=== PATIENT | female | born 1940 | race Caucasian/White ===

== ENCOUNTER 2017-03-27 11:36 | Day surgery (SDC) | payer OTHER ==
--- NOTE | 2017-03-21 09:28 | MH ---
cc: CHARLES JAIN M.D. DATE OF ADMISSION: 03/27/2017 REASON FOR ADMISSION Permanent pacemaker implantation. HISTORY OF PRESENT ILLNESS The patient is a 76-year-old white female, followed in our office by Dr. Corbin Orosco, with a history of atrial fibrillation, CVA, who is now admitted for pacemaker implantation. The patient on recent Holter monitoring revealed severe bradycardia despite having her calcium channel naomi discontinued recently. She has had pauses as long as 4 seconds in duration. The patient denies chest pain, shortness of breath, dizziness, syncope, pedal edema, paroxysmal nocturnal dyspnea. The patient has noted over the past several weeks increased fatigability, often feeling like sleeping both during morning and afternoon hours. PAST MEDICAL HISTORY 1. Paroxysmal atrial fibrillation. 2. CVA 02/22/2017. 3. Diabetes. 4. Hypertension. 5. Hyperlipidemia. MEDICATIONS Cardiac medications: 1. Atorvastatin 40 mg q.h.s. 2. Clonidine 0.2 mg t.i.d. 3. Eliquis 5 mg b.i.d. 4. Furosemide 20 mg q. daily. 5. Lisinopril 10 mg q. daily. ALLERGIES No known drug allergies. FAMILY HISTORY Noncontributory. SOCIAL HISTORY The patient has never smoked cigarettes. She drinks occasional alcohol. REVIEW OF SYSTEMS As in the history of present illness, otherwise negative or noncontributory. PHYSICAL EXAMINATION VITAL SIGNS: On exam blood pressure 140/70 with a pulse of 80, respirations 15. GENERAL: In general she is a well-developed, well-nourished white female in no acute distress. HEENT/NECK: Jugular venous pressure is normal. Carotid pulses are 2+ bilaterally and without bruits. CHEST: Examination of the chest reveals clear lung stephens. CARDIAC: On cardiac examination she has an irregularly irregular rhythm without S3 or murmur. ABDOMEN: On abdominal examination she has a soft, nontender abdomen. Bowel sounds are present. There is no definite hepatosplenomegaly. EXTREMITIES: Examination of the extremities reveals no clubbing, cyanosis or edema. IMPRESSION Severe bradycardia with recent Holter monitoring revealing multiple pauses as long as 4 seconds in duration in this 76-year-old white female with a history of paroxysmal atrial fibrillation, CVA, diabetes, hypertension, hyperlipidemia. She has been recommended by her primary engineer chief, Dr. Corbin Orosco, permanent pacemaker implantation. The nature of this procedure and the potential risks including but not limited to cardiac perforation, pneumothorax, bleeding, infection, have been outlined to the patient. She agrees to proceed. PLAN Permanent pacemaker implantation on 03/26/2017, holding Eliquis two days in advance of the procedure. MD BRYANT Mina/BT /11:18 AM /9:31 AM DEVON
[~2017-03-27] VITALS: Ht 167.6 cm; Wt 71.5 kg
[2017-03-27] VITALS (10 sets, daily range): BP systolic 151–186; BP diastolic 93–114; PULSE 68–80; RESP 18; TEMP 97.5–98.4; O2SAT 95
[~2017-03-27 11:36] MED LIST: 1-ME1LIQ PO; CHOL1CAP6 OR; CIPR1TAB50 PO; CLON.2 PO; FISH1000 PO; FLAG500T OR; LORT5TAB PO; METO50TA PO; RED600TA OR
[2017-03-27] MEDS ORDERED: CHOL1CAP14 PO (12:15)
[2017-03-27] MEDS ORDERED: CHLORHEXIDINE GLUCONATE 2 % 1 PACK (2 CLOTHS) TOPICAL SCH (12:15)
[2017-03-27] MEDS ORDERED: APIX5TAB PO (12:15)
[2017-03-27] MEDS ORDERED: DILT-4 PO (12:15)
[2017-03-27] MEDS ORDERED: POVIDONE IODINE 5% (ANTISEPSIS KIT) 4 APPLICATIONS EACH NARE SCH (12:15)
[2017-03-27] MEDS ORDERED: METOPROLOL TARTRATE 25 MG TAB PO PRN (12:15)
[2017-03-27] MEDS ORDERED: Hold AM Insulin & AM Hypoglycemic medications in diabetic patients PRN (12:15)
[2017-03-27] MEDS ORDERED: ATOR40TA16 PO (12:15)
[2017-03-27] MEDS ORDERED: TYLE325T PO (12:15)
[2017-03-27] MEDS ORDERED: ceFAZolin 2 GM PREMIX 50 ML IV SCH (12:15)
[2017-03-27] MEDS ORDERED: METF500T PO (12:15)
[2017-03-27] MEDS ORDERED: VANCOMYCIN 1000 MG/NS 250 ML IV SCH ×2 (12:15)
[2017-03-27] MEDS ORDERED: LACTATED RINGER'S 1000 ML IV PRN (12:15)
[2017-03-27] MEDS ORDERED: FISHCAP4 PO (12:15)
[2017-03-27] MEDS ORDERED: SODIUM CHLORID 0.9% 500 ML IV PRN (12:15)
[2017-03-27] MEDS ORDERED: FURO20TA PO (12:15)
[2017-03-27] MEDS ORDERED: POVIDONE IODINE 5% (ANTISEPSIS KIT) 4 APPLICATIONS EACH NARE PRN (12:15)
[2017-03-27] MEDS ORDERED: LISI10TA3 PO (12:15)
[2017-03-27] MEDS ORDERED: CHLORHEXIDINE GLUCONATE 2 % 1 PACK (2 CLOTHS) TOPICAL PRN (12:15)
[2017-03-27] MEDS ORDERED: CLON0.2T PO (12:15)
[2017-03-27] MEDS ORDERED: NO Heparin, Lovenox, Coumadin at least 12 hours prior to procedure. PRN (12:15)
[2017-03-27] MEDS ORDERED: INSULIN HUMAN REGULAR 1,000 UNITS/10 ML VIAL SQ PRN (12:15)
[2017-03-27 12:31] LABS: AUTOMATED NEUTROPHIL # 5.2 TH/MM3 (1.8-7.7); BASOPHIL % 0.5 % (0.0-2.0); EOSINOPHIL # 0.2 TH/MM3 (0-0.4); EOSINOPHIL % 2.1 % (0.0-4.0); HEMATOCRIT 41.6 % (35.0-46.0); HEMO FLAGS DIFF FINAL; LYMPH % 33.1 % (9.0-44.0); LYMPHOCYTE # 2.9 TH/MM3 (1.0-4.8); MEAN CELL VOLUME 88.8 FL (80.0-100.0); MEAN CORPUSCULAR HEMOGLOBIN 29.7 PG (27.0-34.0); MEAN CORPUSCULAR HGB CONC 33.4 % (32.0-36.0); MONO % 5.6 % (0.0-8.0); NEUT % 58.7 % (16.0-70.0); PLATELET COUNT 223 TH/MM3 (150-450); RED BLOOD COUNT 4.69 MIL/MM3 (4.00-5.30); RED CELL DISTRIBUTION WIDTH 15.9 % (11.6-17.2); WHITE BLOOD COUNT 8.8 TH/MM3 (4.0-11.0)
[2017-03-27 12:39] LABS: APTT (PATIENT) 28.6 SEC (24.3-30.1); PROTHROMBIN TIME - PATIENT 11.3 SEC (9.8-11.6)
[2017-03-27] MEDS ORDERED: NS 1000 ML IV SCH (13:00)
[2017-03-27] MEDS ORDERED: MUPIROCIN 2% OINT 1 APPLIC/GM SYR NASAL SCH (13:00)
[2017-03-27 13:04] LABS: BICARBONATE 29.9 MEQ/L (21.0-32.0); POTASSIUM 3.2 MEQ/L (3.5-5.1)
[2017-03-27] MEDS ORDERED: VANCOMYCIN 500 MG VIAL ONE (13:58)
[2017-03-27] MEDS ORDERED: LIDOCAINE HCL 2% 50 ML VIAL ONE (13:58)
[2017-03-27] MEDS ORDERED: MIDAZOLAM HCL 2 MG/2 ML VIAL ONE (13:58)
[2017-03-27] MEDS ORDERED: traMADol HCL 50 MG TAB PO PRN (15:00)
[2017-03-27] MEDS ORDERED: ZOLPIDEM TARTRATE 5 MG TAB PO PRN (15:00)
[2017-03-27] MEDS ORDERED: ACETAMINOPHEN 325 MG TAB PO SCH (15:00)
--- NOTE | 2017-03-27 15:05 | CATHPROC ---
[facility] HIS Report Study Information Study Number Admission Scheduled Start Study Start [id number] Mar 27 2017 11:36AM 03/27/2017 Mar 27 2017 1:37PM [facility] Cardiac Pacer/ICD Admit Source Facility Department Other [facility] - [employer] Operator Physician and Clinical Staff Initial Tao Dahl Buyer Grain Soledad Montero RN Other Anesthesia, SENIOR GENETIC COUNSELOR Recorder Umm Arais BSRJt Scrub Charly Fernandez,RT(R) Procedures Performed Procedure Lead Insertion Equipment Time Couture Dressmaker Description Size Mfg Part Number Used/Scraped 14:31 BIOTRONIK LEAD, SOLIA 60 PRO MRI * [id number] Used 14:37 BIOTRONIK PACEMAKER, ELUNA 8 SR-T * [id number] Used [id number] 13:38 MEDLINE INDUSTRIES SUTURE, STRIP PLUS 1/2" * Used *[id number] 13:38 MEDLINE PACER ADHESIVE, MASTISOL 2/3CC 2/3CC 0523-48 Used 13:38 MEDLINE PACER GRIFFIN, LIMB * 2530 *[id number] Used [id number] 13:38 MEDLINE PACER PACK, PACER CUSTOM * Used *[id number] 13:38 MEDLINE PACER PEN, SKIN DUAL W/ RULER * Used *[id number] 13:42 [facility] Yovia PACER SAFE SHEATH, FR6, 13CM FR 6 [id number] Used 14:20 Needle Sponge Count 2 22 Used 14:42 Needle Sponge Count 2 22 Used 14:53 Needle Sponge Count 2 22 Used 14:19 Needle Sponge Count 20 200 Used 14:20 Needle Sponge Count 25 1 Used 14:42 Needle Sponge Count 25 1 Used 14:53 Needle Sponge Count 25 1 Used 14:52 Needle Sponge Count 3 3 Used 14:42 Needle Sponge Count 3 3 Used 14:19 Needle Sponge Count 3 3 Used [id number] *[id number] SUTURE, 3-0 VICRYL [SH] ([id number]) SUTURE, 3-0 VICRYL [SH] ([id number]) SUTURE, 4-0 MONOCRYL [PS2] (Y496G) [id number] 13:38 [employer],WARM AIR CCL * Used *[id number] [facility] PAD, ELECTROSURGICAL 13:38 * [id number] *[id number] Used SURGICAL GROUNDING ORANGE [id number] 13:38 [employer] WILLIAM. ELECTRODE, PRO-PADZ BIPHASIC * Used *[id number] Equipment Model, Serial, Lot Number and Expiration Data Description Model Number Serial Number Lot Number Expiration Date LEAD, SOLDANIS 60 PRO MRI [id number] 10-30-2018 PACEMAKER, ELUNA 8 SR-T [id number] 06-01-2018 History: Current Medications Medication Dosage/Unit Route Frequency Last Date/Time Taken Statins (any) CLONIDINE ELIQUIS LASIX LISINOPRIL History: Allergies Allergy Reaction NKDA History: Risk Factors Family History of Hypertension Dyslipidemia Previous CA Previous Heart Failure Premature CAD Yes Yes No No Yes Prior Valve Prior PCI Prior CABG Surgery No No No Cerebrovascular Peripheral Artery Chronic Lung On Dialysis Diabetes Diabetes Therapy Disease Disease Disease No Yes No No Yes Oral History: Risk Factors Selection Items Diabetes Hyperlipidemia History: Other Disease Selection Items HTN Stroke Labs Hgb (g/dl) Hct (%) RBC (MIL/MM3) WBC (l/cumm) Platelets (thousands) 11.60-17.00 35.00-51.00 4.00-5.90 4.00-11.00 150.00-450.00 13.9 41.6 4.6 8.8 223 Glucose (mg/dl) BUN (mg/dl) Creatinine (mg/dl) BUN:Creatinine (1:x) 74.00-106.00 7.00-18.00 0.50-1.30 10.00-20.00 100 18 1.3 13.8 Na (meq/l) K (meq/l) Cl (meq/l) CO2 (mmol/L) Ca (mg/dl) 136.00-145.00 3.50-5.10 98.00-107.00 21.00-32.00 8.50-10.10 143 3.2 104 29.9 9.8 INR (PTT:PT) 0.90-1.10 1 Medication Medication Total Dose (Bolus/Oral) Medication Total Dosage/Unit 2% XYLOCAINE 50 mL Medications (Bolus/Oral) Medication Time Given Dosage/Unit Administered By Reason 2% XYLOCAINE 03/27/2017 2:28:00 PM 50 mL Tao Monahan For pain 50 mL 2% XYLOCAINE given in lab by Tao Monahan via Subcutaneous. Ordered by Tao Monahan. Reason: Fo r pain. Medication (Drip) Medication Time Given Dosage/Unit Concentration/Unit Diluent (ml) Solution ANCEF 03/27/2017 1:55:00 PM 2 g 2 g ANCEF given in lab by Anesthesia, SENIOR GENETIC COUNSELOR in Right Antecubital via Peripheral IV. Ordered by Tao Monahan. Reason: As per physicians verbal order. IV Solutions 03/27/2017 2:01:08 PM 0 mL (IV) NaCl .9 IV Solutions given in lab by Anesthesia, SENIOR GENETIC COUNSELOR in Right Antecubital via Peripheral IV. Pump/Drip Flow = 50 ml/hr using NaCl .9. Ordered by Tao Monahan. Reason: As per physicians verbal order. IV Solutions 03/27/2017 2:01:50 PM 0 mL (IV) NaCl .9 IV Solutions given in lab by Anesthesia, SENIOR GENETIC COUNSELOR in Left Antecubital via Peripheral IV. Pump/Drip Flow = 50 ml/hr using NaCl .9. Ordered by Tao Monahan. Reason: As per physicians verbal order. VANCOMYCIN DRIP 03/27/2017 1:55:00 PM 1 g 1 g VANCOMYCIN DRIP given in lab by Anesthesia, SENIOR GENETIC COUNSELOR in Left Antecubital via Peripheral IV. Ordered b Tao Harrell. Reason: As per physicians verbal order. Initial Case Assessment Cardiovascular HR NIBP 67 192/124 Edema Present Skin color Skin None Normal Warm Dry Neurological State Oriented to time-place- Alert Moves all extremities person Respiration - General Respiration Rate SpO2 (%) (B/min) 18 100 Final Case Assessment Cardiovascular HR NIBP 60 140/84 Edema Present Skin color Skin None Normal Warm Dry Neurological State Oriented to time-place- Alert Moves all extremities person Respiration - General Respiration Rate SpO2 (%) (B/min) 18 100 Chronological Log Time Study Chronological Log 13:45:44 Patient arrived via Bed. 13:45:46 Patient Name, D.O.B, / Armband Verified By R.N. 13:45:48 Consent signed by the physician and the patient and verified by the [employer] Operator staff. 13:45:51 Pre-op and post- op instructions given; patient acknowledges understanding of instructions. 13:45:53 Anesthesia at bedside. Assumes care of patient. Maikol SENIOR GENETIC COUNSELOR 2 g ANCEF given in lab by Anesthesia, SENIOR GENETIC COUNSELOR in Right Antecubital via Peripheral IV. Ordered by Tao Rose. Reason: 13:55:00 As per physicians verbal order. 1 g VANCOMYCIN DRIP given in lab by Anesthesia, SENIOR GENETIC COUNSELOR in Left Antecubital via Peripheral IV. Ord ered by Tao Monahan. 13:55:00 Reason: As per physicians verbal order. 13:55:48 Presedation assessment performed by Tire Builder Operator RN. 13:55:57 Patient has been NPO for More than 6Hrs. 13:56:00 Skin Breakdown- none 13:58:38 Patient Warmer Placed on the Table. 14:00:12 Disposable Defibrillator Pads Placed On Patient. 14:00:15 [place]ane Prominences Protected 14:00:20 A # 20 IV was noted in the Antecubital (left). Grade = ~GRADE~ 14:00:37 A # 20 IV was noted in the Antecubital (right). Grade = ~GRADE~ IV Solutions given in lab by Anesthesia, SENIOR GENETIC COUNSELOR in Right Antecubital via Peripheral IV. Pump/Drip Flow = 50 ml/hr using 14:01:08 NaCl .9. Ordered by Tao Monahan. Reason: As per physicians verbal order. IV Solutions given in lab by Anesthesia, SENIOR GENETIC COUNSELOR in Left Antecubital via Peripheral IV. Pump/Drip Flow = 50 ml/hr using 14:01:50 NaCl .9. Ordered by Tao Monahan. Reason: As per physicians verbal order. 14:03:18 History and physical on the chart or being dictated. Assessment: Initial Case, HR=67 BPM, YDCN=189/124 mmhg, Edema=None, Color=Normal, Skin = Warm, Dry 14:03:22 Neurological: State=Alert, Ox3, HERRERA Respiration: Resp=18 B/min, JkO8=313 % 14:04:13 Table restraints applied according to hospital policy 14:04:18 Left Upper Chest Prepped Times Two. 14:04:32 Bovie ground pad applied to: right thigh 14:04:49 2% CHLORHEXIDINE GLUCONATE WASH AND NASAL SWIPE DONE PRIOR TO PROCEDURE. First Sponge And Instrument Count Done by Soledad Montero RN. 14:19:09 Hypo's: 3, Sponges: 25, Bovie/scratch: 2 Sutures: 6, Blades: 2, Instruments: 26, Syveck Patches: 0 14:21:27 Immediate Presedation assesment performed by physician. Time Out. Correct patient, procedure, procedure equipment, site and side verified with physicia n present. Time 14:26:05 concurred by MD, individual staff and SENIOR GENETIC COUNSELOR. Time Out #2 - Consents verified, patient in correct position, all results are labled and displa yed, safety precautions 14:26:11 taken, antibiotics administered. Time out concurred by MD, individual staff and SENIOR GENETIC COUNSELOR in procedu re 14:26:13 Case Start 14:28:00 50 mL 2% XYLOCAINE given in lab by Tao Monahan via Subcutaneous. Ordered by Tao Monahan. Reason: For pain. 14:29:16 Vascular access was obtained in the Subclav. Vein (Lft. 14:29:23 Surgical Incision Made. 14:30:32 A pocket was created at the L Upper Chest. 14:30:50 A SAFE SHEATH, FR6, 13CM FR 6 was advanced into the Subclav. Vein (Lft using the Percutaneo us technique. 14:33:49 A LEAD, SOLIA 60 PRO MRI * was inserted and positioned in the RV. 14:33:57 Lead placement verified under fluoroscopy 14:34:29 The RV lead impedance and threshold being tested. 14:35:20 The RV lead was sutured to the fascia. 14:41:07 A PACEMAKER, ELUNA 8 SR-T * was connected and placed in the pocket. Second Sponge And Instrument Count Done by Tao Monahan. 14:41:13 Hypo's: 3, Sponges: 25, Bovie/scratch: 2 Sutures: ~SUTURE~, Blades: 2, Instruments: ~INSTRU~, Syveck Patches: ~SYVECK PATCH~ 14:42:41 The pocket was closed. 14:42:51 Implant Procedure was performed. 14:43:00 A PPM Implant . (Single) The Final Sponge And Instrument Count Done by Tao Monahan. 14:53:00 Hypo's: 3, Sponges: 25, Bovie/scratch: 2 Sutures: 6, Blades: 2, Instruments: 26, Syveck Patches: 0 Assessment: Final Case, HR=60 BPM, OWEZ=636/84 mmhg, Edema=None, Color=Normal, Skin = Warm, Dry 14:54:15 Neurological: State=Alert, Ox3, HERRERA Respiration: Resp=18 B/min, AwQ3=686 % 14:55:23 Sterile dressing applied to site 14:56:10 A sling was placed on the affected arm. 14:56:15 Defibrillator and ground pads removed. Skin intact. 14:56:22 Case End 14:56:40 No case complications noted. 14:56:43 Cine recording checked. 14:56:49 Holding Area notified of successful intervention. 14:56:52 Bedside Report will be given. 14:56:54 Implantable Device card placed in patient's chart. 14:56:56 Contrast Scanned 14:57:05 Verbal Stimulation=2 Physical Stimulation=2 Airway=2 Respiration=2 TOTAL=10. (0=absent, 1= limited, 2=present) 15:03:44 Patient moved to stretcher and transported to DOCU in stable condition. End Study - Contrast Media Used In Study Contrast Total Opened (mL) Total Used (mL) Total Wasted (mL) Omnipaque 50 10 40 End Study - Maximum Contrast Load Max Contrast Load (mL) 280.8 End Study - Radiation Exposure Fluoro Time (minutes) 2.3 End Study - Patient Disposition Complications Transferred To Interventional Outcome No Telemetry Bed successful
[2017-03-27] MEDS ORDERED: POTASSIUM CHLORIDE 10 MEQ CONTROLLED RELEASE TAB PO ONE (15:15)
[2017-03-27] MEDS ORDERED: PROPOFOL 200 MG/20 ML AMP IV ONE (17:11)
--- NOTE | 2017-03-27 17:17 | RADRPT ---
EXAM DATE/TIME: 03/27/2017 15:29 [facility] COMPARISON: No previous studies available for comparison. INDICATIONS : Post pacemaker placement. MEDICAL HISTORY : None. SURGICAL HISTORY : Pacemaker. ENCOUNTER: Initial ACUITY: 1 day PAIN SCORE: Non-responsive. LOCATION: Bilateral chest FINDINGS: There is a single lead pacemaker with lead projecting over the right ventricle. No significant pneumo thorax. Minimal linear opacities in the left lower lung zone consistent with atelectasis/scarring. Ca rdiac silhouette is borderline enlarged. Bony thorax is intact. CONCLUSION: 1. Single lead pacemaker with lead projecting over the right ventricle. No pneumothorax. Jhonny Coy MD on March 27, 2017 at 17:14 Board Certified Radiologist. This report was verified electronically.
[2017-03-27] MEDS ORDERED: metFORMIN HCL 500 MG TAB PO SCH (18:00)
[2017-03-27] MEDS: FUROSEMIDE 20 MG TAB PO SCH (18:31)
[2017-03-27] MEDS: LISINOPRIL 10 MG TAB PO SCH (18:32)
[2017-03-27] MEDS: cloNIDine HCL 0.2 MG TAB PO SCH (20:02)
[2017-03-27] MEDS ORDERED: ATORVASTATIN 40 MG TAB PO SCH (21:00)
[2017-03-28] VITALS (8 sets, daily range): BP systolic 166–188; BP diastolic 102–105; PULSE 59–77; RESP 18–20; TEMP 98.2–98.7; O2SAT 95–96
[2017-03-28] MEDS ORDERED: VANCOMYCIN INJ 1,000 MG in SODIUM CHLOR 0.9% 250 ML INJ 250 ML IV ONE (03:00)
[2017-03-28 06:32] LABS: POTASSIUM 3.1 MEQ/L (3.5-5.1)
[2017-03-28] MEDS: cloNIDine HCL 0.2 MG TAB PO SCH (08:05)
[2017-03-28] MEDS: FUROSEMIDE 20 MG TAB PO SCH (08:05)
[2017-03-28] MEDS: LISINOPRIL 10 MG TAB PO SCH (08:05)
--- NOTE | 2017-03-28 08:33 | PD.CARD.PN ---
Subjective Subjective Remarks Feels "great". Denies dyspnea, incisional pain, dizziness. Objective Medications Item Value Date Time Atorvastatin 40 mg 03/27/172099 Calcium HS/PO 03/27/172001 (Lipitor) Clonidine 0.2 mg 03/27/172099 (Catapres) BID/PO 03/28/17804 Lisinopril 10 mg 03/27/171822 (Prinivil) DAILY/PO 03/28/17804 Furosemide 20 mg 03/27/171821 (Lasix) DAILY/PO 03/28/17804 Vital Signs / I&O Vital Signs Date Time Temp Pulse Resp B/P Pulse Ox O2 Delivery O2 Flow Rate FiO2 03/28/17 07:48 77 03/28/17 07:48 98.7 77 20 188/105 96 03/28/17 06:00 60 03/28/17 05:00 60 03/28/17 04:00 98.2 64 18 166/102 95 03/28/17 04:00 60 03/28/17 03:00 64 03/28/17 02:00 70 03/28/17 01:00 59 03/28/17 00:00 65 03/27/17 23:24 98.4 70 18 157/93 95 03/27/17 23:00 78 03/27/17 22:00 68 03/27/17 21:00 78 03/27/17 20:00 98.0 72 18 151/107 95 03/27/17 20:00 74 03/27/17 19:00 80 03/27/17 18:40 169/114 03/27/17 18:00 78 03/27/17 17:00 73 03/27/17 12:17 97.5 76 18 186/102 95 I/O 03/27/17 03/27/17 03/27/17 03/28/17 03/28/17 03/28/17 07:00 15:00 23:00 07:00 15:00 23:00 Intake Total 490 ml Output Total 800 ml Balance -310 ml Intake Oral 240 ml IV Total 250 ml Output Urine Total 800 ml Physical Exam Pacer site clean, dry, intact, no hematoma. Laboratory Laboratory Tests Test 03/27/17 03/28/17 12:07 03:52 White Blood Count 8.8 TH/MM3 Red Blood Count 4.69 MIL/MM3 Hemoglobin 13.9 GM/DL Hematocrit 41.6 % Mean Corpuscular Volume 88.8 FL Mean Corpuscular Hemoglobin 29.7 PG Mean Corpuscular Hemoglobin 33.4 % Concent Red Cell Distribution Width 15.9 % Platelet Count 223 TH/MM3 Mean Platelet Volume 8.9 FL Neutrophils (%) (Auto) 58.7 % Lymphocytes (%) (Auto) 33.1 % Monocytes (%) (Auto) 5.6 % Eosinophils (%) (Auto) 2.1 % Basophils (%) (Auto) 0.5 % Neutrophils # (Auto) 5.2 TH/MM3 Lymphocytes # (Auto) 2.9 TH/MM3 Monocytes # (Auto) 0.5 TH/MM3 Eosinophils # (Auto) 0.2 TH/MM3 Basophils # (Auto) 0.0 TH/MM3 CBC Comment DIFF FINAL Differential Comment Prothrombin Time 11.3 SEC Prothromb Time International 1.0 RATIO Ratio Activated Partial 28.6 SEC Thromboplast Time Sodium Level 143 MEQ/L 143 MEQ/L Potassium Level 3.2 MEQ/L 3.1 MEQ/L Chloride Level 104 MEQ/L 106 MEQ/L Carbon Dioxide Level 29.9 MEQ/L 27.0 MEQ/L Anion Gap 9 MEQ/L 10 MEQ/L Blood Urea Nitrogen 18 MG/DL 24 MG/DL Creatinine 1.34 MG/DL 1.34 MG/DL Estimat Glomerular Filtration 38 ML/MIN 38 ML/MIN Rate Random Glucose 100 MG/DL 99 MG/DL Calcium Level 9.8 MG/DL 9.5 MG/DL Imaging Last 48 hours Impressions Chest X-Ray 03/27/17 9018 Signed Impressions: Service Date/Time: Monday, March 27, 2017 15:29 - CONCLUSION: 1. Single lead pacemaker with lead projecting over the right ventricle. No pneumothorax. Jhonny Coy MD Assessment and Plan Problem List: (1) Status post placement of cardiac pacemaker Assessment and Plan: Stable overnight. Pacer site OK. Pacer function OK on re -interrogation. Post op CXR shows no PNTX. To discharge today, same home medications plus Levaquin 250 mg qd for 5 days, one week f/u for incision recheck. (2) Hypertension Assessment and Plan: Suboptimal BP control. Office records indicate patient was taking clonidine TID. Will increase Lisinopril to 40 mg qd. Patient also hypokalemic, taking diuretic. Will add KCl 20 mEq qd. (3) Chronic atrial fibrillation Assessment and Plan: Stable. No HR control issues evident. Resume anticoagulation therapy. Code Status full code Discussed Condition With patient Problem Qualifiers (1) Hypertension: Qualified Code: I10 - Essential hypertension Tao Monahan MD Mar 28, 2017 08:33
[2017-03-28] MEDS ORDERED: LEVA250T14 PO (08:41)
[2017-03-28] MEDS ORDERED: POTA-243 PO (08:41)
[2017-03-28] MEDS ORDERED: LISI40TA PO (08:41)
[2017-03-28] MEDS ORDERED: POTASSIUM CHLORIDE 10 MEQ CONTROLLED RELEASE TAB PO ONE (08:45)
[2017-03-28] MEDS ORDERED: LISINOPRIL 10 MG TAB PO SCH (09:00)
[2017-03-28] MEDS ORDERED: CHOLECALCIFEROL (VIT D3) 5000 UNIT CAP PO SCH (09:00)
[2017-03-28] MEDS ORDERED: NON-FORMULARY DRUG (Fish Oil-Cholecalciferol (Fish Oil + D3) 1 CAP) PO SCH (09:00)
--- NOTE | 2017-03-28 13:02 | EKG ---
Date Performed: 03/27/2017 Time Performed: 12:41:52 PTAGE: 76 years EKG: Atrial fibrillation Right bundle branch block Possible septal infarct - age undetermined Le ft ventricular hypertrophy Inferior/lateral ST-T changes may be due to hypertrophy and/or ischemia Ab normal ECG PREVIOUS TRACING : 12/25/2004 16.48 DOCTOR: Constantin Walker Interpretating Date/Time 03/28/2017 12:56:10
--- NOTE | 2017-03-28 14:13 | MP ---
cc: EVERETT GARRETT MD, GLENN H. M.D. DATE OF SURGERY 03/27/2017 PROCEDURE Single chamber permanent pacemaker implantation via the left subclavian vein. INDICATIONS Severe symptomatic bradycardia. OPERATIVE NOTES The patient was brought to the operating suite in a fasting state after having signed informed consent. The left upper chest was prepped and draped as per policy and anesthetized with 1% lidocaine. After administration of 10 cc of contrast through a left arm peripheral IV, central venous access was obtained via the left subclavian vein using modified Seldinger technique without difficulty. A transverse incision was made inferior to the left clavicle and using blunt dissection a subcutaneous pocket was formed down to the pectoralis fascia. Over the guidewire a 6-Nauruan sheath was placed and through this sheath a ventricular active fixation lead was introduced and its tip positioned in the right ventricular apex where good current of injury, stimulation threshold (0.6 volts) and sensitivity (6.8 mV) were demonstrated. This lead was secured into place using 2-0 silk ties down to the pectoralis fascia. The lead was connected to the pacemaker generator which is a Biotronik Eluna device. The lead and the generator were placed back into the subcutaneous pocket which was closed using 3-0 Vicryl interrupted stitches in two layers to close the subcutaneous tissue and then 4-0 Monocryl running stitch to close the subcuticular tissue. Overlapping Steri-Strips and a dressing were applied. There were no apparent immediate complications. CONCLUSION Successful single chamber permanent pacemaker implantation via the left subclavian vein using a Biotronik Eluna pacemaker generator. Tao Monahan MD [facility] /2:54 PM /2:04 PM [facility]ON
== END 2017-03-28 15:20 | disposition home or self-care (01) ==
LOC: HSDC 11:36 → HDIC 11:37 → HCIN 17:31 → HSDC 03-28 15:20
PROVIDERS: ATTEND Internal Medicine Cardiovascular Disease
DX: I49.5 Sick sinus syndrome (principal); I48.0 Paroxysmal atrial fibrillation; E11.9 Type 2 diabetes mellitus without complications; I10 Essential (primary) hypertension; E78.5 Hyperlipidemia, unspecified; R53.83 Other fatigue; E87.6 Hypokalemia; Z86.73 Personal history of transient ischemic attack (TIA), and cerebral infarction without residual deficits; Z79.01 Long term (current) use of anticoagulants
CPT/HCPCS: 00530; 33207; 71010; 80048; 85025; 85610; 85730; 93005; C1786; C1898; J0690; J2250; J3010; J3370; J7050

== ENCOUNTER 2018-01-22 07:26 | Inpatient (IN) | payer OTHER, MEDICARE ==
[2018-01-22] VITALS (8 sets, daily range): BP systolic 86–117; BP diastolic 51–73; PULSE 60–73; RESP 14–20; TEMP 97.3–98; O2SAT 96–100
[~2018-01-22] VITALS: Ht 167.6 cm; Wt 75.0 kg
[~2018-01-22 07:26] MED LIST changes: -1-ME1LIQ PO; +APIX5TAB PO; +ATOR40TA16 PO; -CHOL1CAP6 OR; -CIPR1TAB50 PO; -CLON.2 PO; +CLON0.2T PO; +D 50CAP2 PO; +DILT-4 PO; -FISH1000 PO; +FISHCAP4 PO; -FLAG500T OR; +FURO20TA PO; +KLOR10TA PO; +LEVA250T14 PO; +LISI40TA PO; -LORT5TAB PO; +METF500T PO; -METO50TA PO; -RED600TA OR; +TYLE325T PO
[2018-01-22] MEDS ORDERED: SODIUM CHLORID 0.9% 500 ML INJ 500 ML IV ONE ×2 (08:15→09:30)
[2018-01-22] MEDS ORDERED: SODIUM CHLORIDE 0.9% FLUSH 10 ML FLUSH IVF PRN (08:15)
--- NOTE | 2018-01-22 08:17 | PD ---
HPI Chief Complaint: General Weakness Time Seen by Provider: 08:13 Travel History International Travel<30 days: No Contact w/Intl Traveler<30days: No Traveled to known affect area: No History of Present Illness HPI 77-year-old female patient with history of previous stroke, pacemaker, presents to the ER today because she states that she got up to go to the bathroom this morning and is fell down the floor, feels very weak. She states that she has been feeling weak for several days. She denies any fevers, nausea, vomiting, chest pains, trouble breathing, abdominal pains, black stools, blood in the stools. She denies any other issues. She states she has not been eating very well recently because she just does not feel like eating. Modifying Factors: None Associated Signs & Symptoms: General weakness Risk Factors: Elderly PFSH Past Medical History Asthma: No Autoimmune Disease: No Blood Disorders: No Anxiety: No Depression: No Heart Rhythm Problems: Yes Cancer: No Cardiovascular Problems: Yes High Cholesterol: Yes Chest Pain: No Congestive Heart Failure: No Cerebrovascular Accident: Yes (CVA 2010) Diabetes: Yes Patient Takes Glucophage: Yes Endocrine: No Glaucoma: No Genitourinary: No Headaches: No Hepatitis: No Hiatal Hernia: No Hypertension: Yes Musculoskeletal: No Neurologic: Yes Psychiatric: No Respiratory: No Myocardial Infarction: No Seizures: No Sickle Cell Disease: No Sleep Apnea: No Thyroid Disease: No : 4 Para: 4 Past Surgical History Abdominal Surgery: No AICD: No Cardiac Surgery: Yes (pacemaker) Ear Surgery: No Endocrine Surgery: No Eye Surgery: Yes (LT CATARACT) Genitourinary Surgery: No Gynecologic Surgery: Yes Oral Surgery: No Pacemaker: Yes Thoracic Surgery: No Social History Alcohol Use: No Tobacco Use: No Substance Use: No Allergies-Medications (Allergen,Severity, Reaction): Coded Allergies: No Known Allergies (Verified Adverse Reaction, Unknown, 01/22/18) Reported Meds & Prescriptions Reported Meds & Active Scripts Active Klor-Con 10 (Potassium Chloride) 10 Meq Tab 10 Meq PO BID 30 Days Reported Tiazac (Diltiazem ER 24 HR) 120 Mg Caper 120 Mg PO DAILY Metformin (Metformin HCl) 500 Mg Tab 500 Mg PO BIDPC With meals Furosemide 20 Mg Tab 20 Mg PO DAILY Fish Oil + D3 (Fish Oil-Cholecalciferol) 1,200-1,000 Mg-Unit Cap 1 Cap PO DAILY Eliquis (Apixaban) 5 Mg Tab 5 Mg PO BID D3 Maximum Strength (Cholecalciferol) 5,000 Unit Cap 5,000 Units PO DAILY Clonidine (Clonidine HCl) 0.2 Mg Tab 0.2 Mg PO BID Atorvastatin (Atorvastatin Calcium) 40 Mg Tab 40 Mg PO HS Review of Systems Except as stated in HPI: all other systems reviewed are Neg Physical Exam Narrative GENERAL: Well-developed elderly white female patient in moderate distress. Appears fatigued. Awake and oriented 3. SKIN: Warm and dry. HEAD: Atraumatic. Normocephalic. EYES: Pupils equal and round. No scleral icterus. No injection or drainage. Pale conjunctiva. ENT: No nasal bleeding or discharge. Mucous membranes pink and moist. NECK: Trachea midline. No JVD. CARDIOVASCULAR: Regular rate and rhythm. RESPIRATORY: No accessory muscle use. Clear to auscultation. Breath sounds equal bilaterally. GASTROINTESTINAL: Abdomen soft, non-tender, nondistended. Hepatic and splenic margins not palpable. MUSCULOSKELETAL: Extremities without clubbing, cyanosis, or edema. No obvious deformities. NEUROLOGICAL: Awake and alert. No obvious cranial nerve deficits. Motor grossly within normal limits. Five out of 5 muscle strength in the arms and legs. Normal speech. PSYCHIATRIC: Appropriate mood and affect; insight and judgment normal. Data Data Last Documented VS Vital Signs Date Time Temp Pulse Resp B/P (MAP) Pulse Ox O2 Delivery O2 Flow Rate FiO2 01/22/18 10:32 88/55 (66) 01/22/18 08:17 16 96 Room Air 01/22/18 07:40 97.5 66 Orders Orders Electrocardiogram (01/22/18 08:13) Complete Blood Count With Diff (01/22/18 08:13) Comprehensive Metabolic Panel (01/22/18 08:13) Magnesium (Mg) (01/22/18 08:13) Ckmb (Isoenzyme) Profile (01/22/18 08:13) Troponin I (01/22/18 08:13) Act Partial Throm Time (Ptt) (01/22/18 08:13) Prothrombin Time / Inr (Pt) (01/22/18 08:13) Urinalysis - C+S If Indicated (01/22/18 08:13) Chest, Single Ap (01/22/18 08:13) Ct Brain W/O Iv Contrast(Rout) (01/22/18 08:13) Ecg Monitoring (01/22/18 08:13) Iv Access Insert/Monitor (01/22/18 08:13) Oximetry (01/22/18 08:13) Sodium Chloride 0.9% Flush (Ns Flush) (01/22/18 08:15) Sodium Chlorid 0.9% 500 Ml Inj (Ns 500 M (01/22/18 08:15) Sodium Chlorid 0.9% 500 Ml Inj (Ns 500 M (01/22/18 09:30) Urine Culture (01/22/18 09:36) Blood Culture (01/22/18 10:29) Piperacil-Tazo 3.375 Gm Premix (Zosyn 3. (01/22/18 10:30) Lactic Acid Sepsis Protocol (01/22/18 10:30) Admit Order (Ed Use Only) (01/22/18 10:39) Labs Laboratory Tests Test 01/22/18 08:15 01/22/18 09:36 White Blood Count 11.4 TH/MM3 Red Blood Count 3.58 MIL/MM3 Hemoglobin 10.7 GM/DL Hematocrit 32.3 % Mean Corpuscular Volume 90.3 FL Mean Corpuscular Hemoglobin 29.8 PG Mean Corpuscular Hemoglobin Concent 33.0 % Red Cell Distribution Width 16.0 % Platelet Count 214 TH/MM3 Mean Platelet Volume 9.2 FL Neutrophils (%) (Auto) 67.3 % Lymphocytes (%) (Auto) 22.2 % Monocytes (%) (Auto) 7.6 % Eosinophils (%) (Auto) 2.2 % Basophils (%) (Auto) 0.7 % Neutrophils # (Auto) 7.6 TH/MM3 Lymphocytes # (Auto) 2.5 TH/MM3 Monocytes # (Auto) 0.9 TH/MM3 Eosinophils # (Auto) 0.3 TH/MM3 Basophils # (Auto) 0.1 TH/MM3 CBC Comment DIFF FINAL Differential Comment Prothrombin Time 12.5 SEC Prothromb Time International Ratio 1.2 RATIO Activated Partial Thromboplast Time 29.9 SEC Blood Urea Nitrogen 36 MG/DL Creatinine 2.66 MG/DL Random Glucose 112 MG/DL Total Protein 6.2 GM/DL Albumin 3.4 GM/DL Calcium Level 10.0 MG/DL Magnesium Level 1.8 MG/DL Alkaline Phosphatase 73 U/L Aspartate Amino Transf (AST/SGOT) 17 U/L Alanine Aminotransferase (ALT/SGPT) 20 U/L Total Bilirubin 0.4 MG/DL Sodium Level 145 MEQ/L Potassium Level 4.3 MEQ/L Chloride Level 107 MEQ/L Carbon Dioxide Level 23.3 MEQ/L Anion Gap 15 MEQ/L Estimat Glomerular Filtration Rate 17 ML/MIN Total Creatine Kinase 62 U/L Troponin I 0.04 NG/ML Urine Color YELLOW Urine Turbidity CLEAR Urine pH 5.0 Urine Specific [place] 1.008 Urine Protein NEG mg/dL Urine Glucose (UA) NEG mg/dL Urine Ketones NEG mg/dL Urine Occult Blood NEG Urine Nitrite NEG Urine Bilirubin NEG Urine Urobilinogen LESS THAN 2.0 MG/DL Urine Leukocyte Esterase LARGE Urine RBC 1 /hpf Urine WBC 15 /hpf Urine Squamous Epithelial Cells <1 /hpf Urine Uric Acid Crystals RARE /hpf Urine Hyaline Casts 9 /lpf Urine Mucus FEW /lpf Microscopic Urinalysis Comment CULTURE INDICATED MDM Medical Decision Making Medical Screen Exam Complete: Yes Emergency Medical Condition: Yes Medical Record Reviewed: Yes Interpretation(s) EKG shows a paced rhythm at a rate of 65 bpm. No signs of acute ST elevations or depressions. Laboratory Tests Test 01/22/18 08:15 01/22/18 09:36 White Blood Count 11.4 TH/MM3 (4.0-11.0) Red Blood Count 3.58 MIL/MM3 (4.00-5.30) Hemoglobin 10.7 GM/DL (11.6-15.3) Hematocrit 32.3 % (35.0-46.0) Prothrombin Time 12.5 SEC (9.8-11.6) Blood Urea Nitrogen 36 MG/DL (7-18) Creatinine 2.66 MG/DL (0.50-1.00) Random Glucose 112 MG/DL (74-106) Total Protein 6.2 GM/DL (6.4-8.2) Estimat Glomerular Filtration Rate 17 ML/MIN (>89) Urine Leukocyte Esterase LARGE (NEG) Urine WBC 15 /hpf (0-5) Urine Uric Acid Crystals RARE /hpf (NONE) Urine Mucus FEW /lpf (OCC) Last [address] 01/22/18812 Signed Impressions: CONCLUSION: Chest X-Ray 01/22/18812 Signed Impressions: CONCLUSION: Differential Diagnosis General weakness: Dehydration versus symptomatic anemia versus electrolyte abnormalities versus sepsis Narrative Course CT the brain did not show any signs of acute intracranial processes. Lab work shows significant elevation of BUN and creatinine concerning for acute kidney injury and possible dehydration. UA shows signs a UTI. Patient was initiated on IV fluids, her blood pressure remained low despite the treatment. At this point, IV antibiotics were initiated after blood cultures were drawn. Plan would be to admit the patient for further treatment. Case is discussed with Dr. Lozada for admission. Diagnosis Primary Impression: Acute renal injury due to hypovolemia Additional Impressions: Sepsis UTI (urinary tract infection) Admitting Information Admitting Physician Requests: Admit Molly Shields MD January 22, 2018 08:17
[2018-01-22 08:40] LABS: AUTOMATED NEUTROPHIL # 7.6 TH/MM3 (1.8-7.7); BASOPHIL # 0.1 TH/MM3 (0-0.2); BASOPHIL % 0.7 % (0.0-2.0); EOSINOPHIL # 0.3 TH/MM3 (0-0.4); EOSINOPHIL % 2.2 % (0.0-4.0); HEMATOCRIT 32.3 % (35.0-46.0); HEMOGLOBIN 10.7 GM/DL (11.6-15.3); LYMPH % 22.2 % (9.0-44.0); LYMPHOCYTE # 2.5 TH/MM3 (1.0-4.8); MEAN CELL VOLUME 90.3 FL (80.0-100.0); MEAN CORPUSCULAR HEMOGLOBIN 29.8 PG (27.0-34.0); MEAN PLATELET VOLUME 9.2 FL (7.0-11.0); MONO % 7.6 % (0.0-8.0); MONOCYTE # 0.9 TH/MM3 (0-0.9); NEUT % 67.3 % (16.0-70.0); PLATELET COUNT 214 TH/MM3 (150-450); RED BLOOD COUNT 3.58 MIL/MM3 (4.00-5.30); WHITE BLOOD COUNT 11.4 TH/MM3 (4.0-11.0)
[2018-01-22 08:50] LABS: INTERNATIONAL NORMALIZED RATIO 1.2 RATIO; PROTHROMBIN TIME - PATIENT 12.5 SEC (9.8-11.6)
[2018-01-22 09:00] LABS: ALBUMIN 3.4 GM/DL (3.4-5.0); AST (GOT) 17 U/L (15-37); BICARBONATE 23.3 MEQ/L (21.0-32.0); BLOOD UREA NITROGEN 36 MG/DL (7-18); CHLORIDE 107 MEQ/L (98-107); CREATININE 2.66 MG/DL (0.50-1.00); GLOMERULAR FILTRATION RATE 17 ML/MIN (>89); GLUCOSE,RANDOM 112 MG/DL (74-106); MAGNESIUM 1.8 MG/DL (1.5-2.5); SODIUM (NA) 145 MEQ/L (136-145)
[2018-01-22 09:01] LABS: ALT (GPT) 20 U/L (10-53)
[2018-01-22 09:05] LABS: ALKALINE PHOSPHATASE 73 U/L (45-117); TOTAL BILIRUBIN ADULT 0.4 MG/DL (0.2-1.0); TOTAL PROTEIN 6.2 GM/DL (6.4-8.2); TROPONIN I 0.04 NG/ML (0.02-0.05)
--- NOTE | 2018-01-22 09:06 | RADRPT ---
EXAM DATE: 01/22/2018 8:54 AM EDT AGE/SEX: 77 years / Female INDICATIONS: Heart Palpitations CLINICAL DATA: This is the patient's initial encounter. Patient reports that signs and symptoms have been present for 1 day and indicates a pain score of 4/10. MEDICAL/SURGICAL HISTORY: Cardiovascular disease. Pacemaker. COMPARISON: [facility] [place]ST SINGLE AP, 03/27/2017. . FINDINGS: A single AP view of the chest demonstrates the lungs to be symmetrically aerated without evidence of mass, infiltrate or effusion. Stable mild cardiomegaly with single lead pacing device. Pulmonary vasc ulature appears normal in caliber. Osseous structures are intact. CONCLUSION: Stable mild cardiomegaly without evidence of congestive heart failure. No evidence of acute abnormali ty. Electronically signed by: Mela Elias MD 01/22/2018 9:05 AM EDT
[2018-01-22 09:54] LABS: BILIRUBIN, URINE NEG (NEG); BLOOD, URINE NEG (NEG); GLUCOSE,URINE NEG (NEG); HYALINE CAST, URINE 9 /lpf (RARE); KETONE, URINE NEG (NEG); MUCUS URINE FEW /lpf (OCC); NITRITE,URINE NEG (NEG); SQUAMOUS EPITHELIAL CELL URINE <1 /hpf (0-5); URIC ACID CRYSTALS, URINE RARE /hpf; URINE COLOR YELLOW (YELLW/STRAW); URINE LEUKOCYTE ESTERASE LARGE (NEG)
--- NOTE | 2018-01-22 10:24 | RADRPT ---
EXAM DATE: 01/22/2018 10:19 AM EDT AGE/SEX: 77 years / Female INDICATIONS: General weakness, dizzy. CLINICAL DATA: This is the patient's initial encounter. Patient reports that signs and symptoms have been present for 1 day and indicates a pain score of 0/10. MEDICAL/SURGICAL HISTORY: Cerebrovascular disease. Cardiovascular disease. Hypertension. diabeti c. None. RADIATION DOSE: 56.35 CTDI (mGy) COMPARISON: No prior [facility] exams available for comparison. TECHNIQUE: CT of the head without contrast. Using automated exposure control and adjustment of the mA and/or kV according to patient size, radiation dose was kept as low as reasonably achievable to ob tain optimal diagnostic quality images. FINDINGS: Chronic appearing ischemic changes are noted. There is periventricular hypodensity characteristic of microvascular ischemic change. Small lacunar infarcts are identified in both basal ganglia. There are no characteristic findings of acute infarct, hemorrhage, mass or edema. Mild generalized enlargement of the CSF spaces is noted. CONCLUSION: 1. Chronic ischemic white matter disease and small old basal ganglionic lacunar infarcts. 2. No evidence of acute infarct, hemorrhage, mass or edema. Electronically signed by: John Guzmán MD 01/22/2018 10:23 AM EDT
[2018-01-22] MEDS ORDERED: PIPERACIL-TAZO 3.375 GM PREMIX 50 ML IV ONE (10:30)
[2018-01-22] MEDS ORDERED: SENNOSIDES 8.6 MG TAB PO PRN (10:45)
[2018-01-22] MEDS ORDERED: MAGNESIUM HYDROXIDE SUSP 30 ML CUP PO PRN (10:45)
[2018-01-22] MEDS ORDERED: BISACODYL 10 MG SUPP RECTAL PRN (10:45)
[2018-01-22] MEDS ORDERED: NALOXONE HCL 0.4 MG/ML AMP IV PUSH PRN (10:45)
[2018-01-22] MEDS ORDERED: SODIUM CHLORIDE 0.9% FLUSH 10 ML FLUSH IV FLUSH PRN (10:45)
[2018-01-22] MEDS ORDERED: LACTULOSE SYRUP 20 GM/30 ML CUP PO PRN (10:45)
[2018-01-22] MEDS: SODIUM CHLOR 0.45% 1000 ML INJ 1,000 ML IV SCH (11:21)
--- NOTE | 2018-01-22 11:23 | HHI.HP ---
[facility] Unknown Admission Diagnosis UTI/acute kidney injury/sepsis/hypotension Diagnoses: Travel History International Travel<30 Days: No Contact w/Intl Traveler <30 Da: No Traveled to Known Affected Are: No History of Present Illness 77-year-old female with a history of hypertension, CHF, atrial fibrillation status post pacemaker, who presents having fallen this morning. She says she woke up, took her blood pressure medications, felt nauseous, vomited nonbloody emesis, then wound up on the floor. She is not sure how she fell, however ended up on the ground with apparently no injuries, was able to call EMS and crawl to unlock the front door. She denies any loss of bowel or bladder function. She denies any lightheadedness. She does say that since her has on October 28 of this year, she has not been eating or drinking very much, and her neighbors tell her she is losing weight; she also reports diarrhea, consisting of 2 loose bowel movements per day since her . She says she is not eating or drinking because she feels depressed. Review of Systems Except as stated in HPI: all other systems reviewed are Neg Past Family Social History Past Medical History Hypertension CHF Atrial fibrillation status post pacemaker Hyperlipidemia Diabetes mellitus History of CVA with chronic left-sided weakness Past Surgical History Pacemaker replacement Reported Medications Reported Meds & Active Scripts Active Klor-Con 10 (Potassium Chloride) 10 Meq Tab 10 Meq PO BID 30 Days Reported Tiazac (Diltiazem ER 24 HR) 120 Mg Caper 120 Mg PO DAILY Metformin (Metformin HCl) 500 Mg Tab 500 Mg PO BIDPC With meals Furosemide 20 Mg Tab 20 Mg PO DAILY Fish Oil + D3 (Fish Oil-Cholecalciferol) 1,200-1,000 Mg-Unit Cap 1 Cap PO DAILY Eliquis (Apixaban) 5 Mg Tab 5 Mg PO BID D3 Maximum Strength (Cholecalciferol) 5,000 Unit Cap 5,000 Units PO DAILY Clonidine (Clonidine HCl) 0.2 Mg Tab 0.2 Mg PO BID Atorvastatin (Atorvastatin Calcium) 40 Mg Tab 40 Mg PO HS Allergies: Coded Allergies: No Known Allergies (Verified Allergy, Unknown, 01/22/18) Family History Mother with cancer. Father secondary to heart disease Social History Non-smoker. Nondrinker. Denies illicit drugs. Physical Exam Vital Signs Vital Signs Date Time Temp Pulse Resp B/P (MAP) Pulse Ox O2 Delivery O2 Flow Rate FiO2 01/22/18 10:32 88/55 (66) 01/22/18 09:27 86/54 (65) 01/22/18 08:17 16 96 Room Air 01/22/18 07:40 97.5 66 14 87/51 (63) 97 Room Air Physical Exam GENERAL: This is a well-nourished, well-developed patient, in no apparent distress. Alert and oriented 3 SKIN: No rashes, ecchymoses or lesions. Cool and dry. HEAD: Atraumatic. Normocephalic. No temporal or scalp tenderness. EYES: Pupils equal round and reactive. Extraocular motions intact. No scleral icterus. No injection or drainage. ENT: Nose without bleeding, purulent drainage or septal hematoma. Throat without erythema, tonsillar hypertrophy or exudate. Uvula midline. Airway patent. NECK: Trachea midline. No JVD or lymphadenopathy. Supple, nontender, no meningeal signs. CARDIOVASCULAR: Regular rate and rhythm without murmurs, gallops, or rubs. RESPIRATORY: Clear to auscultation. Breath sounds equal bilaterally. No wheezes , rales, or rhonchi. GASTROINTESTINAL: Abdomen soft, non-tender, nondistended. No hepato-splenomegaly , or palpable masses. No guarding. MUSCULOSKELETAL: Extremities without clubbing, cyanosis, or edema. No joint tenderness, effusion, or edema noted. No calf tenderness. Negative Homans sign bilaterally. NEUROLOGICAL: Awake and alert. Cranial nerves II through XII intact. Motor and sensory grossly within normal limits. Patient has 4-5 strength on the left, 5 out of 5 on the right. Normal speech. Laboratory Laboratory Tests Test 01/22/18 08:15 01/22/18 09:36 01/22/18 10:35 White Blood Count 11.4 Red Blood Count 3.58 Hemoglobin 10.7 Hematocrit 32.3 Mean Corpuscular Volume 90.3 Mean Corpuscular Hemoglobin 29.8 Mean Corpuscular Hemoglobin Concent 33.0 Red Cell Distribution Width 16.0 Platelet Count 214 Mean Platelet Volume 9.2 Neutrophils (%) (Auto) 67.3 Lymphocytes (%) (Auto) 22.2 Monocytes (%) (Auto) 7.6 Eosinophils (%) (Auto) 2.2 Basophils (%) (Auto) 0.7 Neutrophils # (Auto) 7.6 Lymphocytes # (Auto) 2.5 Monocytes # (Auto) 0.9 Eosinophils # (Auto) 0.3 Basophils # (Auto) 0.1 CBC Comment DIFF FINAL Differential Comment Prothrombin Time 12.5 Prothromb Time International Ratio 1.2 Activated Partial Thromboplast Time 29.9 Blood Urea Nitrogen 36 Creatinine 2.66 Random Glucose 112 Total Protein 6.2 Albumin 3.4 Calcium Level 10.0 Magnesium Level 1.8 Alkaline Phosphatase 73 Aspartate Amino Transf (AST/SGOT) 17 Alanine Aminotransferase (ALT/SGPT) 20 Total Bilirubin 0.4 Sodium Level 145 Potassium Level 4.3 Chloride Level 107 Carbon Dioxide Level 23.3 Anion Gap 15 Estimat Glomerular Filtration Rate 17 Total Creatine Kinase 62 Troponin I 0.04 Urine Color YELLOW Urine Turbidity CLEAR Urine pH 5.0 Urine Specific [place] 1.008 Urine Protein NEG Urine Glucose (UA) NEG Urine Ketones NEG Urine Occult Blood NEG Urine Nitrite NEG Urine Bilirubin NEG Urine Urobilinogen LESS THAN 2.0 Urine Leukocyte Esterase LARGE Urine RBC 1 Urine WBC 15 Urine Squamous Epithelial Cells <1 Urine Uric Acid Crystals RARE Urine Hyaline Casts 9 Urine Mucus FEW Microscopic Urinalysis Comment CULTURE INDICATED Date/Time Source Procedure Growth Status 01/22/18 10:40 Blood Peripheral Aerobic Blood Culture Pending Received 01/22/18 10:40 Blood Peripheral Anaerobic Blood Culture Pending Received 01/22/18 09:36 Urine Clean Catch Urine Culture Pending Received Result Diagram: 01/22/1815 01/22/18814 Imaging Last Impressions Head CT 01/22/18812 Signed Impressions: CONCLUSION: No acute findings. Chest X-Ray 01/22/18812 Signed Impressions: CONCLUSION: No acute findings. Caprini VTE Risk Assessment Caprini VTE Risk Assessment: Mod/High Risk (score >= 2) Caprini Risk Assessment Model Point Value = 1 Point Value = 2 Point Value = 3 Point Value = 5 Age 41-60 Minor surgery BMI > 25 kg/m2 Swollen legs Varicose veins or History of unexplained or recurrent spontaneous Oral contraceptives or hormone replacement Sepsis (< 1 month) Serious lung disease, including pneumonia (< 1 month) Abnormal pulmonary function Acute myocardial infarction Congestive heart failure (< 1 month) History of inflammatory bowel disease Medical patient at bed rest Age 61-74 Arthroscopic surgery Major open surgery (> 45 min) Laparoscopic surgery (> 45 min) Malignancy Confined to bed (> 72 hours) Immobilizing plaster cast Central venous access Age >= 75 History of VTE Family history of VTE Factor V Leiden Prothrombin 14082I Lupus anticoagulant Anticardiolipin antibodies Elevated serum homocysteine Heparin-induced thrombocytopenia Other congenital or acquired thrombophilia Stroke (< 1 month) Elective arthroplasty Hip, pelvis, or leg fracture Acute spinal cord injury (< 1 month) Prophylaxis Regimen Total Risk Factor Score Risk Level Prophylaxis Regimen 0-1 Low Early ambulation 2 Moderate Order ONE of the following: *Sequential Compression Device (SCD) *Heparin 5000 units SQ BID 3-4 Higher Order ONE of the following medications: *Heparin 5000 units SQ TID *Enoxaparin/Lovenox 40 mg SQ daily (WT < 150 kg, CrCl > 30 mL/min) *Enoxaparin/Lovenox 30 mg SQ daily (WT < 150 kg, CrCl > 10-29 mL/min) *Enoxaparin/Lovenox 30 mg SQ BID (WT < 150 kg, CrCl > 30 mL/min) AND/OR *Sequential Compression Device (SCD) 5 or more Highest Order ONE of the following medications: *Heparin 5000 units SQ TID (Preferred with Epidurals) *Enoxaparin/Lovenox 40 mg SQ daily (WT < 150 kg, CrCl > 30 mL/min) *Enoxaparin/Lovenox 30 mg SQ daily (WT < 150 kg, CrCl > 10-29 mL/min) *Enoxaparin/Lovenox 30 mg SQ BID (WT < 150 kg, CrCl > 30 mL/min) AND *Sequential Compression Device (SCD) Assessment and Plan Assessment and Plan //Acute kidney injury on chronic kidney disease stage III -Creatinine 2.6 from baseline 1.3. -Likely secondary to dehydration, decreased p.o. intake secondary to adjustment disorder //Suspected syncope. -Consider further syncopal workup, however this is obviously secondary to hypotension. Pacemaker interrogation pending. //UTI. //Possible severe sepsis on admission = With leukocytosis 11.4, creatinine 2.6, diarrhea, possible gastroenteritis, possible UTI. Would not see tachycardia secondary to rate control. -Urine culture pending. Lactate pending. //Adjustment disorder Following loss of on October 28, 2017. With significant weight loss, decreased appetite. //Chronic diarrhea -since her . This could be irritable bowel syndrome exacerbated by depressive episode. Will check C. difficile to rule out. //History of hypertension //Hypotension on admission //History of CHF. -Likely secondary to dehydration. Hold blood pressure meds for now. Patient has pacer, if heart rate increases, will add metoprolol. //Chronic atrial fibrillation -Status post pacemaker. Plan to transition to metoprolol when heart rate increases. -We will check EKG to monitor any changes from baseline. -Have ordered pacemaker interrogation. = Continue Eliquis. CT with no signs of bleeding. Given past history of stroke , will continue anticoagulation for now. //Hyperlipidemia. Chronic. Check lipid profile. //Diabetes mellitus. Chronic. Check hemoglobin A1c. Insulin sliding scale. Continue diabetic diet Discussed Condition With Patient, nurse, ED physician. Physician Certification 2 Midnight Certification Type: Admission for Inpatient Services Order for Inpatient Services The services are ordered in accordance with Medicare regulations or non- Medicare payer requirements, as applicable. In the case of services not specified as inpatient-only, they are appropriately provided as inpatient services in accordance with the 2-midnight benchmark. Estimated LOS (days): 2 days is the estimated time the patient will need to remain in the hospital, assuming treatment plan goals are met and no additional complications. Post-Hospital Plan: Not yet determined Kranthi Lozada MD January 22, 2018 11:22
[2018-01-22 11:38] LABS: LACTIC ACID SEPSIS PROTOCOL 2.1 mmol/L (0.4-2.0)
[2018-01-22] MEDS: INSULIN ASPART SUPPLEMENTAL SCALE SQ SCH ×3 (12:00→20:41)
[2018-01-22] MEDS ORDERED: THIAMINE HCL 100 MG TAB PO ONE (13:00)
--- NOTE | 2018-01-22 13:35 | MB ---
cc: Tao Monahan MD DATE: 01/22/2018 REASON FOR CONSULTATION: Bradycardia, hypertension. HISTORY OF PRESENT ILLNESS: The patient is a 77-year-old white female, followed in our office by Dr. Corbin Orosco, with history of chronic atrial fibrillation, pacemaker implant, CVA and hyperlipidemia, who presented to the hospital mainly with complaints of generalized weakness and fatigue. Ever since her about a month ago, she has had fair to poor oral intake and overall general weakness. She was found to be hypotensive to a mild degree here in the emergency department. She denies chest pain, shortness of breath, syncope, near syncope, palpitations, paroxysmal nocturnal dyspnea. Occasionally, she experiences minimal ankle edema. Recently she has also noted somewhat loose stools without melena or bright red blood per rectum. She denies fevers or chills. PAST MEDICAL HISTORY: 1. Chronic atrial fibrillation. 2. Cerebrovascular accident approximately 2010. 3. Diabetes. 4. Hyperlipidemia. 5. History of Biotronik pacemaker implant. CARDIAC MEDICATIONS AT HOME: 1. Diltiazem ER 120 mg daily. 2. Furosemide 20 mg daily. 3. Eliquis 5 mg b.i.d. 4. Clonidine 0.2 mg b.i.d. 5. Atorvastatin 40 mg at bedtime. 6. Klor-Con 10 mEq b.i.d. ALLERGIES: NO KNOWN DRUG ALLERGIES. FAMILY HISTORY: Noncontributory. SOCIAL HISTORY: The patient has never smoked cigarettes. She occasionally drinks alcohol. REVIEW OF SYSTEMS: As in the history of present illness, otherwise negative or noncontributory. She also denies headache, unilateral weakness or numbness, melena, dyspepsia. PHYSICAL EXAMINATION: VITAL SIGNS: Her blood pressure 94/55 with a pulse of 60, respirations 15. GENERAL: She is a well-developed, well-nourished white female in no acute distress. NECK: Jugular venous pressure is normal. Carotid pulses are 2+ bilaterally and without bruits. CHEST: Examination of the chest reveals clear lung stephens. CARDIAC: She has q regular rate and rhythm without S3 or murmur. ABDOMEN: She has a soft, nontender abdomen. Bowel sounds are present. There is no definite hepatosplenomegaly. EXTREMITIES: Reveals no clubbing, cyanosis or edema. LABORATORY DATA: Includes WBC 11.4, hemoglobin 10.7, platelets 214. Potassium 4.3, BUN 36, creatinine 2.66. CK 62. Troponin 0.04. EKG shows a ventricular paced rhythm with underlying atrial fibrillation. IMPRESSION: Mild hypotension in this 77-year-old white female with a history of chronic atrial fibrillation, pacemaker implant, diabetes, hyperlipidemia, cerebrovascular accident. At this time, she is normotensive. Overall, I doubt the etiology of her hypotension is cardiac in origin. She has no evidence for pacemaker malfunction. Recent transmission of her pacemaker indicates stable, good pacing parameters. Her hypotension may be due to infection, possibly dehydration. Her oral intake has been fair to poor over the past few weeks since her . There is no definite evidence for congestive heart failure or acute coronary syndrome. RECOMMENDATIONS: 1. Hold her antihypertensive medications until her blood pressures improve. 2. Would consider holding her Eliquis until her renal function improves. If she continues to have persistent renal insufficiency, I would change her anticoagulation therapy to warfarin or reduce dosing of Eliquis. 3. Will followup as needed. Tao Monahan MD GHR/DL , 01:14 PM , 01:33 PM MTDD
--- NOTE | 2018-01-22 14:00 | EKG ---
Date Performed: 01/22/2018 Time Performed: 07:45:00 PTAGE: 77 years EKG: ELECTRONIC VENTRICULAR PACEMAKER ABNORMAL RHYTHM ECG Compared to prior electrocardiogram, V entricular demand pacemaker is present. I cannot compare underlying rhythm. PREVIOUS TRACING : 03/27/2017 12.41 DOCTOR: Soto Echeverria Interpretating Date/Time 01/22/2018 13:58:14
[2018-01-22 17:16] LABS: HEMOGLOBIN A1C 6.4 % (4.3-6.0)
[2018-01-22] MEDS: SODIUM CHLORIDE 0.9% FLUSH 10 ML FLUSH IV FLUSH SCH (20:41)
[2018-01-22] MEDS: PIPERACIL-TAZO 2.25 GM PREMIX 50 ML IV SCH (20:41)
[2018-01-22] MEDS: APIXABAN 2.5 MG TABLET PO SCH (20:41)
[2018-01-22] MEDS ORDERED: APIXABAN 5 MG TABLET PO SCH (21:00)
[2018-01-23] VITALS: BP 112/68; PULSE 60; PULSE 72; RESP 20; TEMP 98.5; O2SAT 96
[2018-01-23 04:00] VITALS: BP 114/63; PULSE 65; RESP 20; TEMP 98.2; O2SAT 96
[2018-01-23] MEDS: PIPERACIL-TAZO 2.25 GM PREMIX 50 ML IV SCH ×2 (04:11→11:29)
[2018-01-23] MEDS: INSULIN ASPART SUPPLEMENTAL SCALE SQ SCH ×4 (07:42→21:00)
[2018-01-23] MEDS: SODIUM CHLORIDE 0.9% FLUSH 10 ML FLUSH IV FLUSH SCH ×2 (07:43→21:00)
[2018-01-23] MEDS: APIXABAN 2.5 MG TABLET PO SCH ×2 (07:44→21:49)
[2018-01-23 08:00] VITALS: BP 125/58; PULSE 61; RESP 18; TEMP 97.6; O2SAT 94
[2018-01-23 08:45] LABS: ALBUMIN 2.8 GM/DL (3.4-5.0); ALT (GPT) 14 U/L (10-53); AST (GOT) 13 U/L (15-37); BICARBONATE 26.5 MEQ/L (21.0-32.0); BLOOD UREA NITROGEN 33 MG/DL (7-18); CALCIUM 9.1 MG/DL (8.5-10.1); CHLORIDE 109 MEQ/L (98-107); CHOLESTEROL 108 MG/DL (120-200); CREATININE 2.56 MG/DL (0.50-1.00); GLOMERULAR FILTRATION RATE 18 ML/MIN (>89); GLUCOSE,RANDOM 100 MG/DL (74-106); SODIUM (NA) 145 MEQ/L (136-145)
[2018-01-23 08:48] LABS: ALKALINE PHOSPHATASE 67 U/L (45-117); HDL CHOLESTEROL 51.4 MG/DL (40.0-60.0); LDL CHOLESTEROL 43 MG/DL (0-99); TOTAL BILIRUBIN ADULT 0.5 MG/DL (0.2-1.0); TOTAL PROTEIN 5.4 GM/DL (6.4-8.2); TRIGLYCERIDES 69 MG/DL (42-150)
--- NOTE | 2018-01-23 10:24 | PD.PSY.CON ---
Provisional Diagnosis Admission Date January 22, 2018 at 10:41 [place] I. Adjustment disorder with depressed mood [place] II. Deferred [place] III. CHF, atrial fibrillation, hypertension History of Present Illness Service Psychiatry Consult Requested By Medical team Reason for Consult Adjustment disorder with depressed mood Primary Care Physician Unknown HPI The patient 77-year-old woman, domiciled in [facility] in [place], , mother of 4 kids, supported by Social Security, without no previous psychiatric history, no previous suicide attempts, no previous psychiatric hospitalizations, with a medical history of hypertension, CHF, atrial fibrillation status post pacemaker, who presents having fallen yesterday morning. She says she woke up, took her blood pressure medications, felt nauseous, vomited nonbloody emesis, then wound up on the floor. She is not sure how she fell, however ended up on the ground with apparently no injuries, was able to call EMS and crawl to unlock the front door. She was admitted due to acute kidney injury on chronic kidney disease stage III. Creatinine 2.6 from baseline 1.3. Likely secondary to dehydration, decreased p.o. intake secondary to adjustment disorder. UTI. Possible severe sepsis on admission. With leukocytosis 11.4, creatinine 2.6, diarrhea, possible gastroenteritis, possible UTI. Would not see tachycardia secondary to rate control. The patient was consulted to psychiatry due to symptoms of depression. EMR was reviewed. Case discussed with nurse in charge. On psychiatric evaluation I find the patient calm, cooperative and pleasant. The patient is smiling and eating her breakfast. She reports that she feels much better today. She was able to tell me that the reason she is in the hospital is because she was falling. She also reports that she has been feeling a little bit down every day, "not depressed, but frequently sat, with no appetite and also difficulty sleeping at night sometimes". She denies hopelessness, helplessness, worthlessness, she denies anhedonia, denies suicidal enemas ideation, she denies visual and auditory hallucinations. Patient denies anxiety at the moment. She is logical, coherent and relevant. Oriented 3, no attention deficit, no fluctuation of consciousness. She denies the use of illegal drugs or alcohol. Review of Systems Constitutional: DENIES: Diaphoretic episodes, Fatigue, Fever, Weight gain, Weight loss, Chills, Dizziness, Change in appetite, Night Sweats Endocrine: DENIES: Abnorml menstrual pattern, Heat/cold intolerance, Polydipsia , Polyuria, Polyphagia Eyes: DENIES: Blurred vision, Diplopia, Eye inflammation, Eye pain, Vision loss , Photosensitivity, Double Vision Ears, nose, mouth, throat: DENIES: Tinnitus, Hearing loss, Vertigo, Nasal discharge, Oral lesions, Throat pain, Hoarseness, Ear Pain, Running Nose, Epistaxis, Sinus Pain, Toothache, Odynophagia Respiratory: DENIES: Apneas, Cough, Snoring, Wheezing, Hemoptysis, Sputum production, Shortness of breath Cardiovascular: DENIES: Chest pain, Palpitations, Syncope, Dyspnea on Exertion , PND, Lower Extremity Edema, Orthopnea, Claudication Gastrointestinal: DENIES: Abdominal pain, Black stools, Bloody stools, Constipation, Diarrhea, Nausea, Vomiting, Difficulty Swallowing, Anorexia Genitourinary: DENIES: Abnormal vaginal bleeding, Dysmenorrhea, Dyspareunia, Sexual dysfunction, Urinary frequency, Urinary incontinence, Urgency, Hematuria , Dysuria, Nocturia, Vaginal discharge Musculoskeletal: DENIES: Joint pain, Muscle aches, Stiffness, Joint Swelling, Back pain, Neck pain Integumentary: DENIES: Abnormal pigmentation, Pruritus, Rash, Nail changes, Breast masses, Breast skin changes, Nipple discharge Hematologic/lymphatic: DENIES: Bruising, Lymphadenopathy Immunologic/allergic: DENIES: Eczema, Urticaria Neurologic: DENIES: Abnormal gait, Headache, Localized weakness, Paresthesias, Seizures, Speech Problems, Tremor, Poor Balance Psychiatric: COMPLAINS OF: Depression, DENIES: Anxiety, Confusion, Mood changes , Hallucinations, Agitation, Suicidal Ideation, Homicidal Ideation, Delusions Past Family Social History Coded Allergies: No Known Allergies (Verified Allergy, Unknown, 01/22/18) Active Scripts Potassium Chloride ER (Klor-Con 10) 10 Meq Tab, 10 MEQ PO BID for Electrolyte Replacement for 30 Days, TAB 11 Refills Prov:Tao Monahan MD 03/28/17 Reported Medications Diltiazem ER 24 HR (Tiazac) 120 Mg Caper, 120 MG PO DAILY, #30 CAP 0 Refills 03/27/17 Metformin (Metformin) 500 Mg Tab, 500 MG PO BIDPC for Blood Sugar Management, # 60 TAB 0 Refills With meals 03/27/17 Furosemide (Furosemide) 20 Mg Tab, 20 MG PO DAILY, #30 TAB 0 Refills 03/27/17 Fish Oil-Cholecalciferol (Fish Oil + D3) 1,200-1,000 Mg-Unit Cap, 1 CAP PO DAILY for Nutritional Supplement, #30 CAP 0 Refills 03/27/17 Apixaban (Eliquis) 5 Mg Tab, 5 MG PO BID for Blood Clot Prevention, #60 TAB 0 Refills 03/27/17 Cholecalciferol (D3 Maximum Strength) 5,000 Unit Cap, 5000 UNITS PO DAILY for Nutritional Supplement, #30 CAP 0 Refills 03/27/17 Clonidine (Clonidine) 0.2 Mg Tab, 0.2 MG PO BID for Blood Pressure Management, # 60 TAB 0 Refills 03/27/17 Atorvastatin (Atorvastatin) 40 Mg Tab, 40 MG PO HS for Cholesterol Management, # 30 TAB 0 Refills 03/27/17 Current Medications Medications (Trade) Dose Ordered Sig/Robyn Route Start Time Stop Time Status Last Admin Sodium Chloride 1,000 ml @ 75 mls/hr [id number] IV 01/22/18 10:40 01/23/18 00:00 (NS Flush) 2 ml UNSCH PRN IV FLUSH 01/22/18 10:45 (NS Flush) 2 ml BID IV FLUSH 01/22/18 21:00 (Narcan Inj) 0.4 mg UNSCH PRN IV PUSH 01/22/18 10:45 (Milk Of Magnesia Liq) 30 ml Q12H PRN PO 01/22/18 10:45 (Senokot) 17.2 mg Q12H PRN PO 01/22/18 10:45 (Dulcolax Supp) 10 mg DAILY PRN RECTAL 01/22/18 10:45 (Lactulose Liq) 30 ml DAILY PRN PO 01/22/18 10:45 Piperacillin Sod/ Tazobactam Sod 50 ml @ 100 mls/hr Q8H IV 01/22/18 20:00 01/23/18 04:11 (NovoLOG SUPPLEMENTAL SCALE) 1 ACHS SLIDING SCALE SQ 01/22/18 12:00 (Eliquis) 2.5 mg BID PO 01/22/18 21:00 01/23/18 07:44 Family Psych History No family psychiatric history Social History The patient was born and raised in [place], she lives at [facility] in [place], she is , mother of 4 kids, supported by Social Security Patient's Strengths (min. 2) Verbal communication, no psychiatric history Physical Exam No tremors, no EPS, no psychomotor retardation or agitation Vital Signs Vital Signs Date Time Temp Pulse Resp B/P (MAP) Pulse Ox O2 Delivery O2 Flow Rate FiO2 01/23/18 08:00 97.6 61 18 125/58 (80) 94 01/22/18 08:17 Room Air I/O 01/23/18 01/23/18 01/23/18 07:59 15:59 23:59 Intake Total 240 ml Balance 240 ml Lab Results Test 01/22/18 10:35 01/22/18 13:51 01/22/18 14:35 01/23/18 07:11 Lactic Acid Level 2.1 mmol/L 2.0 mmol/L Hemoglobin A1c 6.4 % Total Creatine Kinase 68 U/L Blood Urea Nitrogen 33 MG/DL Creatinine 2.56 MG/DL Random Glucose 100 MG/DL Total Protein 5.4 GM/DL Albumin 2.8 GM/DL Calcium Level 9.1 MG/DL Alkaline Phosphatase 67 U/L Aspartate Amino Transf (AST/SGOT) 13 U/L Alanine Aminotransferase (ALT/SGPT) 14 U/L Total Bilirubin 0.5 MG/DL Sodium Level 145 MEQ/L Potassium Level 4.1 MEQ/L Chloride Level 109 MEQ/L Carbon Dioxide Level 26.5 MEQ/L Anion Gap 10 MEQ/L Estimat Glomerular Filtration Rate 18 ML/MIN Triglycerides Level 69 MG/DL Cholesterol Level 108 MG/DL LDL Cholesterol 43 MG/DL HDL Cholesterol 51.4 MG/DL Cholesterol/HDL Ratio 2.10 RATIO Date/Time Source Procedure Growth Status 01/22/18 10:40 Blood Peripheral Aerobic Blood Culture Pending Received 01/22/18 10:40 Blood Peripheral Anaerobic Blood Culture Pending Received 01/22/18 09:36 Urine Clean Catch Urine Culture Pending Received Mental Status Examination Appearance: Appropriate Consciousness: Alert Orientation: x4 Motor Activity: Normal gait Speech: Unremarkable Language: Adequate Fund of Knowledge: Adequate Attention and Concentration: Adequate Memory: Unremarkable Mood: Appropriate Affect: Appropriate Thought Process & Associations: Intact Thought Content: Appropriate Hallucination Type: None Delusion Type: None Suicidal Ideation: No Suicidal Plan: No Suicidal Intention: No Homicidal Ideation: No Homicidal Plan: No Homicidal Intention: No Insight: Adequate Judgment: Adequate Assessment & Plan Problem List: (1) Adjustment disorder with depressed mood ICD Codes: F43.21 - Adjustment disorder with depressed mood Assessment & Plan: On psychiatric evaluation today the patient is calm, cooperative and pleasant. The patient reports that in the last days she has been feeling down, frequently sad, tearful, with difficulty sleeping at night and also poor appetite. Patient reports that these emotions of feeling of depression have been related to his decompensation medical conditions. Patient is afraid to be depressed, but she denies hopelessness, denies helplessness, she denies worthlessness, anhedonia, she denies suicidal and homicidal ideation , she denies visual and auditory hallucinations. Patient is logical, coherent and relevant. Oriented 3, no gross cognitive impairment present. I would recommend to start the patient in Remeron 15 mg at bedtime to help with depression, insomnia, appetite. No admission is required at this moment. Brief supportive psychotherapy provided, psychoeducation provided. Consult appreciated. Assessment & Plan Estimated LOS: Chris Arguello MD January 23, 2018 10:24
[2018-01-23] MEDS: SODIUM CHLOR 0.45% 1000 ML INJ 1,000 ML IV SCH ×2 (11:30)
[2018-01-23 12:00] VITALS: BP 146/84; PULSE 68; RESP 18; TEMP 98.6; O2SAT 97
--- NOTE | 2018-01-23 12:06 | HHI.PR ---
Subjective Remarks Nursing denies any deterioration since last night. Patient herself says she feels better today since admission. Denies any palpitations shortness of breath or further episodes of lightheadedness/syncope. Denies any chest pain. Objective Vital Signs Date Time Temp Pulse Resp B/P (MAP) Pulse Ox O2 Delivery O2 Flow Rate FiO2 01/23/18 08:00 97.6 61 18 125/58 (80) 94 01/23/18 04:00 98.2 65 20 114/63 (80) 96 01/23/18 00:00 98.5 72 20 112/68 (83) 96 01/23/18 00:00 60 01/22/18 20:00 98.0 60 20 117/73 (88) 97 01/22/18 20:00 68 01/22/18 16:00 97.6 64 17 104/61 (75) 97 01/22/18 13:00 97.3 73 18 104/63 (77) 100 01/22/18 12:25 I/O 01/22/18 01/22/18 01/22/18 01/23/18 01/23/18 01/23/18 07:00 15:00 23:00 07:00 15:00 23:00 Intake Total 1050 ml 530 ml 1240 ml Balance 1050 ml 530 ml 1240 ml Intake Oral 480 ml 240 ml IV Total 1050 ml 50 ml 1000 ml # Voids 3 2 # Bowel Movements 0 1 Result Diagram: 01/22/18 0815 01/23/18 0711 Objective Remarks Audible S3 gallop, otherwise no murmurs heard, heart sounds indicate irregular rhythm but a regular rate Lungs are clear bilaterally, no JVD, negative hepatojugular reflex, very mild lower extremity edema bilaterally A/P Assessment and Plan //Acute kidney injury on chronic kidney disease stage III -Continue IV fluids, needs further improvement for discharge -Likely secondary to dehydration, decreased p.o. intake secondary to adjustment disorder //Suspected syncope. -No further recurrence with no further workup needed. Cardiology has signed off. echo results pending //UTI. -Afebrile, will de-escalate from Zosyn down to Rocephin. Follow final urine culture results in a.m. -Follow-up blood cultures obtained since admission //Adjustment disorder Following loss of on October 28, 2017. With significant weight loss, decreased appetite. -Appreciate psychiatry recommendations to start Remeron //Chronic diarrhea -possible irritable bowel syndrome exacerbated by depressive episode. Unlikely C. difficile as the patient's stool is formed now. HTN -May resume home BP meds when BP normalizes/rises. Patient has pacer, if heart rate increases, will add metoprolol. //Chronic atrial fibrillation -Status post pacemaker. = Continue low dose Eliquis per cards. CT with no signs of bleeding. Given past history of stroke, will continue anticoagulation for now. -resume home cardizem for now //Hyperlipidemia. Chronic. //Diabetes mellitus. Chronic. Insulin sliding scale. Continue diabetic diet Emmett Call MD January 23, 2018 12:06
[2018-01-23] MEDS: DILTIAZEM-CD 120 MG CAP ER PO SCH (12:57)
[2018-01-23] MEDS: SODIUM CHLOR 0.9% 1000 ML INJ 1,000 ML IV SCH ×2 (12:58→21:50)
[2018-01-23 16:00] VITALS: BP 153/84; PULSE 93; RESP 18; TEMP 98.1; O2SAT 95
--- NOTE | 2018-01-23 17:11 | ECHRPT ---
Indication: HEART FAILURE CONCLUSIONS The left ventricular systolic function is normal with an estimated ejection fraction in the range of 60-65%. Normal left ventricular size. Wall thickness is normal. No regional wall motion abnormalities are present. mild mitral valve regurgitation. Aortic valve sclerosis is present. [id number] aortic valve regurgitation. There is mild tricuspid valve regurgitation. The estimated pulmonary arterial pressure is 53 mmHg. The pulmonary valve is not well visualized. pacemaker wire in right ventricle BP: 94 / 55 HR: 66 Rhythm: Sinus Technical Quality:Good FINDINGS LEFT VENTRICLE The left ventricular systolic function is normal with an estimated ejection fraction in the range of 60-65%. Normal left ventricular size. Wall thickness is normal. No regional wall motion abnormalities are present. RIGHT VENTRICLE Normal right ventricular size and systolic function. LEFT ATRIUM The left atrial size is normal. RIGHT ATRIUM The right atrial size is normal. ATRIAL SEPTUM Normal atrial septal thickness without atrial level shunting by limited color doppler interrogation. AORTA The aortic root and proximal ascending aorta are normal in size on limited imaging. MITRAL VALVE Structurally normal mitral valve. Trace mitral valve regurgitation. AORTIC VALVE Trileaflet aortic valve. Aortic valve sclerosis is present. [id number] aortic valve regurgitation. TRICUSPID VALVE Structurally normal tricuspid valve. There is mild tricuspid valve regurgitation. The estimated pulmonary arterial pressure is 53 mmHg. PULMONARY VALVE The pulmonary valve is not well visualized. VESSELS The inferior vena cava is normal in size. PERICARDIUM No pericardial effusion. Mark Rizvi MD, FACC, [facility] (Electronically Signed) Final Date:23 Jan 2018 17:09
[2018-01-23] MEDS: cefTRIAXone INJ 1,000 MG in SODIUM CHLORIDE 0.9% INJ 100 ML IV SCH (18:55)
[2018-01-23 20:00] VITALS: BP 168/90; PULSE 78; RESP 16; TEMP 98.5; O2SAT 92
[2018-01-23] MEDS: MIRTAZAPINE 15 MG TAB PO SCH (21:49)
[2018-01-23] MEDS: ATORVASTATIN 40 MG TAB PO SCH (21:49)
[2018-01-24] VITALS (7 sets, daily range): BP systolic 134–193; BP diastolic 69–95; PULSE 67–84; RESP 16–18; TEMP 97.5–100.6; O2SAT 91–93
[2018-01-24 07:59] LABS: BICARBONATE 25.8 MEQ/L (21.0-32.0); CALCIUM 9.4 MG/DL (8.5-10.1); CREATININE 2.25 MG/DL (0.50-1.00)
[2018-01-24] MEDS: INSULIN ASPART SUPPLEMENTAL SCALE SQ SCH ×4 (08:00→20:29)
[2018-01-24] MEDS: SODIUM CHLORIDE 0.9% FLUSH 10 ML FLUSH IV FLUSH SCH ×2 (08:54→20:30)
[2018-01-24] MEDS: DILTIAZEM-CD 120 MG CAP ER PO SCH (08:54)
[2018-01-24] MEDS: CHOLECALCIFEROL (VIT D3) 5000 UNIT CAP PO SCH (08:54)
[2018-01-24] MEDS: APIXABAN 2.5 MG TABLET PO SCH ×2 (08:54→20:26)
--- NOTE | 2018-01-24 13:47 | HHI.PR ---
Subjective Remarks Mrs. Lomeli is a 77-year-old female she is admitted with her Paul tract infection and acute renal injury. Her renal function improved slightly today. This is with IV hydration. Not yet stable for discharge. Objective Vital Signs Date Time Temp Pulse Resp B/P (MAP) Pulse Ox O2 Delivery O2 Flow Rate FiO2 01/24/18 12:00 98.5 82 17 158/93 (114) 92 01/24/18 08:00 98.6 67 17 176/81 (112) 91 01/24/18 04:00 98.8 69 18 134/69 (90) 93 01/24/18 00:48 84 01/24/18 00:00 97.5 78 16 165/95 (118) 92 01/23/18 20:00 98.5 78 16 168/90 (116) 92 01/23/18 16:00 98.1 93 18 153/84 (107) 95 I/O 01/23/18 01/23/18 01/23/18 01/24/18 01/24/18 01/24/18 07:00 15:00 23:00 07:00 15:00 23:00 Intake Total 1240 ml 1050 ml 880 ml 240 ml Output Total 1400 ml Balance 1240 ml 1050 ml 880 ml -1160 ml Intake Oral 240 ml 880 ml 240 ml IV Total 1000 ml 1050 ml Output Urine Total 1400 ml # Voids 2 4 # Bowel Movements 1 5 Result Diagram: 01/22/18 0815 01/24/18 0518 Objective Remarks GENERAL: NAD, A&Ox3 HEAD: Normocephalic. NECK: Supple, trachea midline. No lymphadenopathy. EYES: No scleral icterus. No injection or drainage. CARDIOVASCULAR: Regular rate and rhythm without murmurs, gallops, or rubs. RESPIRATORY: Breath sounds equal bilaterally. No accessory muscle use. GASTROINTESTINAL: Abdomen soft, non-tender, nondistended. MUSCULOSKELETAL: No cyanosis, or edema. SKIN: Warm and dry. NEURO: No focal neurological deficitis. A/P Problem List: (1) Acute renal injury due to hypovolemia ICD Code: N17.9 - Acute kidney failure, unspecified; E86.1 - Hypovolemia Status: Acute (2) UTI (urinary tract infection) ICD Code: N39.0 - Urinary tract infection, site not specified Status: Acute (3) Sepsis ICD Code: A41.9 - Sepsis, unspecified organism Status: Acute Assessment and Plan 77-year-old female admitted secondary to acute renal injury related to urinary tract infection Acute kidney injury Baseline chronic kidney disease stage III Discontinue IV fluids Monitor for continued renal improvement despite IV fluid cessation Continue to monitor renal function Avoid nephrotoxins Urinary tract infection Rocephin Continue to follow cultures Syncope versus presyncope Negative workup Etiology likely related to urinary infection Adjustment disorder Acute grief reaction Following loss of on October 28, 2017. Psychiatry following Continue Remeron Chronic diarrhea Resolved Hypertension Continue baseline treatment Follow blood pressures Adjust treatments as needed Continue metoprolol Hyperlipidemia Continue present treatment Follow as an outpatient Diabetes mellitus type 2 Follow blood sugars Insulin sliding scale Diabetic diet Chronic atrial fibrillation Continue Eliquis Continue Cardizem Follow on telemetry DVT prophylaxis Ran Pro MD January 24, 2018 13:47
[2018-01-24] MEDS ORDERED: WALKER/ADULT/FO1 MIS (14:46)
--- NOTE | 2018-01-24 14:46 | HHI.FF ---
Face to Face Verification Diagnosis: (1) UTI (urinary tract infection) (2) Sepsis (3) Weak Physical Therapy Order: Evaluate and Treat, Improve ambulation, Strength and gait training I have seen patient Janessa Lomeli on 01/24/18. My clinical findings support the need for the requested home health care services because: Ltd mobility - disease progression Deconditioned w/ increased weakness Limited ability to care for self High risk of falls I certify that my clinical findings support that this patient is homebound because: Unsteady gait/balance Unsafe to leave home unassisted Unable to use public transportation Ran Murray MD January 24, 2018 14:46
[2018-01-24] MEDS: cefTRIAXone INJ 1,000 MG in SODIUM CHLORIDE 0.9% INJ 100 ML IV SCH (18:37)
[2018-01-24] MEDS ORDERED: ACETAMINOPHEN 500 MG CPLT PO PRN (20:15)
[2018-01-24] MEDS: ATORVASTATIN 40 MG TAB PO SCH (20:26)
[2018-01-24] MEDS: MIRTAZAPINE 15 MG TAB PO SCH (20:26)
[2018-01-24] MEDS: cloNIDine HCL 0.2 MG TAB PO SCH (20:26)
[2018-01-24] MEDS: POTASSIUM CHLORIDE 10 MEQ CONTROLLED RELEASE TAB PO SCH (20:27)
[2018-01-25] VITALS: BP 141/90; PULSE 79; RESP 18; TEMP 99.4; O2SAT 92
[2018-01-25 04:00] VITALS: BP 182/97; PULSE 87; RESP 18; TEMP 98.8; O2SAT 91
[2018-01-25 07:33] LABS: AUTOMATED NEUTROPHIL # 9.6 TH/MM3 (1.8-7.7); BASOPHIL # 0.1 TH/MM3 (0-0.2); BASOPHIL % 0.6 % (0.0-2.0); EOSINOPHIL # 0.1 TH/MM3 (0-0.4); EOSINOPHIL % 0.9 % (0.0-4.0); HEMOGLOBIN 10.7 GM/DL (11.6-15.3); LYMPH % 14.4 % (9.0-44.0); LYMPHOCYTE # 1.8 TH/MM3 (1.0-4.8); MEAN CELL VOLUME 89.4 FL (80.0-100.0); MEAN CORPUSCULAR HEMOGLOBIN 29.8 PG (27.0-34.0); MEAN CORPUSCULAR HGB CONC 33.3 % (32.0-36.0); MEAN PLATELET VOLUME 9.1 FL (7.0-11.0); MONO % 7.1 % (0.0-8.0); MONOCYTE # 0.9 TH/MM3 (0-0.9); PLATELET COUNT 174 TH/MM3 (150-450); RED BLOOD COUNT 3.59 MIL/MM3 (4.00-5.30); RED CELL DISTRIBUTION WIDTH 15.8 % (11.6-17.2); WHITE BLOOD COUNT 12.4 TH/MM3 (4.0-11.0)
[2018-01-25] MEDS: INSULIN ASPART SUPPLEMENTAL SCALE SQ SCH ×4 (07:35→20:56)
[2018-01-25] MEDS: FUROSEMIDE 20 MG TAB PO SCH (07:42)
[2018-01-25] MEDS: cloNIDine HCL 0.2 MG TAB PO SCH ×2 (07:42→20:38)
[2018-01-25] MEDS: APIXABAN 2.5 MG TABLET PO SCH ×2 (07:42→20:39)
[2018-01-25] MEDS: SODIUM CHLORIDE 0.9% FLUSH 10 ML FLUSH IV FLUSH SCH ×2 (07:42→20:47)
[2018-01-25] MEDS: DILTIAZEM-CD 120 MG CAP ER PO SCH (07:42)
[2018-01-25] MEDS: POTASSIUM CHLORIDE 10 MEQ CONTROLLED RELEASE TAB PO SCH ×2 (07:42→20:39)
[2018-01-25] MEDS: CHOLECALCIFEROL (VIT D3) 5000 UNIT CAP PO SCH (07:42)
[2018-01-25 08:00] VITALS: BP 149/99; PULSE 78; RESP 16; TEMP 98.6; O2SAT 92
[2018-01-25] MEDS ORDERED: cloNIDine HCL 0.1 MG TAB PO PRN (09:00)
[2018-01-25] MEDS ORDERED: BACT800T5 PO (11:59)
[2018-01-25] MEDS ORDERED: LACTTAB8 PO (11:59)
[2018-01-25 12:00] VITALS: BP 152/94; PULSE 79; RESP 18; TEMP 99; O2SAT 94
--- NOTE | 2018-01-25 12:01 | HHI.DS ---
Discharge Summary Admission Date January 22, 2018 at 10:41 Discharge Date: January 25, 2018 Admitting Diagnosis UTI/acute kidney injury/sepsis/hypotension (1) UTI (urinary tract infection) ICD Code: N39.0 - Urinary tract infection, site not specified Diagnosis: Principal Status: Acute (2) Sepsis ICD Code: A41.9 - Sepsis, unspecified organism Diagnosis: Principal Status: Acute (3) Weak ICD Code: R53.1 - Weakness Diagnosis: Principal (4) Adjustment disorder with depressed mood ICD Code: F43.21 - Adjustment disorder with depressed mood Diagnosis: Principal (5) Acute renal injury due to hypovolemia ICD Code: N17.9 - Acute kidney failure, unspecified; E86.1 - Hypovolemia Diagnosis: Principal Status: Acute Procedures None Brief History - From Admission 77-year-old female with a history of hypertension, CHF, atrial fibrillation status post pacemaker, who presents having fallen this morning. She says she woke up, took her blood pressure medications, felt nauseous, vomited nonbloody emesis, then wound up on the floor. She is not sure how she fell, however ended up on the ground with apparently no injuries, was able to call EMS and crawl to unlock the front door. She denies any loss of bowel or bladder function. She denies any lightheadedness. She does say that since her has on October 28 of this year, she has not been eating or drinking very much, and her neighbors tell her she is losing weight; she also reports diarrhea, consisting of 2 loose bowel movements per day since her . She says she is not eating or drinking because she feels depressed. CBC/BMP: 01/25/18 0634 01/24/18 0518 Significant Findings Laboratory Tests Test 01/22/18 13:51 01/22/18 14:35 01/23/18 07:11 01/23/18 16:00 Hemoglobin A1c 6.4 % (4.3-6.0) Blood Urea Nitrogen 33 MG/DL (7-18) Creatinine 2.56 MG/DL (0.50-1.00) Total Protein 5.4 GM/DL (6.4-8.2) Albumin 2.8 GM/DL (3.4-5.0) Aspartate Amino Transf (AST/SGOT) 13 U/L (15-37) Chloride Level 109 MEQ/L (98-107) Estimat Glomerular Filtration Rate 18 ML/MIN (>89) Cholesterol Level 108 MG/DL (120-200) Test 01/24/18 05:18 01/25/18 06:34 Blood Urea Nitrogen 26 MG/DL (7-18) Creatinine 2.25 MG/DL (0.50-1.00) Sodium Level 149 MEQ/L (136-145) Chloride Level 112 MEQ/L (98-107) Estimat Glomerular Filtration Rate 21 ML/MIN (>89) White Blood Count 12.4 TH/MM3 (4.0-11.0) Red Blood Count 3.59 MIL/MM3 (4.00-5.30) Hemoglobin 10.7 GM/DL (11.6-15.3) Hematocrit 32.0 % (35.0-46.0) Neutrophils (%) (Auto) 77.0 % (16.0-70.0) Neutrophils # (Auto) 9.6 TH/MM3 (1.8-7.7) Hospital Course Mrs. Lomeli is a 77-year-old female. She is admitted secondary to urinary tract infection with sepsis. Weakness is also part of her symptoms. With antibiotics she has had improvement in her UTI symptoms and she has no longer septic. She continues to have some weakness. She has been evaluated by physical therapy and they have recommended home with home health PT and walker. She lives alone but her daughter will be here tomorrow morning for discharge is in place for first thing tomorrow morning. She was discharged on her previous home treatments and additionally Bactrim and a probiotic. Medically clear and stable for discharge tomorrow morning. Pt Condition on Discharge: Stable Discharge Disposition: Disch w/ Home Health Serv Discharge Time: <= 30 minutes Discharge Instructions DIET: Follow Instructions for: As Tolerated, No Restrictions Activities you can perform: Regular-No Restrictions Follow up Referrals: PCP Follow-up - 2 Weeks New Medications: Lactobacillus Acidophilus (Lactobacillus Acidophilus) 1 Billion Cell Tab 1 TAB PO TIDAC for Nutritional Supplement, #30 TAB 0 Refills Sulfamethoxazole-Trimethoprim (Bactrim DS) 800-160 Mg Tab 1 TAB PO BID for Infection, #10 TAB 0 Refills Walker/Adult/Folding (Walker/Adult/Folding) 1 Mis Mis EA .XX DIRECTED, #1 0 Refills Continued Medications: Apixaban (Eliquis) 5 Mg Tab 5 MG PO BID for Blood Clot Prevention, #60 TAB 0 Refills Atorvastatin (Atorvastatin) 40 Mg Tab 40 MG PO HS for Cholesterol Management, #30 TAB 0 Refills Cholecalciferol (D3 Maximum Strength) 5,000 Unit Cap 5000 UNITS PO DAILY for Nutritional Supplement, #30 CAP 0 Refills Clonidine (Clonidine) 0.2 Mg Tab 0.2 MG PO BID for Blood Pressure Management, #60 TAB 0 Refills Diltiazem ER 24 HR (Tiazac) 120 Mg Caper 120 MG PO DAILY, #30 CAP 0 Refills Fish Oil-Cholecalciferol (Fish Oil + D3) 1,200-1,000 Mg-Unit Cap 1 CAP PO DAILY for Nutritional Supplement, #30 CAP 0 Refills Furosemide (Furosemide) 20 Mg Tab 20 MG PO DAILY, #30 TAB 0 Refills Metformin (Metformin) 500 Mg Tab 500 MG PO BIDPC for Blood Sugar Management, #60 TAB 0 Refills With meals Potassium Chloride ER (Klor-Con 10) 10 Meq Tab 10 MEQ PO BID for Electrolyte Replacement for 30 Days, TAB 11 Refills Ran Murray MD January 25, 2018 12:01
[2018-01-25 16:00] VITALS: BP 167/85; PULSE 79; RESP 16; TEMP 98; O2SAT 91
[2018-01-25] MEDS ORDERED: SULFAMETHOXAZOLE-TRIMETHOPRIM DS 800-160 MG TAB PO ONE (17:00)
[2018-01-25] MEDS: cefTRIAXone INJ 1,000 MG in SODIUM CHLORIDE 0.9% INJ 100 ML IV SCH (17:19)
[2018-01-25 20:00] VITALS: BP 168/86; PULSE 68; PULSE 89; RESP 17; TEMP 100.7; O2SAT 92
[2018-01-25] MEDS: ATORVASTATIN 40 MG TAB PO SCH (20:39)
[2018-01-25] MEDS: MIRTAZAPINE 15 MG TAB PO SCH (20:39)
[2018-01-26] VITALS: PULSE 72
[2018-01-26 00:07] VITALS: BP 137/85; PULSE 83; RESP 20; TEMP 99.5; O2SAT 92
[2018-01-26 04:00] VITALS: PULSE 81
[2018-01-26 04:32] VITALS: BP 170/89; PULSE 85; RESP 21; TEMP 97.8; O2SAT 92
[2018-01-26 06:31] LABS: BASOPHIL # 0.1 TH/MM3 (0-0.2); BASOPHIL % 0.6 % (0.0-2.0); EOSINOPHIL # 0.2 TH/MM3 (0-0.4); EOSINOPHIL % 1.5 % (0.0-4.0); HEMATOCRIT 28.2 % (35.0-46.0); HEMOGLOBIN 9.6 GM/DL (11.6-15.3); LYMPH % 11.7 % (9.0-44.0); LYMPHOCYTE # 1.2 TH/MM3 (1.0-4.8); MEAN CELL VOLUME 88.2 FL (80.0-100.0); MEAN CORPUSCULAR HEMOGLOBIN 30.1 PG (27.0-34.0); MEAN CORPUSCULAR HGB CONC 34.1 % (32.0-36.0); MEAN PLATELET VOLUME 8.9 FL (7.0-11.0); MONO % 7.8 % (0.0-8.0); MONOCYTE # 0.8 TH/MM3 (0-0.9); NEUT % 78.4 % (16.0-70.0); PLATELET COUNT 158 TH/MM3 (150-450); RED CELL DISTRIBUTION WIDTH 15.8 % (11.6-17.2); WHITE BLOOD COUNT 10.2 TH/MM3 (4.0-11.0)
[2018-01-26 06:50] LABS: ALBUMIN 2.6 GM/DL (3.4-5.0); ALT (GPT) 14 U/L (10-53); AST (GOT) 16 U/L (15-37); BICARBONATE 22.4 MEQ/L (21.0-32.0); BLOOD UREA NITROGEN 24 MG/DL (7-18); CHLORIDE 110 MEQ/L (98-107); CREATININE 1.82 MG/DL (0.50-1.00); GLOMERULAR FILTRATION RATE 27 ML/MIN (>89); GLUCOSE,RANDOM 93 MG/DL (74-106); SODIUM (NA) 143 MEQ/L (136-145)
[2018-01-26 06:53] LABS: ALKALINE PHOSPHATASE 57 U/L (45-117); TOTAL BILIRUBIN ADULT 0.8 MG/DL (0.2-1.0); TOTAL PROTEIN 5.5 GM/DL (6.4-8.2)
[2018-01-26] MEDS: INSULIN ASPART SUPPLEMENTAL SCALE SQ SCH (07:39)
[2018-01-26 08:00] VITALS: BP 143/87; PULSE 77; RESP 16; TEMP 99.6; O2SAT 98
[2018-01-26] MEDS: SODIUM CHLORIDE 0.9% FLUSH 10 ML FLUSH IV FLUSH SCH (09:00)
[2018-01-26] MEDS: cloNIDine HCL 0.2 MG TAB PO SCH (09:12)
[2018-01-26] MEDS: CHOLECALCIFEROL (VIT D3) 5000 UNIT CAP PO SCH (09:12)
[2018-01-26] MEDS: APIXABAN 2.5 MG TABLET PO SCH (09:12)
[2018-01-26] MEDS: FUROSEMIDE 20 MG TAB PO SCH (09:12)
[2018-01-26] MEDS: DILTIAZEM-CD 120 MG CAP ER PO SCH (09:12)
[2018-01-26] MEDS: POTASSIUM CHLORIDE 10 MEQ CONTROLLED RELEASE TAB PO SCH (09:12)
== END 2018-01-26 10:58 | disposition home health service (06) | DRG 872 ==
LOC: NEPE 07:26 → NEDA 10:41 → N07B 12:20
PROVIDERS: ADMIT Hospitalist; ATTEND Hospitalist
DX: A41.9 Sepsis, unspecified organism (principal); N17.9 Acute kidney failure, unspecified; I13.0 Hypertensive heart and chronic kidney disease with heart failure and stage 1 through stage 4 chronic kidney disease, or unspecified chronic kidney disease; E11.22 Type 2 diabetes mellitus with diabetic chronic kidney disease; I95.9 Hypotension, unspecified; I69.354 Hemiplegia and hemiparesis following cerebral infarction affecting left non-dominant side; N39.0 Urinary tract infection, site not specified; E86.0 Dehydration; I48.2 Chronic atrial fibrillation; E78.5 Hyperlipidemia, unspecified; K52.9 Noninfective gastroenteritis and colitis, unspecified; N18.3 Chronic kidney disease, stage 3 (moderate); G47.00 Insomnia, unspecified; R63.4 Abnormal weight loss; R63.0 Anorexia; F43.21 Adjustment disorder with depressed mood; Z68.26 Body mass index [BMI] 26.0-26.9, adult; Z79.01 Long term (current) use of anticoagulants; Z79.84 Long term (current) use of oral hypoglycemic drugs; Z95.0 Presence of cardiac pacemaker
CPT/HCPCS: 70450; 71045; 76937; 80048; 80053; 80061; 81001; 82550; 82948; 83036; 83605; 83735; 83880; 84484; 85025; 85610; 85730; 87040; 87086; 87493; 93005; 93306; 96360; 96361; J0696; J2543; J7030; J7040

== ENCOUNTER 2018-01-26 17:08 | Observation (INO) | payer MEDICARE, OTHER ==
[~2018-01-26 17:08] MED LIST changes: +BACT800T5 PO; +LACTTAB8 PO; -LEVA250T14 PO; -LISI40TA PO; -TYLE325T PO; +WALKER/ADULT/FO1 MIS
[2018-01-26 17:10] VITALS: BP 171/86; PULSE 84; RESP 20; TEMP 97.9; O2SAT 98
--- NOTE | 2018-01-26 17:48 | PD ---
HPI Chief Complaint: General Weakness Time Seen by Provider: 17:25 Travel History International Travel<30 days: No Contact w/Intl Traveler<30days: No Traveled to known affect area: No History of Present Illness HPI This patient was discharged from the hospital this morning. Today she was sitting in her recliner this and could not get up out of the chair. She called 911 and they brought her back here. She was home about 8 hours or so. No specific injury. She is having no pain. No syncope. She admittedly is very depressed because her in October. She thinks that is part of it. She was supposed to get a home health aide and physical therapy but says that is not going to start until Saturday. We discussed longterm placement in the hospital but she initially refused. Now she is reconsidered and thinks that that may be best. Symptom severity is moderate. No alleviating factors. Symptoms exacerbated by her weakness and depression. Duration 1 week PFSH Past Medical History Asthma: No Autoimmune Disease: No Blood Disorders: No Anxiety: No Depression: No Heart Rhythm Problems: Yes Cancer: No Cardiovascular Problems: Yes High Cholesterol: Yes Chest Pain: No Congestive Heart Failure: No Cerebrovascular Accident: Yes (CVA 2010) Diabetes: Yes Patient Takes Glucophage: No Endocrine: No Gastrointestinal Disorders: No Glaucoma: No Genitourinary: No Headaches: No Hepatitis: No Hiatal Hernia: No Hypertension: Yes Medical other: Yes (STROKE 5 YEARS AGO LT SIDED RESOLVED SYMPTOMS) Musculoskeletal: No Neurologic: Yes Psychiatric: No Reproductive: No Respiratory: No Myocardial Infarction: No Seizures: No Sickle Cell Disease: No Sleep Apnea: No Thyroid Disease: No : 4 Para: 4 Past Surgical History Abdominal Surgery: No AICD: No Cardiac Surgery: Yes (pacemaker) Ear Surgery: No Endocrine Surgery: No Eye Surgery: Yes (LT CATARACT) Genitourinary Surgery: No Gynecologic Surgery: Yes Neurologic Surgery: No Oral Surgery: No Pacemaker: Yes Thoracic Surgery: No Other Surgery: Yes Social History Alcohol Use: No Tobacco Use: No Substance Use: No Allergies-Medications (Allergen,Severity, Reaction): Coded Allergies: No Known Allergies (Verified Allergy, Unknown, 01/22/18) Reported Meds & Prescriptions Reported Meds & Active Scripts Active Bactrim DS (Sulfamethoxazole-Trimethoprim) 800-160 Mg Tab 1 Tab PO BID Lactobacillus Acidophilus 1 Billion Cell Tab 1 Tab PO TIDAC Walker/Adult/Folding (Device) 1 Mis Mis Ea .XX DIRECTED Klor-Con 10 (Potassium Chloride) 10 Meq Tab 10 Meq PO BID 30 Days Reported Tiazac (Diltiazem ER 24 HR) 120 Mg Caper 120 Mg PO DAILY Metformin (Metformin HCl) 500 Mg Tab 500 Mg PO BIDPC With meals Furosemide 20 Mg Tab 20 Mg PO DAILY Fish Oil + D3 (Fish Oil-Cholecalciferol) 1,200-1,000 Mg-Unit Cap 1 Cap PO DAILY Eliquis (Apixaban) 5 Mg Tab 5 Mg PO BID D3 Maximum Strength (Cholecalciferol) 5,000 Unit Cap 5,000 Units PO DAILY Clonidine (Clonidine HCl) 0.2 Mg Tab 0.2 Mg PO BID Atorvastatin (Atorvastatin Calcium) 40 Mg Tab 40 Mg PO HS Review of Systems General / Constitutional: No: Fever Eyes: No: Visual changes HENT: No: Headaches Cardiovascular: No: Chest Pain or Discomfort Respiratory: No: Shortness of Breath Gastrointestinal: No: Abdominal Pain Genitourinary: No: Dysuria Musculoskeletal: Positive: Weakness, No: Pain Skin: No Rash Neurologic: Positive: Weakness Psychiatric: Positive: Depression Endocrine: No: Polydipsia Hematologic/Lymphatic: No: Easy Bruising Physical Exam Narrative GENERAL: Well-nourished, well-developed patient in no apparent distress. SKIN: Focused skin assessment reveals no rash and nodules. Skin is Warm and dry. HEAD: Atraumatic. Normocephalic. EYES: Pupils equal and round. No scleral icterus. No injection or drainage. ENT: No nasal bleeding or discharge. Mucous membranes pink and moist. NECK: Trachea midline. No JVD. CARDIOVASCULAR: Regular rate and rhythm. No murmur appreciated. RESPIRATORY: No accessory muscle use. Clear to auscultation. Breath sounds equal bilaterally. GASTROINTESTINAL: Abdomen soft, non-tender, nondistended. Hepatic and splenic margins not palpable. MUSCULOSKELETAL: No obvious deformities. No clubbing. No cyanosis. No edema. NEUROLOGICAL: Awake and alert. No obvious cranial nerve deficits. Motor grossly within normal limits. Normal speech. PSYCHIATRIC: Depressed mood and flat affect; insight and judgment poor . She is not feeling suicidal Data Data Last Documented VS Vital Signs Date Time Temp Pulse Resp B/P (MAP) Pulse Ox O2 Delivery O2 Flow Rate FiO2 01/26/18 17:10 97.9 84 20 171/86 (114) [address] In Observation (01/26/18 ) Vital Signs (Adult) Q4H (01/26/18 18:49) Sodium Chloride 0.9% Flush (Ns Flush) (01/26/18 19:00) Sodium Chloride 0.9% Flush (Ns Flush) (01/26/18 21:00) Scd Bilateral/Knee High RAQUEL.BID (01/26/18 18:49) Naloxone Inj (Narcan Inj) (01/26/18 19:00) Docusate Sodium-Senna (Elicia-Colace) (01/26/18 21:00) Magnesium Hydroxide Liq (Milk Of Magnesi (01/26/18 19:00) Sennosides (Senokot) (01/26/18 19:00) Bisacodyl Supp (Dulcolax Supp) (01/26/18 19:00) Lactulose Liq (Lactulose Liq) (01/26/18 19:00) Case Management Consult (01/26/18 ) Bedside Glucose RAQUEL.CSUGAR (01/26/18 18:55) Blood Glucose Goal (Criteria) (01/26/18 18:55) Hypoglycemia 70 Mg/Dl Or < (01/26/18 18:55) Notify Dr: Other (01/26/18 18:55) Dextrose 50% In [place] (Vial) Inj (D50w (Vi (01/26/18 19:00) Glucagon Inj (Glucagon Inj) (01/26/18 19:00) Insulin Aspart Supplemtl Scale (Novolog (01/26/18 21:00) Vital Signs (Adult) Q4H (01/26/18 18:55) Activity Oob With Assistance (01/26/18 18:55) Intake + Output RAQUEL.QSHIFT (01/26/18 18:55) Diet 1800 Ada Cons Carb (01/26/18 Dinner) Sodium Chloride 0.9% Flush (Ns Flush) (01/26/18 19:00) Sodium Chloride 0.9% Flush (Ns Flush) (01/26/18 21:00) Metoclopramide Inj (Reglan Inj) (01/26/18 19:00) Comprehensive Metabolic Panel (01/27/18 06:00) Complete Blood Count With Diff (01/27/18 06:00) Pt Request For Service (01/26/18 18:55) Pharmacologic Contraindication (01/26/18 18:55) Acetaminophen (Tylenol) (01/26/18 19:00) Acetamin-Hydrocod 325-5 Mg ([place] 5-325 (01/26/18 19:00) Acetamin-Hydrocod 325-10 Mg ([place] 10-32 (01/26/18 19:00) Apixaban (Eliquis) (01/26/18 21:00) Atorvastatin (Lipitor) (01/26/18 21:00) Clonidine (Catapres) (01/26/18 21:00) Diltiazem Cd (Cardizem Cd) (01/27/18 09:00) Furosemide (Lasix) (01/27/18 09:00) Sulfamet-Trimeth Ds 800-160 Mg (Bactrim (01/26/18 21:00) Admit Order (Ed Use Only) (01/26/18 19:40) MDM Medical Decision Making Medical Screen Exam Complete: Yes Emergency Medical Condition: Yes Medical Record Reviewed: Yes Differential Diagnosis Generalized weakness, myalgias, fatigue, depression Narrative Course I have reviewed the patient's electronic medical record. I reviewed her discharge summary. She left the hospital today. I reviewed her labs from this morning. Patient does not require any more medical evaluation. She is only been home a few hours. Patient has generalized weakness and depression and wants to go to a longterm. I have discussed with the bilingual case manager who is going to look into the situation and see if the patient would qualify. I reviewed with the hospitalist. They will do an observation in the hospital and seek placement. channel marketing program manager reports that 2 Different Nursing Homes are looking into this patient but neither will be able to take her tonight. Diagnosis Primary Impression: Generalized weakness Additional Impression: Inability to care for self Admitting Information Admitting Physician Requests: Observation Minor Bonilla MD January 26, 2018 17:48
--- NOTE | 2018-01-26 18:57 | HHI.HP ---
[facility] Gaurav Jeff, DO Admission Diagnosis Diagnoses: (1) Generalized weakness Diagnosis: Principal (2) HTN (hypertension) Diagnosis: Principal (3) UTI (urinary tract infection) Diagnosis: Principal (4) A-fib (5) DM (diabetes mellitus) Diagnosis: Principal Travel History International Travel<30 Days: No Contact w/Intl Traveler <30 Da: No Traveled to Known Affected Are: No History of Present Illness This is a 77-year-old female with a PMH of HTN, CAD, Pacemaker, CVA and DM who was brought to the ER by EMS for weakness. Discharged from the hospital this morning after being admitted on 01/22/18 for UTI, Sepsis and Weakness. S/p eval by PT, initially recommended for SNF however pt declined, ultimately discharged w/ Home PT, however states when she got home she had significant weakness. Pt lives alone. Unable to ambulate on her own without assistance due to weakness. Denies fever, chills, nausea, vomiting or chest pain. On arrival, BP 170/89, HR 85, O2 sat 92% on RA, Afebrile. CBC at baseline. Creatinine 1.82, previously 2.25 on 01/24/2018. Review of Systems Except as stated in HPI: all other systems reviewed are Neg ROS: 14 point review of systems otherwise negative. Past Family Social History Past Medical History PMH: HTN, CAD, Pacemaker, CVA and DM Past Surgical History PAST SURGICAL HISTORY: Cataract Surgery, Pacemaker Allergies: Coded Allergies: No Known Allergies (Verified Allergy, Unknown, 01/22/18) Family History PAST FAMILY HISTORY: Reviewed. No h/o DM or CAD Social History PAST SOCIAL HISTORY: Negative for alcohol, tobacco or drugs. Physical Exam Vital Signs Vital Signs Date Time Temp Pulse Resp B/P (MAP) Pulse Ox O2 Delivery O2 Flow Rate FiO2 01/26/18 17:10 97.9 84 20 171/86 (114) 98 Physical Exam PE: GENERAL: Very pleasant elderly white female in no acute distress. HEENT: PERRLA, EOMI. No scleral icterus or conjunctival pallor. No lid lag or facial droop. CARDIOVASCULAR: Regular rate and rhythm. No obvious murmurs to auscultation. No chest tenderness to palpation. RESPIRATORY: No obvious rhonchi or wheezing. Clear to auscultation. Breath sounds equal bilaterally. GASTROINTESTINAL: Abdomen soft, non-tender, nondistended. BS normal. MUSCULOSKELETAL: Extremities without clubbing, cyanosis, or edema. No obvious deformities. NEUROLOGICAL: Awake, alert and oriented x4. No focal neurologic deficits. Moving both upper and lower extremities spontaneously. Caprini VTE Risk Assessment Caprini VTE Risk Assessment: No/Low Risk (score <= 1) Caprini Risk Assessment Model Point Value = 1 Point Value = 2 Point Value = 3 Point Value = 5 Age 41-60 Minor surgery BMI > 25 kg/m2 Swollen legs Varicose veins or History of unexplained or recurrent spontaneous Oral contraceptives or hormone replacement Sepsis (< 1 month) Serious lung disease, including pneumonia (< 1 month) Abnormal pulmonary function Acute myocardial infarction Congestive heart failure (< 1 month) History of inflammatory bowel disease Medical patient at bed rest Age 61-74 Arthroscopic surgery Major open surgery (> 45 min) Laparoscopic surgery (> 45 min) Malignancy Confined to bed (> 72 hours) Immobilizing plaster cast Central venous access Age >= 75 History of VTE Family history of VTE Factor V Leiden Prothrombin [id number] Lupus anticoagulant Anticardiolipin antibodies Elevated serum homocysteine Heparin-induced thrombocytopenia Other congenital or acquired thrombophilia Stroke (< 1 month) Elective arthroplasty Hip, pelvis, or leg fracture Acute spinal cord injury (< 1 month) Prophylaxis Regimen Total Risk Factor Score Risk Level Prophylaxis Regimen 0-1 Low Early ambulation 2 Moderate Order ONE of the following: *Sequential Compression Device (SCD) *Heparin 5000 units SQ BID 3-4 Higher Order ONE of the following medications: *Heparin 5000 units SQ TID *Enoxaparin/Lovenox 40 mg SQ daily (WT < 150 kg, CrCl > 30 mL/min) *Enoxaparin/Lovenox 30 mg SQ daily (WT < 150 kg, CrCl > 10-29 mL/min) *Enoxaparin/Lovenox 30 mg SQ BID (WT < 150 kg, CrCl > 30 mL/min) AND/OR *Sequential Compression Device (SCD) 5 or more Highest Order ONE of the following medications: *Heparin 5000 units SQ TID (Preferred with Epidurals) *Enoxaparin/Lovenox 40 mg SQ daily (WT < 150 kg, CrCl > 30 mL/min) *Enoxaparin/Lovenox 30 mg SQ daily (WT < 150 kg, CrCl > 10-29 mL/min) *Enoxaparin/Lovenox 30 mg SQ BID (WT < 150 kg, CrCl > 30 mL/min) AND *Sequential Compression Device (SCD) Assessment and Plan Problem List: (1) Generalized weakness ICD Code: R53.1 - Weakness Status: Acute (2) UTI (urinary tract infection) ICD Code: N39.0 - Urinary tract infection, site not specified (3) A-fib ICD Code: I48.91 - Unspecified atrial fibrillation (4) HTN (hypertension) ICD Code: I10 - Essential (primary) hypertension (5) DM (diabetes mellitus) ICD Code: E11.9 - Type 2 diabetes mellitus without complications Assessment and Plan A/P: 1. Generalized Weakness: recent admit 01/22/18 for same, s/p eval by PT w/ recommendation for SNF, however pt initially declined. D/c'd home today w/ Home PT however pt reports ongoing weakness, unable to ambulate without assistance and lives alone. Will admit for Observation and placement. PT for eval/tx. Case Management as needed. 2. HTN: Uncontrolled. BP 170's on arrival, resume home medications, monitor BP, antihypertensives for BP >180 3. UTI: recent UTI/Sepsis on last admit, d/c'd home on Bactrim DS bid, will continue w/ antibiotics. 4. DM: Sliding scale w/ Accu-Cheks, resume home medications. 5. A-fib: Chronic. On Eliquis, resume home medications. 6. DVT Prophylaxis: Eliquis 7. Social work for d/c planning as needed. 8. Case discussed w/ ER physician at length, labs/records/imaging reviewed by Sheila Dean MD January 26, 2018 18:57
[2018-01-26] MEDS ORDERED: METOCLOPRAMIDE HCL 10 MG/2 ML VIAL IV PUSH PRN (19:00)
[2018-01-26] MEDS ORDERED: ACETAMINOPHEN/HYDROcodone 325 MG/10 MG TAB PO PRN (19:00)
[2018-01-26] MEDS ORDERED: NALOXONE HCL 0.4 MG/ML AMP IV PUSH PRN (19:00)
[2018-01-26] MEDS ORDERED: DEXTROSE 50% IN WATER 50 ML VIAL(D50) IV PUSH PRN (19:00)
[2018-01-26] MEDS ORDERED: LACTULOSE SYRUP 20 GM/30 ML CUP PO PRN (19:00)
[2018-01-26] MEDS ORDERED: ACETAMINOPHEN 325 MG TAB PO PRN (19:00)
[2018-01-26] MEDS ORDERED: BISACODYL 10 MG SUPP RECTAL PRN (19:00)
[2018-01-26] MEDS ORDERED: GLUCAGON 1 MG/ML VIAL OTHER PRN (19:00)
[2018-01-26] MEDS ORDERED: MAGNESIUM HYDROXIDE SUSP 30 ML CUP PO PRN (19:00)
[2018-01-26] MEDS ORDERED: ACETAMINOPHEN/HYDROcodone 325 MG/5 MG TAB PO PRN (19:00)
[2018-01-26] MEDS ORDERED: SODIUM CHLORIDE 0.9% FLUSH 10 ML FLUSH IV FLUSH PRN ×2 (19:00)
[2018-01-26] MEDS ORDERED: SENNOSIDES 8.6 MG TAB PO PRN (19:00)
[2018-01-26 21:00] VITALS: BP 140/76; PULSE 79; RESP 21; TEMP 99; O2SAT 93
[2018-01-26] MEDS ORDERED: SULFAMETHOXAZOLE-TRIMETHOPRIM DS 800-160 MG TAB PO SCH (21:00)
[2018-01-26] MEDS: SODIUM CHLORIDE 0.9% FLUSH 10 ML FLUSH IV FLUSH SCH (21:00)
[2018-01-26] MEDS: INSULIN ASPART SUPPLEMENTAL SCALE SQ SCH (21:00)
[2018-01-26] MEDS ORDERED: SODIUM CHLORIDE 0.9% FLUSH 10 ML FLUSH IV FLUSH SCH (21:00)
[2018-01-26] MEDS: ATORVASTATIN 40 MG TAB PO SCH (21:47)
[2018-01-26] MEDS: APIXABAN 5 MG TABLET PO SCH (21:47)
[2018-01-26] MEDS: cloNIDine HCL 0.2 MG TAB PO SCH (21:47)
[2018-01-26] MEDS: DOCUSATE SODIUM 50 MG/SENNA 8.6 MG TAB PO SCH (21:47)
[2018-01-27] VITALS (7 sets, daily range): BP systolic 120–144; BP diastolic 59–82; PULSE 56–78; RESP 17–20; TEMP 97.9–99.2; O2SAT 92–98
[2018-01-27 05:00] LABS: BASOPHIL % 0.6 % (0.0-2.0); EOSINOPHIL # 0.3 TH/MM3 (0-0.4); EOSINOPHIL % 3.7 % (0.0-4.0); HEMATOCRIT 26.7 % (35.0-46.0); HEMOGLOBIN 9.1 GM/DL (11.6-15.3); LYMPH % 17.3 % (9.0-44.0); LYMPHOCYTE # 1.5 TH/MM3 (1.0-4.8); MEAN CORPUSCULAR HGB CONC 34.1 % (32.0-36.0); MEAN PLATELET VOLUME 8.9 FL (7.0-11.0); MONO % 7.7 % (0.0-8.0); MONOCYTE # 0.7 TH/MM3 (0-0.9); NEUT % 70.7 % (16.0-70.0); PLATELET COUNT 154 TH/MM3 (150-450); RED BLOOD COUNT 3.04 MIL/MM3 (4.00-5.30); RED CELL DISTRIBUTION WIDTH 15.5 % (11.6-17.2); WHITE BLOOD COUNT 8.5 TH/MM3 (4.0-11.0)
[2018-01-27 05:22] LABS: ALBUMIN 2.6 GM/DL (3.4-5.0); AST (GOT) 15 U/L (15-37); BICARBONATE 26.1 MEQ/L (21.0-32.0); BLOOD UREA NITROGEN 26 MG/DL (7-18); CALCIUM 9.2 MG/DL (8.5-10.1); CHLORIDE 109 MEQ/L (98-107); CREATININE 1.87 MG/DL (0.50-1.00); GLOMERULAR FILTRATION RATE 26 ML/MIN (>89); GLUCOSE,RANDOM 89 MG/DL (74-106); SODIUM (NA) 144 MEQ/L (136-145)
[2018-01-27 05:23] LABS: ALT (GPT) 14 U/L (10-53)
[2018-01-27 05:25] LABS: ALKALINE PHOSPHATASE 60 U/L (45-117); TOTAL BILIRUBIN ADULT 0.6 MG/DL (0.2-1.0); TOTAL PROTEIN 5.5 GM/DL (6.4-8.2)
[2018-01-27] MEDS: INSULIN ASPART SUPPLEMENTAL SCALE SQ SCH ×4 (08:00→20:27)
--- NOTE | 2018-01-27 08:54 | HHI.PR ---
Subjective Remarks Follow-up weakness. Patient denies syncope, falls, UTI symptoms, nausea and diarrhea. No history of heart failure. She has acute on chronic kidney disease will start IV hydration Objective Vitals Vital Signs Date Time Temp Pulse Resp B/P (MAP) Pulse Ox O2 Delivery O2 Flow Rate FiO2 01/27/18 07:51 98.3 66 20 140/78 (98) 92 01/27/18 04:38 99.2 63 20 144/59 (87) 92 01/27/18 00:10 99.0 72 18 129/63 (85) 93 01/26/18 21:00 99.0 79 21 140/76 (97) 93 01/26/18 17:10 97.9 84 20 171/86 (114) 98 Result Diagram: 01/27/18 0434 01/27/18 0434 Objective Remarks GENERAL: Very pleasant elderly white female in no acute distress. HEENT: PERRLA, EOMI. No scleral icterus or conjunctival pallor. No lid lag or facial droop. CARDIOVASCULAR: Regular rate and rhythm. No obvious murmurs to auscultation. No chest tenderness to palpation. RESPIRATORY: No obvious rhonchi or wheezing. Clear to auscultation. Breath sounds equal bilaterally. GASTROINTESTINAL: Abdomen soft, non-tender, nondistended. BS normal. MUSCULOSKELETAL: Extremities without clubbing, cyanosis, or edema. No obvious deformities. NEUROLOGICAL: Awake, alert and oriented x4. No focal neurologic deficits. Moving both upper and lower extremities spontaneously. Procedures none A/P Problem List: (1) Generalized weakness ICD Code: R53.1 - Weakness Status: Acute (2) UTI (urinary tract infection) ICD Code: N39.0 - Urinary tract infection, site not specified (3) A-fib ICD Code: I48.91 - Unspecified atrial fibrillation (4) HTN (hypertension) ICD Code: I10 - Essential (primary) hypertension (5) DM (diabetes mellitus) ICD Code: E11.9 - Type 2 diabetes mellitus without complications Assessment and Plan 1. Generalized Weakness: recent admit 01/22/18 for same, s/p eval by PT w/ recommendation for SNF, however pt initially declined. D/c'd home w/ Home PT however pt reports ongoing weakness, unable to ambulate without assistance and lives alone. Will admit for Observation and placement. PT for eval/tx. Case Management to assist with rehab placement 2. HTN: Uncontrolled. BP 170's on arrival, resume home medications, monitor BP, antihypertensives for BP >180. Improving 3. UTI: recent UTI/Sepsis on last admit, d/c'd home on Bactrim DS bid. Urine culture with contaminants will discontinue antibiotic patient received Zosyn and Bactrim 4. DM: Sliding scale w/ Accu-Cheks, resume home medications. 5. A-fib: Chronic. On Eliquis, resume home medications. 6. Acute on chronic kidney disease stage III. Nonoliguric. Preserved ejection fraction. IV hydration for 1 day. Repeat BMP in the morning if not discharged today DVT Prophylaxis: Eliquis Discharge Planning Discharge patient to detention facility Condition on discharge: Improved Regular Diet as tolerated Ad Katya activity no driving Rx written: None Follow-up with primary care physician Sal Johnson MD January 27, 2018 08:54
--- NOTE | 2018-01-27 08:58 | HHI.DCPOC ---
Discharge Care Plan Diagnosis: (1) Generalized weakness Your Health Problems Are: Difficulty with ADL Exercise Tolerance Goals to Promote Your Health * To prevent worsening of your condition and complications * To maintain your health at the optimal level Directions to Meet Your Goals Take your medications as prescribed Follow your dietary instruction Follow activity as directed Keep your appointments as scheduled Take your immunizations and boosters as scheduled If your symptoms worsen call your PCP, if no PCP go to Urgent Care Center or Emergency Room Smoking is Dangerous to Your Health. Avoid second hand smoke Call the 24-hour hour crisis hotline for domestic abuse at Sal Johnson MD January 27, 2018 08:58
[2018-01-27] MEDS: DOCUSATE SODIUM 50 MG/SENNA 8.6 MG TAB PO SCH ×2 (09:00→20:27)
[2018-01-27] MEDS ORDERED: SODIUM CHLOR 0.9% 1000 ML INJ 1,000 ML IV SCH (09:00)
[2018-01-27] MEDS: FUROSEMIDE 20 MG TAB PO SCH (09:30)
[2018-01-27] MEDS: cloNIDine HCL 0.2 MG TAB PO SCH ×2 (09:30→20:27)
[2018-01-27] MEDS: APIXABAN 5 MG TABLET PO SCH ×2 (09:30→20:27)
[2018-01-27] MEDS: DILTIAZEM-CD 120 MG CAP ER PO SCH (09:31)
[2018-01-27] MEDS: SODIUM CHLORIDE 0.9% FLUSH 10 ML FLUSH IV FLUSH SCH ×2 (09:31→20:26)
[2018-01-27] MEDS: ATORVASTATIN 40 MG TAB PO SCH (20:27)
[2018-01-28 04:19] VITALS: BP 145/72; PULSE 71; RESP 17; TEMP 98.6; O2SAT 94
[2018-01-28 07:47] VITALS: BP 156/77; PULSE 70; RESP 16; TEMP 97.8; O2SAT 95
[2018-01-28 08:20] LABS: BASOPHIL # 0.1 TH/MM3 (0-0.2); BASOPHIL % 0.7 % (0.0-2.0); EOSINOPHIL # 0.3 TH/MM3 (0-0.4); EOSINOPHIL % 3.9 % (0.0-4.0); HEMATOCRIT 27.8 % (35.0-46.0); HEMOGLOBIN 9.5 GM/DL (11.6-15.3); LYMPH % 17.8 % (9.0-44.0); LYMPHOCYTE # 1.3 TH/MM3 (1.0-4.8); MEAN CELL VOLUME 89.3 FL (80.0-100.0); MEAN CORPUSCULAR HEMOGLOBIN 30.4 PG (27.0-34.0); MEAN PLATELET VOLUME 8.9 FL (7.0-11.0); MONOCYTE # 0.5 TH/MM3 (0-0.9); NEUT % 70.6 % (16.0-70.0); PLATELET COUNT 176 TH/MM3 (150-450); RED BLOOD COUNT 3.12 MIL/MM3 (4.00-5.30); RED CELL DISTRIBUTION WIDTH 15.4 % (11.6-17.2); WHITE BLOOD COUNT 7.1 TH/MM3 (4.0-11.0)
[2018-01-28 08:41] LABS: BICARBONATE 23.6 MEQ/L (21.0-32.0); CREATININE 1.83 MG/DL (0.50-1.00); MAGNESIUM 1.9 MG/DL (1.5-2.5)
[2018-01-28] MEDS: DILTIAZEM-CD 120 MG CAP ER PO SCH (09:00)
[2018-01-28] MEDS: DOCUSATE SODIUM 50 MG/SENNA 8.6 MG TAB PO SCH (09:00)
[2018-01-28] MEDS: SODIUM CHLORIDE 0.9% FLUSH 10 ML FLUSH IV FLUSH SCH (09:00)
[2018-01-28] MEDS: INSULIN ASPART SUPPLEMENTAL SCALE SQ SCH ×3 (09:00→17:40)
[2018-01-28] MEDS: FUROSEMIDE 20 MG TAB PO SCH (09:01)
[2018-01-28] MEDS: cloNIDine HCL 0.2 MG TAB PO SCH (09:01)
[2018-01-28] MEDS: APIXABAN 5 MG TABLET PO SCH (09:01)
--- NOTE | 2018-01-28 09:28 | HHI.PR ---
Subjective Remarks Follow up for generalized weakness, HTN, DM, Afib, CASIMIRO on CKD. The patient reports continued generalized weakness, although slowly improving. She states she has been able to walk 1-2 steps to the bedside commode without assistance. Denies any fever/chills, dysuria, or urinary complaints. She is looking forward to going to rehab. Objective Vitals Vital Signs Date Time Temp Pulse Resp B/P (MAP) Pulse Ox O2 Delivery O2 Flow Rate FiO2 01/28/18 07:47 97.8 70 16 156/77 (103) 95 01/28/18 04:19 98.6 71 17 145/72 (96) 94 01/27/18 23:09 98.2 65 17 137/74 (95) 95 01/27/18 19:54 66 17 130/79 (96) 93 01/27/18 17:09 97.9 78 20 140/82 (101) 96 01/27/18 12:22 98.2 56 20 120/73 (89) 98 I/O 01/27/18 01/27/18 01/27/18 01/28/18 01/28/18 01/28/18 07:00 15:00 23:00 07:00 15:00 23:00 Intake Total 360 ml Balance 360 ml Intake Oral 360 ml # Voids 1 Result Diagram: 01/28/18 0745 01/28/18 0745 Objective Remarks GENERAL: Well-nourished, well-developed pleasant elderly female patient in [facility]. SKIN: Warm and dry. No rash. HEENT: Normocephalic. Atraumatic. Pupils equal and round. Mucous membranes pink and moist. CARDIOVASCULAR: Regular rate and rhythm. 2/6 systolic murmur noted. RESPIRATORY: No accessory muscle use. Clear to auscultation. Breath sounds equal bilaterally. GASTROINTESTINAL: Abdomen soft, non-tender, nondistended. Normoactive bowel sounds x4. MUSCULOSKELETAL: No obvious deformities. Extremities without clubbing, cyanosis , or edema. NEUROLOGICAL: Awake and alert. No obvious cranial nerve deficits. Motor grossly within normal limits. Moving all extremities spontaneously. Normal speech. PSYCHIATRIC: Appropriate mood and affect; insight and judgment normal. Procedures none Medications and IVs Current Medications Medications (Trade) Dose Ordered Sig/Robyn Route Start Time Stop Time Status Last Admin (Narcan Inj) 0.4 mg UNSCH PRN IV PUSH 01/26/18 19:00 (Elicia-Colace) 1 tab BID PO 01/26/18 21:00 01/27/18 20:27 (Senokot) 17.2 mg Q12H PRN PO 01/26/18 19:00 (Dulcolax Supp) 10 mg DAILY PRN RECTAL 01/26/18 19:00 (Lactulose Liq) 30 ml DAILY PRN PO 01/26/18 19:00 (D50w (Vial) Inj) 50 ml UNSCH PRN IV PUSH 01/26/18 19:00 (Glucagon Inj) 1 mg UNSCH PRN OTHER 01/26/18 19:00 (NovoLOG SUPPLEMENTAL SCALE) 1 ACHS SLIDING SCALE SQ 01/26/18 21:00 01/27/18 20:27 (NS Flush) 2 ml UNSCH PRN IV FLUSH 01/26/18 19:00 (NS Flush) 2 ml BID IV FLUSH 01/26/18 21:00 01/28/18 09:00 (Reglan Inj) 5 mg Q6H PRN IV PUSH 01/26/18 19:00 (Tylenol) 650 mg Q6H PRN PO 01/26/18 19:00 ([place] 5-325 Mg) 1 tab Q4H PRN PO 01/26/18 19:00 ([place] 10-325 Mg) 1 tab Q4H PRN PO 01/26/18 19:00 (Eliquis) 5 mg BID PO 01/26/18 21:00 01/28/18 09:01 (Lipitor) 40 mg HS PO 01/26/18 21:00 01/27/18 20:27 (Catapres) 0.2 mg BID PO 01/26/18 21:00 01/28/18 09:01 (Cardizem Cd) 120 mg DAILY PO 01/27/18 09:00 01/28/18 09:00 (Lasix) 20 mg DAILY PO 01/27/18 09:00 01/28/18 09:01 A/P Problem List: (1) Generalized weakness ICD Code: R53.1 - Weakness Status: Acute (2) UTI (urinary tract infection) ICD Code: N39.0 - Urinary tract infection, site not specified (3) A-fib ICD Code: I48.91 - Unspecified atrial fibrillation (4) HTN (hypertension) ICD Code: I10 - Essential (primary) hypertension (5) DM (diabetes mellitus) ICD Code: E11.9 - Type 2 diabetes mellitus without complications Assessment and Plan Generalized Weakness: recent admit 01/22/18 for same, s/p eval by PT w/ recommendation for SNF, however pt initially declined. D/c'd home w/ Home PT however pt reports ongoing weakness, unable to ambulate without assistance and lives alone. Will admit for Observation and placement. PT for eval/tx. Case Management to assist with rehab placement HTN: Uncontrolled. BP 170's on arrival -resumed home medications including clonidine, cardizem, lasix -monitor BP, improved UTI: recent UTI/Sepsis on last admit, d/c'd home on Bactrim DS bid. -Urine culture with contaminants, will discontinue antibiotic, patient received Zosyn and Bactrim -resolved DM: Chronic. BG fairly well controlled -Continue Sliding scale w/ Accu-Cheks -D/c patient's metformin with CKD -Needs outpatient f/up with PCP A-fib: Chronic. Rate controlled. -Continue patient's Cardizem CD 120mg qd, and anticoagulation with Eliquis Acute on chronic kidney disease stage III: Nonoliguric. Preserved ejection fraction. Cr 1.8 upon this admission, previously 2.66 on 01/22/18. -Given IV hydration for 1 day. -Repeat BMP with Cr 1.83, suspect patient's new baseline DVT Prophylaxis: Eliquis Discharge Planning Discharge patient to [facility] facility Condition on discharge: Stable Heart Healthy/Diabetic Diet as tolerated Ad Katya activity, no driving Rx written: Low dose Novolog SSI Follow-up with primary care physician within 2-3 days Luz Sanders PA-C January 28, 2018 9:28 am
[2018-01-28] MEDS ORDERED: NOVOLOGP2 SQ (10:46)
[2018-01-28 11:23] VITALS: BP 143/70; PULSE 60; RESP 16; TEMP 97.6; O2SAT 94
[2018-01-28 15:16] VITALS: BP 133/85; PULSE 75; RESP 16; TEMP 98.1; O2SAT 90
== END 2018-01-28 18:57 ==
LOC: NEPD 17:08 → NEDA 19:49 → NEPFCDU 20:35
PROVIDERS: ADMIT Family Medicine; ATTEND Family Medicine
DX: R53.1 Weakness (principal); N39.0 Urinary tract infection, site not specified; I48.2 Chronic atrial fibrillation; I25.10 Atherosclerotic heart disease of native coronary artery without angina pectoris; E78.00 Pure hypercholesterolemia, unspecified; I12.9 Hypertensive chronic kidney disease with stage 1 through stage 4 chronic kidney disease, or unspecified chronic kidney disease; E11.22 Type 2 diabetes mellitus with diabetic chronic kidney disease; N18.3 Chronic kidney disease, stage 3 (moderate); F32.9 Major depressive disorder, single episode, unspecified; Z86.73 Personal history of transient ischemic attack (TIA), and cerebral infarction without residual deficits; Z95.0 Presence of cardiac pacemaker; Z79.899 Other long term (current) drug therapy; Z79.01 Long term (current) use of anticoagulants; Z79.84 Long term (current) use of oral hypoglycemic drugs
CPT/HCPCS: 80048; 80053; 82948; 83735; 85025; 96360; 97163; 99285; G0378; G8987; G8988; J1815; J7030

== ENCOUNTER 2018-05-27 18:00 | Inpatient (IN) ==
[2018-05-27] MEDS ORDERED: Sod Chloride 0.9% Inj 1,000 ML IV.CONT SCH ×2 (18:45→21:45)
--- NOTE | 2018-05-27 18:49 | ED ---
HPI General Chief complaint: Nausea/Vomiting/Diarrhea Stated complaint: Weakness/N/V Time Seen by Provider: 05/27/18 18:25 Source: patient Mode of arrival: ambulatory Limitations: no limitations History of Present Illness HPI Narrative: 77-year-old female with a history of CVA on blood thinners presents to the emergency department [facility] for evaluation of nausea, vomiting, and diarrhea that started about 3 PM this afternoon. Her facility called to have her transported to the emergency department. She is a rather poor historian and much of the information is obtained from records. Patient denies headache, blurred vision, neck pain, back pain, shortness of breath, chest pain, abdominal pain, leg pain. She denies hematochezia, hemoptysis, hematemesis, anemia. She is unable to tell me which blood thinner she takes. She denies history of trauma or falls. She does not remember her neurologist name. MD Complaint: generalized weakness Related Data Home Medications Medication Instructions Recorded Confirmed apixaban [Eliquis] 5 mg PO BID 05/27/18 05/27/18 atorvastatin 40 mg PO DAILY 05/27/18 05/27/18 cholecalciferol (vitamin D3) 5,000 unit PO DAILY 05/27/18 05/27/18 [Vitamin D3] clonidine HCl 0.2 mg PO BID 05/27/18 05/30/18 diltiazem HCl [DILT-XR] 120 mg PO DAILY 05/27/18 05/27/18 ferrous sulfate 325 mg PO DAILY 05/27/18 05/27/18 furosemide 20 mg PO DAILY 05/27/18 05/27/18 omega 5-ebr-mfn-fish oil [Fish Oil] 1,000 mg PO DAILY 05/27/18 05/27/18 potassium chloride 10 meq PO DAILY 05/27/18 05/27/18 lisinopril 40 mg PO DAILY 05/28/18 05/28/18 metformin 500 mg PO DAILY 05/28/18 05/28/18 Allergies Allergy/AdvReac Type Severity Reaction Status Date / Time No Known Allergies Allergy Unknown none Uncoded 05/27/18 20:59 Review of Systems ROS: all other systems reviewed are negative PMFSH Social History Social History Substance History: No History of Abuse Second Hand Smoke Exposure: No Smoking Status: Never smoker How Often Do You Have a Drink Containing Alcohol: Never Recent Out of Country Travel within the Last 8 Weeks: No Immunization History Tetanus Immunization: Unsure Hx Influenza Vaccine This Season: Unable to Assess Exam Narrative Exam Narrative: GENERAL: WD, WN in NAD, slurred speech SKIN: Warm and dry. HEAD: Atraumatic. Normocephalic. EYES: Pupils equal and round. No scleral icterus. No injection or drainage. ENT: No nasal bleeding or discharge. Mucous membranes pink and moist. NECK: Trachea midline. No JVD. CARDIOVASCULAR: Regular rate and rhythm. RESPIRATORY: No accessory muscle use. Clear to auscultation. Breath sounds equal bilaterally. GASTROINTESTINAL: Abdomen soft, non-tender, nondistended. Hepatic and splenic margins not palpable. MUSCULOSKELETAL: Extremities without clubbing, cyanosis, or edema. No obvious deformities. NEUROLOGICAL: Awake and alert. No obvious cranial nerve deficits. Motor grossly within normal limits. Five out of 5 muscle strength in the arms and legs. Normal speech. No pronator drift. Answers questions appropriately but forgets the year, month, and cannot recall season. Knows self and president. PSYCHIATRIC: Appropriate mood and affect; insight and judgment normal. Course Initial Documented Vital Signs Pulse Rate 70 05/27/18 18:07 Respiratory Rate 12 05/27/18 18:07 Blood Pressure 179/94 H 05/27/18 18:07 Pulse Oximetry 96 05/27/18 18:07 Last Documented Vital Signs Temperature 98.5 F 05/30/18 12:00 Pulse Rate 85 05/30/18 12:00 Respiratory Rate 14 05/30/18 12:00 Blood Pressure 145/86 H 05/30/18 12:00 Pulse Oximetry 97 05/30/18 12:00 Medical Decision Making JOSÉ MIGUEL Attestation JOSÉ MIGUEL supervised visit: Yes Attestation: I, Dr. Atwood, have reviewed the advance practice practitioner's documentation and am in agreement, met with the patient face to face, made the diagnosis, and the medical decision making was done by me. The patient was initially evaluated by Ramona, the JOSÉ MIGUEL. Please see their complete history and physical. *My assessment and Findings: The patient presents with reported history of sudden onset of nausea vomiting sometime between 3 and 5 PM today. The patient according to the record has a prior history of stroke that affected the right side. The patient unfortunately is a poor historian and most of her history is obtained from reviewing the electronic medical record. Ambulance services reported that the patient was having difficulty speaking, difficulty with word finding. It is unclear when this began. The patient had no other focal findings. 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 The patient according to the record is also now on Eliquis for chronic atrial fibrillation. The patient's examination is remarkable for an expressive aphasia. No other focal findings. The patient is not a candidate for TPA due to her prior history of intracranial hemorrhage and anticoagulation on Eliquis. The patient was initially evaluated by Sofie. A call was placed out to the neurologist on-call regarding the patient's symptoms. Dr. Pham, the neurologist, who recommended that the patient undergo CTA of the head and neck. Unfortunately, the patient's GFR was too low to obtain this even after discussion with the radiologist. He instead recommended that the patient undergo MRI of the brain, MRA of the [place], MRA of the neck to further evaluate. The studies were ordered. During the course of the patient's emergency department visit, the patient's history, examination, and differential diagnosis were reviewed with the patient. The patient was placed on a pipe fitter fire sprinkler systems with oximetry and frequent blood pressure monitoring. The patient had IV access obtained and blood work sent for analysis. The patient was initially provided normal saline at 70 mL/h. Head of the bed was placed flat. The patient's laboratory studies were reviewed and remarkable for laboratory studies that were remarkable for an elevated creatinine with a diminished GFR. Radiology studies were reviewed and remarkable for CT scan of the brain without contrast showed no acute abnormality. Unfortunately, it was found that the patient has a pacemaker in place and the certified medical technician assistant reported that further information would have to be obtained about the pacemaker prior to MRI being completed to see if the pacemaker was actually compatible with MRI scanning. The patient was admitted to the hospital in [facility] and sent to a bed under the care of the [facility] hospitalist service. MDM Narrative Medical decision making narrative: 77 y female presents to the ED via EV[facility] for nausea/vomiting that stated about 3p today. She currently is asymptomatic in that regards but EVAC reports slurred speech and aphasia. It is unsure if this is patient's baseline. EKG Paced rhythm rate 62 BPM, regular, each complex associated with pacer spike. Performed NIH stroke score of 3. I spoke with Dr. Pham he recommended CTA of the head and neck. Unfortunately, unable to perform due to eGFR limits. The radiologist recommended MR but patient has pacemaker. Radiology states they will check the compatibility of her PC with the MRI. Because patient states compliance with Eliquis, Dr. Pham recommended adding a baby aspirin. Neuro consult will be placed. She states that patient will have evaluation tomorrow morning. The nurse spoke with the family (daughter) and states patient does have intermittent confusion but usually has clear speech. Will admit to Dr. Lozada. Medical Screen Exam Complete: Yes Emergency Medical Condition: Yes Differential Diagnosis Differential Diagnosis: CVA, AMS, weakness, UTI, dehydration Medical Records Medical records reviewed: Yes I reviewed the patient's medical records. Last admission 01/26/2018 for weakness and depression after a 2-day stay in the hospital for weakness. Patient's vessel slagman Dr. Watson. She has a history of chronic atrial fibrillation status post PM. She has a Biotronik PM. On Eliquis 5mg BID. Echocardiogram 01/23/2018 EF 60-65% Patient was admitted for 2 days and discharged with recommendation of going to an [facility]. Patient refused at that time. At that time she was also reporting multiple episodes of diarrhea daily. Lab Data Result diagrams: 05/27/18 18:30 05/27/18 18:30 Lab Results 05/27/18 05/27/18 05/27/18 Range/Units 18:30 18:30 18:30 WBC 11.0 (4.0-11.0) th/mm3 RBC 4.24 (4.00-5.30) mil/mm3 Hgb 12.6 (11.6-15.3) gm/dL Hct 39.0 (35.0-46.0) % MCV 91.9 (80.0-100.0) fL MCH 29.8 (27.0-34.0) pg MCHC 32.4 (32.0-36.0) % RDW 16.5 (11.6-17.2) % Plt Count 205 (150-450) th/mm3 MPV 9.3 (7.0-11.0) fL Neut % (Auto) 88.5 H (16.0-70.0) % Lymph % (Auto) 8.8 L (9.0-44.0) % Howard % (Auto) 2.1 (0.0-8.0) % Eos % (Auto) 0.1 (0.0-4.0) % Baso % (Auto) 0.5 (0.0-2.0) % Neut # (Auto) 9.7 H (1.8-7.7) th/mm3 Lymph # (Auto) 1.0 (1.0-4.8) th/mm3 Howard # (Auto) 0.2 (0.0-0.9) th/mm3 Eos # (Auto) 0.0 (0.0-0.4) th/mm3 Baso # (Auto) 0.1 (0.0-0.2) th/mm3 WBC Differential . Differential Comment Auto diff final PT 11.5 (9.8-11.6) sec INR 1.1 Ratio Sodium 141 (136-145) meq/L Potassium 4.3 (3.5-5.1) meq/L Chloride 107 (98-107) meq/L Carbon Dioxide 24.1 (21.0-32.0) meq/L Anion Gap 10 (5-15) meq/L BUN 32 H (7-18) mg/dL Creatinine 1.77 H (0.50-1.00) mg/dL Estimated GFR 28 L (>89) mL/min POC Glucose (68-110) mg/dl Random Glucose 142 H (74-106) mg/dL Hemoglobin A1c (4.3-6.0) % Calcium 9.9 (8.5-10.1) mg/dL Total Bilirubin 0.4 (0.2-1.0) mg/dL AST 28 (15-37) U/L ALT 35 (10-53) U/L Alkaline Phosphatase 102 (45-117) U/L Ammonia (11-32) mcmol/L Total Protein 7.4 (6.4-8.2) g/dL Albumin 4.2 (3.4-5.0) g/dL Triglycerides (42-150) mg/dL Cholesterol (120-200) mg/dL LDL Cholesterol, Calc (0-99) mg/dL HDL Cholesterol (40.0-60.0) mg/dL Cholesterol/HDL Ratio Ratio Vitamin B12 (193-986) pg/mL TSH (0.358-3.740) uIU/mL Urine Color (Yellw/Straw) Urine Clarity (Clear) Urine pH (5.0-8.5) Ur Specific [place] (1.002-1.035) Urine Protein (Neg-Trace) mg/dL Urine Glucose (UA) (Negative) mg/dL Urine Ketones (Negative) mg/dL Urine Occult Blood (Negative) Urine Nitrate (Negative) Urine Bilirubin (Negative) Urine Urobilinogen (Less than 2) mg/dL Ur Leukocyte Esterase (Negative) Urine RBC (0-3) /hpf Urine WBC (0-5) /hpf Hyaline Casts (0-3) /lpf Urine Mucus (Occasional) /lpf Micro UA Comment Ur Microscopic Review Urine Culture Comments 05/27/18 05/28/18 05/28/18 Range/Units 18:44 04:59 04:59 WBC (4.0-11.0) th/mm3 RBC (4.00-5.30) mil/mm3 Hgb (11.6-15.3) gm/dL Hct (35.0-46.0) % MCV (80.0-100.0) fL MCH (27.0-34.0) pg MCHC (32.0-36.0) % RDW (11.6-17.2) % Plt Count (150-450) th/mm3 MPV (7.0-11.0) fL Neut % (Auto) (16.0-70.0) % Lymph % (Auto) (9.0-44.0) % Howard % (Auto) (0.0-8.0) % Eos % (Auto) (0.0-4.0) % Baso % (Auto) (0.0-2.0) % Neut # (Auto) (1.8-7.7) th/mm3 Lymph # (Auto) (1.0-4.8) th/mm3 Howard # (Auto) (0.0-0.9) th/mm3 Eos # (Auto) (0.0-0.4) th/mm3 Baso # (Auto) (0.0-0.2) th/mm3 WBC Differential Differential Comment PT (9.8-11.6) sec INR Ratio Sodium (136-145) meq/L Potassium (3.5-5.1) meq/L Chloride (98-107) meq/L Carbon Dioxide (21.0-32.0) meq/L Anion Gap (5-15) meq/L BUN (7-18) mg/dL Creatinine (0.50-1.00) mg/dL Estimated GFR (>89) mL/min POC Glucose (68-110) mg/dl Random Glucose (74-106) mg/dL Hemoglobin A1c 6.4 H (4.3-6.0) % Calcium (8.5-10.1) mg/dL Total Bilirubin (0.2-1.0) mg/dL AST (15-37) U/L ALT (10-53) U/L Alkaline Phosphatase (45-117) U/L Ammonia Less than 10 L (11-32) mcmol/L Total Protein (6.4-8.2) g/dL Albumin (3.4-5.0) g/dL Triglycerides 65 (42-150) mg/dL Cholesterol 127 (120-200) mg/dL LDL Cholesterol, Calc 47 (0-99) mg/dL HDL Cholesterol 67.4 H (40.0-60.0) mg/dL Cholesterol/HDL Ratio 1.88 Ratio Vitamin B12 (193-986) pg/mL TSH (0.358-3.740) uIU/mL Urine Color (Yellw/Straw) Urine Clarity (Clear) Urine pH (5.0-8.5) Ur Specific [place] (1.002-1.035) Urine Protein (Neg-Trace) mg/dL Urine Glucose (UA) (Negative) mg/dL Urine Ketones (Negative) mg/dL Urine Occult Blood (Negative) Urine Nitrate (Negative) Urine Bilirubin (Negative) Urine Urobilinogen (Less than 2) mg/dL Ur Leukocyte Esterase (Negative) Urine RBC (0-3) /hpf Urine WBC (0-5) /hpf Hyaline Casts (0-3) /lpf Urine Mucus (Occasional) /lpf Micro UA Comment Ur Microscopic Review Urine Culture Comments 05/28/18 05/28/18 05/28/18 Range/Units 04:59 07:47 13:06 WBC (4.0-11.0) th/mm3 RBC (4.00-5.30) mil/mm3 Hgb (11.6-15.3) gm/dL Hct (35.0-46.0) % MCV (80.0-100.0) fL MCH (27.0-34.0) pg MCHC (32.0-36.0) % RDW (11.6-17.2) % Plt Count (150-450) th/mm3 MPV (7.0-11.0) fL Neut % (Auto) (16.0-70.0) % Lymph % (Auto) (9.0-44.0) % Howard % (Auto) (0.0-8.0) % Eos % (Auto) (0.0-4.0) % Baso % (Auto) (0.0-2.0) % Neut # (Auto) (1.8-7.7) th/mm3 Lymph # (Auto) (1.0-4.8) th/mm3 Howard # (Auto) (0.0-0.9) th/mm3 Eos # (Auto) (0.0-0.4) th/mm3 Baso # (Auto) (0.0-0.2) th/mm3 WBC Differential Differential Comment PT (9.8-11.6) sec INR Ratio Sodium (136-145) meq/L Potassium (3.5-5.1) meq/L Chloride (98-107) meq/L Carbon Dioxide (21.0-32.0) meq/L Anion Gap (5-15) meq/L BUN (7-18) mg/dL Creatinine (0.50-1.00) mg/dL Estimated GFR (>89) mL/min POC Glucose 114 H 114 H (68-110) mg/dl Random Glucose (74-106) mg/dL Hemoglobin A1c (4.3-6.0) % Calcium (8.5-10.1) mg/dL Total Bilirubin (0.2-1.0) mg/dL AST (15-37) U/L ALT (10-53) U/L Alkaline Phosphatase (45-117) U/L Ammonia (11-32) mcmol/L Total Protein (6.4-8.2) g/dL Albumin (3.4-5.0) g/dL Triglycerides (42-150) mg/dL Cholesterol (120-200) mg/dL LDL Cholesterol, Calc (0-99) mg/dL HDL Cholesterol (40.0-60.0) mg/dL Cholesterol/HDL Ratio Ratio Vitamin B12 445 (193-986) pg/mL TSH 0.943 (0.358-3.740) uIU/mL Urine Color (Yellw/Straw) Urine Clarity (Clear) Urine pH (5.0-8.5) Ur Specific [place] (1.002-1.035) Urine Protein (Neg-Trace) mg/dL Urine Glucose (UA) (Negative) mg/dL Urine Ketones (Negative) mg/dL Urine Occult Blood (Negative) Urine Nitrate (Negative) Urine Bilirubin (Negative) Urine Urobilinogen (Less than 2) mg/dL Ur Leukocyte Esterase (Negative) Urine RBC (0-3) /hpf Urine WBC (0-5) /hpf Hyaline Casts (0-3) /lpf Urine Mucus (Occasional) /lpf Micro UA Comment Ur Microscopic Review Urine Culture Comments 05/28/18 05/28/18 05/29/18 Range/Units 16:39 21:48 02:56 WBC (4.0-11.0) th/mm3 RBC (4.00-5.30) mil/mm3 Hgb (11.6-15.3) gm/dL Hct (35.0-46.0) % MCV (80.0-100.0) fL MCH (27.0-34.0) pg MCHC (32.0-36.0) % RDW (11.6-17.2) % Plt Count (150-450) th/mm3 MPV (7.0-11.0) fL Neut % (Auto) (16.0-70.0) % Lymph % (Auto) (9.0-44.0) % Howard % (Auto) (0.0-8.0) % Eos % (Auto) (0.0-4.0) % Baso % (Auto) (0.0-2.0) % Neut # (Auto) (1.8-7.7) th/mm3 Lymph # (Auto) (1.0-4.8) th/mm3 Howard # (Auto) (0.0-0.9) th/mm3 Eos # (Auto) (0.0-0.4) th/mm3 Baso # (Auto) (0.0-0.2) th/mm3 WBC Differential Differential Comment PT (9.8-11.6) sec INR Ratio Sodium (136-145) meq/L Potassium (3.5-5.1) meq/L Chloride (98-107) meq/L Carbon Dioxide (21.0-32.0) meq/L Anion Gap (5-15) meq/L BUN (7-18) mg/dL Creatinine (0.50-1.00) mg/dL Estimated GFR (>89) mL/min POC Glucose 109 113 H (68-110) mg/dl Random Glucose (74-106) mg/dL Hemoglobin A1c (4.3-6.0) % Calcium (8.5-10.1) mg/dL Total Bilirubin (0.2-1.0) mg/dL AST (15-37) U/L ALT (10-53) U/L Alkaline Phosphatase (45-117) U/L Ammonia (11-32) mcmol/L Total Protein (6.4-8.2) g/dL Albumin (3.4-5.0) g/dL Triglycerides (42-150) mg/dL Cholesterol (120-200) mg/dL LDL Cholesterol, Calc (0-99) mg/dL HDL Cholesterol (40.0-60.0) mg/dL Cholesterol/HDL Ratio Ratio Vitamin B12 (193-986) pg/mL TSH (0.358-3.740) uIU/mL Urine Color Yellow (Yellw/Straw) Urine Clarity Clear (Clear) Urine pH 6.0 (5.0-8.5) Ur Specific [place] 1.015 (1.002-1.035) Urine Protein 100 H (Neg-Trace) mg/dL Urine Glucose (UA) Negative (Negative) mg/dL Urine Ketones Negative (Negative) mg/dL Urine Occult Blood Small H (Negative) Urine Nitrate Negative (Negative) Urine Bilirubin Negative (Negative) Urine Urobilinogen Less than 2 (Less than 2) mg/dL Ur Leukocyte Esterase Negative (Negative) Urine RBC 3 (0-3) /hpf Urine WBC 1 (0-5) /hpf Hyaline Casts 12 (0-3) /lpf Urine Mucus Few H (Occasional) /lpf Micro UA Comment Culture not ind Ur Microscopic Review Not Reportable Urine Culture Comments Culture not ind 05/29/18 05/29/18 05/29/18 Range/Units 07:27 11:40 16:13 WBC (4.0-11.0) th/mm3 RBC (4.00-5.30) mil/mm3 Hgb (11.6-15.3) gm/dL Hct (35.0-46.0) % MCV (80.0-100.0) fL MCH (27.0-34.0) pg MCHC (32.0-36.0) % RDW (11.6-17.2) % Plt Count (150-450) th/mm3 MPV (7.0-11.0) fL Neut % (Auto) (16.0-70.0) % Lymph % (Auto) (9.0-44.0) % Howard % (Auto) (0.0-8.0) % Eos % (Auto) (0.0-4.0) % Baso % (Auto) (0.0-2.0) % Neut # (Auto) (1.8-7.7) th/mm3 Lymph # (Auto) (1.0-4.8) th/mm3 Howard # (Auto) (0.0-0.9) th/mm3 Eos # (Auto) (0.0-0.4) th/mm3 Baso # (Auto) (0.0-0.2) th/mm3 WBC Differential Differential Comment PT (9.8-11.6) sec INR Ratio Sodium (136-145) meq/L Potassium (3.5-5.1) meq/L Chloride (98-107) meq/L Carbon Dioxide (21.0-32.0) meq/L Anion Gap (5-15) meq/L BUN (7-18) mg/dL Creatinine (0.50-1.00) mg/dL Estimated GFR (>89) mL/min POC Glucose 95 133 H 116 H (68-110) mg/dl Random Glucose (74-106) mg/dL Hemoglobin A1c (4.3-6.0) % Calcium (8.5-10.1) mg/dL Total Bilirubin (0.2-1.0) mg/dL AST (15-37) U/L ALT (10-53) U/L Alkaline Phosphatase (45-117) U/L Ammonia (11-32) mcmol/L Total Protein (6.4-8.2) g/dL Albumin (3.4-5.0) g/dL Triglycerides (42-150) mg/dL Cholesterol (120-200) mg/dL LDL Cholesterol, Calc (0-99) mg/dL HDL Cholesterol (40.0-60.0) mg/dL Cholesterol/HDL Ratio Ratio Vitamin B12 (193-986) pg/mL TSH (0.358-3.740) uIU/mL Urine Color (Yellw/Straw) Urine Clarity (Clear) Urine pH (5.0-8.5) Ur Specific [place] (1.002-1.035) Urine Protein (Neg-Trace) mg/dL Urine Glucose (UA) (Negative) mg/dL Urine Ketones (Negative) mg/dL Urine Occult Blood (Negative) Urine Nitrate (Negative) Urine Bilirubin (Negative) Urine Urobilinogen (Less than 2) mg/dL Ur Leukocyte Esterase (Negative) Urine RBC (0-3) /hpf Urine WBC (0-5) /hpf Hyaline Casts (0-3) /lpf Urine Mucus (Occasional) /lpf Micro UA Comment Ur Microscopic Review Urine Culture Comments 05/29/18 05/30/18 05/30/18 Range/Units 20:20 08:00 11:34 WBC (4.0-11.0) th/mm3 RBC (4.00-5.30) mil/mm3 Hgb (11.6-15.3) gm/dL Hct (35.0-46.0) % MCV (80.0-100.0) fL MCH (27.0-34.0) pg MCHC (32.0-36.0) % RDW (11.6-17.2) % Plt Count (150-450) th/mm3 MPV (7.0-11.0) fL Neut % (Auto) (16.0-70.0) % Lymph % (Auto) (9.0-44.0) % Howard % (Auto) (0.0-8.0) % Eos % (Auto) (0.0-4.0) % Baso % (Auto) (0.0-2.0) % Neut # (Auto) (1.8-7.7) th/mm3 Lymph # (Auto) (1.0-4.8) th/mm3 Howard # (Auto) (0.0-0.9) th/mm3 Eos # (Auto) (0.0-0.4) th/mm3 Baso # (Auto) (0.0-0.2) th/mm3 WBC Differential Differential Comment PT (9.8-11.6) sec INR Ratio Sodium (136-145) meq/L Potassium (3.5-5.1) meq/L Chloride (98-107) meq/L Carbon Dioxide (21.0-32.0) meq/L Anion Gap (5-15) meq/L BUN (7-18) mg/dL Creatinine (0.50-1.00) mg/dL Estimated GFR (>89) mL/min POC Glucose 144 H 115 H 156 H (68-110) mg/dl Random Glucose (74-106) mg/dL Hemoglobin A1c (4.3-6.0) % Calcium (8.5-10.1) mg/dL Total Bilirubin (0.2-1.0) mg/dL AST (15-37) U/L ALT (10-53) U/L Alkaline Phosphatase (45-117) U/L Ammonia (11-32) mcmol/L Total Protein (6.4-8.2) g/dL Albumin (3.4-5.0) g/dL Triglycerides (42-150) mg/dL Cholesterol (120-200) mg/dL LDL Cholesterol, Calc (0-99) mg/dL HDL Cholesterol (40.0-60.0) mg/dL Cholesterol/HDL Ratio Ratio Vitamin B12 (193-986) pg/mL TSH (0.358-3.740) uIU/mL Urine Color (Yellw/Straw) Urine Clarity (Clear) Urine pH (5.0-8.5) Ur Specific [place] (1.002-1.035) Urine Protein (Neg-Trace) mg/dL Urine Glucose (UA) (Negative) mg/dL Urine Ketones (Negative) mg/dL Urine Occult Blood (Negative) Urine Nitrate (Negative) Urine Bilirubin (Negative) Urine Urobilinogen (Less than 2) mg/dL Ur Leukocyte Esterase (Negative) Urine RBC (0-3) /hpf Urine WBC (0-5) /hpf Hyaline Casts (0-3) /lpf Urine Mucus (Occasional) /lpf Micro UA Comment Ur Microscopic Review Urine Culture Comments Imaging Data Radiologist's impression: Head CT 05/27/18 18:21 CONCLUSION: 1. No acute findings in the brain. 2. Chronic ischemic changes stable from prior. . Chest X-Ray 05/27/18 18:40 CONCLUSION: Stable cardiomegaly without radiographic evidence of infiltrate or congestive heart failure. Head MRA 05/28/18 06:57 CONCLUSION: 1. Negative MRA [place] ([place]) non contrast. Specifically, no evidence for large vessel occlusion. Neck MRA 05/28/18 06:57 CONCLUSION: No significant abnormality in the neck arterial vasculature. _ Percent stenosis is calculated using the diameter of the stenotic region over the diameter of the normal distal internal carotid artery _ Head MRI 05/28/18 06:58 CONCLUSION: 1. No acute intracranial abnormality is identified. There are no findings to indicate recent ischemia. 2. Chronic findings include generalized atrophy and moderate severity chronic white matter changes. Discharge Plan Discharge Disposition Patient Disposition: 30 Still Patient Discharge Condition Condition: Stable Discharge Order Discharge Orders: Discharge Order (Routine); Ordered 05/30/18 Ordered By: Oli Madrid Discharge Details Diagnosis: Dysphasia, Nausea & vomiting Physicians Team ED Provider: Cele Atwood ED Midlevel Provider: Sofie Farias Primary Care Provider: Gaurav Jeff Attending Provider: Oli Madrid Other Providers: Thomas Harris ; Anna Fish ; [employer] ; [facility],Agency Status ED Status: Left Department Discharge Information Discharge Date/Time: 05/27/18 22:48
[2018-05-27 19:02] LABS: Baso # (Auto) 0.1 th/mm3 (0.0-0.2); Baso % (Auto) 0.5 % (0.0-2.0); Eos % (Auto) 0.1 % (0.0-4.0); Hemoglobin 12.6 gm/dL (11.6-15.3); Lymph % (Auto) 8.8 % (9.0-44.0); Mean Corpuscular HGB Conc 32.4 % (32.0-36.0); Mean Corpuscular Hemoglobin 29.8 pg (27.0-34.0); Mean Corpuscular Volume 91.9 fL (80.0-100.0); Mean Platelet Volume 9.3 fL (7.0-11.0); Mono # (Auto) 0.2 th/mm3 (0.0-0.9); Mono % (Auto) 2.1 % (0.0-8.0); Neut # (Auto) 9.7 th/mm3 (1.8-7.7); Neut % (Auto) 88.5 % (16.0-70.0); Platelet Count 205 th/mm3 (150-450); Red Blood Count 4.24 mil/mm3 (4.00-5.30); Red Cell Distribution Width 16.5 % (11.6-17.2)
--- NOTE | 2018-05-27 19:04 | CT ---
EXAM DATE: 05/27/2018 6:28 PM EDT AGE/SEX: 77 years / Female INDICATIONS: Altered mental status. CLINICAL DATA: This is the patient's initial encounter. Patient reports that signs and symptoms have been present for 1 day and indicates a pain score of 0/10. MEDICAL/SURGICAL HISTORY: Cardiovascular disease. Cerebrovascular disease. Pacemaker. RADIATION DOSE: 56.35 CTDI (mGy) COMPARISON: [facility] [place], CT BRAIN W/O CONTRAST, 01/22/2018. . TECHNIQUE: CT of the head without contrast. Using automated exposure control and adjustment of the mA and/or kV according to patient size, radiation dose was kept as low as reasonably achievable to ob tain optimal diagnostic quality images. DICOM format image data is available electronically for revi ew and comparison. FINDINGS: Cerebrum: Chronic findings with moderate dilation of the ventricles and sulci, hypoattenuation of th e supratentorial white matter, lacunar infarcts in the both striatum and left centrum semiovale; the appearance is unchanged from prior CT December 2017. No evidence of acute blood products, mass effect, or extra-axial fluid. Posterior Fossa: The cerebellum and brainstem are intact. The 4th ventricle is midline. The cerebe llopontine angle is unremarkable. Extracranial: The visualized portion of the orbits is intact. Skull: The calvaria is intact. No evidence of skull fracture. CONCLUSION: 1. No acute findings in the brain. 2. Chronic ischemic changes stable from prior. . Electronically signed by: Ignacio Wiseman MD 05/27/2018 7:03 PM EDT
[2018-05-27 19:12] LABS: INR 1.1 Ratio; Prothrombin Time 11.5 sec (9.8-11.6)
[2018-05-27 19:19] LABS: Albumin 4.2 g/dL (3.4-5.0); Anion Gap 10 meq/L (5-15); Aspartate Aminotransferase 28 U/L (15-37); Blood Urea Nitrogen 32 mg/dL (7-18); Calcium 9.9 mg/dL (8.5-10.1); Carbon Dioxide 24.1 meq/L (21.0-32.0); Chloride 107 meq/L (98-107); Glomerular Filtration Rate 28 mL/min (>89); Glucose,Random 142 mg/dL (74-106); Potassium 4.3 meq/L (3.5-5.1); Sodium 141 meq/L (136-145)
[2018-05-27 19:20] LABS: Alanine Aminotransferase 35 U/L (10-53)
[2018-05-27 19:23] LABS: Alkaline Phosphatase 102 U/L (45-117); Total Protein 7.4 g/dL (6.4-8.2)
[2018-05-27] MEDS ORDERED: Dextrose 50% in Water 50 ML Vial IV.PUSH PRN (21:21)
[2018-05-27] MEDS: Sod Chloride 0.9% Inj 1,000 ML IV.CONT SCH (21:54)
--- NOTE | 2018-05-27 22:27 | ECG ---
Date Performed: 05/27/2018 Time Performed: 18:42:06 PTAGE: 77 years EKG: ELECTRONIC VENTRICULAR PACEMAKER ABNORMAL RHYTHM ECG PREVIOUS TRACING : 01/22/2018 07.45 Since the previous tracing, no significant change noted DOCTOR: Prosper Mills Interpretating Date/Time 05/27/2018 22:25:43
--- NOTE | 2018-05-27 23:39 | P.HPIM ---
History of Present Illness Primary Care Physician: Gaurav Jeff History of Present Illness: 77-year-old female with a history of hypertension, CHF, atrial fibrillation status post pacemaker, CVA who presents from SNF secondary to nausea, vomiting, diarrhea started around 3 PM, however is also found to be aphasic. Patient herself is a poor historian. History is obtained from chart review and discussion with the ER physician. ER physician reports family saying this is new. Patient tells me she is at [facility], however cannot tell me the date or the year, kept saying [facility]. Inpatient Certification: I certify that the inpatient services were ordered in accordance with Medicare regulations governing the order. This includes certification that hospital inpatient services are reasonable and necessary and in the case of services not specified as inpatient-only under 42 CFR 419.22(n), that they are appropriately provided as inpatient services in accordance to with the 2-midnight benchmark under 43 CFR 412.3(e) Estimated Total Length of Stay (Days): 2 Plans for Post Hospital Care: SNF Review of Systems All other systems reviewed negative except as stated in HPI PMFSH - History History Provided By: Patient - Medical History Medical History: Medical History (Last Updated 05/27/18 @ 18:18 by Estelita Coombs RN) Afib Pacemaker Stroke - Family History Family History: Family History (Last Updated 05/27/18 @ 23:30 by Kranthi Lozada MD) Mother Hypertension Colon cancer - Tobacco History Second Hand Smoke Exposure: No Smoking Status: Never smoker - Alcohol History How Often Do You Have a Drink Containing Alcohol: Never - Substance Use History Substance History: No History of Abuse - Travel History Recent Travel Out of the Country Within the Last 8 Weeks: No - Immunization History Tetanus Immunization: Unsure Hx Influenza Vaccine This Season: Unable to Assess Medications and Allergies Active Medications: Active Medications Aspirin (Aspirin Chew) 81 mg PO DAILY [facility] Atorvastatin Calcium (Lipitor) 40 mg PO DAILY [facility] Dextrose (D50w Vial) 50 ml IV.PUSH UNSCH PRN PRN Reason: PER HYPOGLYCEMIA PROTOCOL Diltiazem HCl (Cardizem Cd 24hr) 120 mg PO DAILY [facility] Glucagon (Glucagon Inj) 1 mg OTHER UNSCH PRN PRN Reason: for Hypoglycemia Protocol Sodium Chloride (Ns Inj) 1,000 mls @ 70 mls/hr IV.CONT .[id number] [facility] Last Admin: 05/27/18 21:54 Dose: 70 mls/hr Sodium Chloride (Ns Flush) 2 ml IV.FLUSH BID [facility] Sodium Chloride (Ns Flush) 2 ml IV.FLUSH PRN PRN PRN Reason: FLUSH AFTER USING IV ACCESS Vitamin D (Vitamin D3) 5,000 unit PO DAILY [facility] Allergies Allergy/AdvReac Type Severity Reaction Status Date / Time No Known Allergies Allergy Unknown none Uncoded 05/27/18 20:59 Home Medications Medication Instructions Recorded Confirmed Type apixaban [Eliquis] 5 mg PO BID 05/27/18 05/27/18 History atorvastatin 40 mg PO DAILY 05/27/18 05/27/18 History cholecalciferol (vitamin D3) 5,000 unit PO DAILY 05/27/18 05/27/18 History [Vitamin D3] clonidine HCl 2 mg PO BID 05/27/18 05/27/18 History diltiazem HCl [DILT-XR] 120 mg PO DAILY 05/27/18 05/27/18 History ferrous sulfate 325 mg PO DAILY 05/27/18 05/27/18 History furosemide 20 mg PO DAILY 05/27/18 05/27/18 History omega 5-yyz-flt-fish oil [Fish Oil] 1,000 mg PO DAILY 05/27/18 05/27/18 History potassium chloride 10 meq PO DAILY 05/27/18 05/27/18 History Exam Vital signs: Vital Signs 05/27/18 18:07 05/27/18 18:19 05/27/18 19:12 Temperature Pulse Rate 70 70 60 Respiratory Rate 12 16 Blood Pressure 179/94 H 160/88 H 133/72 Pulse Oximetry 96 98 97 05/27/18 21:30 05/27/18 21:35 05/27/18 22:00 Temperature Pulse Rate 62 64 62 Respiratory Rate 16 16 16 Blood Pressure 127/72 127/72 123/61 Pulse Oximetry 96 98 05/27/18 22:32 Temperature 97.9 F Pulse Rate 65 Respiratory Rate 16 Blood Pressure 183/88 H Pulse Oximetry 98 Intake & Output 05/27/18 05/27/18 05/28/18 06:59 18:59 06:59 Intake Total 250 / 250 Balance 250 / 250 Weight 65.771 kg Intake: IV 250 / 250 NS Inj 1,000 ML @ 125 mls/hr IV 250 / 250 .CONT .Q8H [facility] Rx#:[id number] Narrative: GENERAL: Patient lying flat in bed. Appears comfortable. Oriented to place, not to year or date. Aphasic with significant word finding difficulty. SKIN: Warm and dry. HEAD: Atraumatic. Normocephalic. EYES: Pupils equal and round. No scleral icterus. No injection or drainage. ENT: No nasal bleeding or discharge. Mucous membranes pink and moist. NECK: Trachea midline. No JVD. CARDIOVASCULAR: Regular rate and rhythm. RESPIRATORY: No accessory muscle use. Clear to auscultation. Breath sounds equal bilaterally. GASTROINTESTINAL: Abdomen soft, non-tender, nondistended. Hepatic and splenic margins not palpable. MUSCULOSKELETAL: Extremities without clubbing, cyanosis, or edema. No obvious deformities. NEUROLOGICAL: Awake and alert. Patient does appear to have 4-5 strength on the left upper extremity, 5 out of 5 strength bilateral lower extremities. Obeys commands. PSYCHIATRIC: Appropriate mood and affect Results - Labs CBC & Chem 7: 05/27/18 18:30 05/27/18 18:30 Labs: Short CBC 05/27/18 Range/Units 18:30 WBC 11.0 (4.0-11.0) th/mm3 Hgb 12.6 (11.6-15.3) gm/dL Hct 39.0 (35.0-46.0) % Plt Count 205 (150-450) th/mm3 BMP 05/27/18 18:30 Sodium 141 Potassium 4.3 Chloride 107 Carbon Dioxide 24.1 BUN 32 H Creatinine 1.77 H Calcium 9.9 Liver Function 05/27/18 Range/Units 18:30 Total Bilirubin 0.4 (0.2-1.0) mg/dL AST 28 (15-37) U/L ALT 35 (10-53) U/L Alkaline Phosphatase 102 (45-117) U/L Albumin 4.2 (3.4-5.0) g/dL - Imaging Impressions Head CT 05/27/18 18:21 CONCLUSION: 1. No acute findings in the brain. 2. Chronic ischemic changes stable from prior. . Caprini VTE Risk Assessment Caprini VTE Risk Assessment: Moderate/High Risk (score >= 2) Caprini Risk Assessment Model: Point Value = 1 Point Value = 2 Point Value = 3 Point Value = 5 Age 41-60 Minor surgery BMI > 25 kg/m2 Swollen legs Varicose veins or History of unexplained or recurrent spontaneous Oral contraceptives or hormone replacement Sepsis (< 1 month) Serious lung disease, including pneumonia (< 1 month) Abnormal pulmonary function Acute myocardial infarction Congestive heart failure (< 1 month) History of inflammatory bowel disease Medical patient at bed rest Age 61-74 Arthroscopic surgery Major open surgery (> 45 min) Laparoscopic surgery (> 45 min) Malignancy Confined to bed (> 72 hours) Immobilizing plaster cast Central venous access Age >= 75 History of VTE Family history of VTE Factor V Leiden Prothrombin [id number] Lupus anticoagulant Anticardiolipin antibodies Elevated serum homocysteine Heparin-induced thrombocytopenia Other congenital or acquired thrombophilia Stroke (< 1 month) Elective arthroplasty Hip, pelvis, or leg fracture Acute spinal cord injury (< 1 month) Prophylaxis Regimen: Total Risk Factor Score Risk Level Prophylaxis Regimen 0-1 Low Early ambulation 2 Moderate Order ONE of the following: *Sequential Compression Device (SCD) *Heparin 5000 units SQ BID 3-4 Higher Order ONE of the following medications: *Heparin 5000 units SQ TID *Enoxaparin/Lovenox 40 mg SQ daily (WT < 150 kg, CrCl > 30 mL/min) *Enoxaparin/Lovenox 30 mg SQ daily (WT < 150 kg, CrCl > 10-29 mL/min) *Enoxaparin/Lovenox 30 mg SQ BID (WT < 150 kg, CrCl > 30 mL/min) AND/OR *Sequential Compression Device (SCD) 5 or more Highest Order ONE of the following medications: *Heparin 5000 units SQ TID (Preferred with Epidurals) *Enoxaparin/Lovenox 40 mg SQ daily (WT < 150 kg, CrCl > 30 mL/min) *Enoxaparin/Lovenox 30 mg SQ daily (WT < 150 kg, CrCl > 10-29 mL/min) *Enoxaparin/Lovenox 30 mg SQ BID (WT < 150 kg, CrCl > 30 mL/min) AND *Sequential Compression Device (SCD) Assessment and Plan - Plan //Suspected acute ischemic stroke = Head of bed flat. Permissive hypertension. Neuro checks. = Gram ordered and pending. = We will hold off on apixaban for now, expect to restart when approved by neurology. = Speech therapy evaluation. = Imaging ordered by neurology. Appreciate assistance. Follow-up neurology recommendations. //Nausea vomiting and diarrhea. = No abdominal tenderness on exam. = C. difficile ordered and pending. //History of atrial fibrillation with pacer placement We will continue diltiazem. //Hypertension. Permissive hypertension. We will hold off on clonidine Discussed Condition With: Patient, nurse, ED physician.
--- NOTE | 2018-05-27 23:57 | XR ---
EXAM DATE: 05/27/2018 6:40 PM EDT AGE/SEX: 77 years / Female INDICATIONS: Short of breath. CLINICAL DATA: This is the patient's initial encounter. Patient reports that signs and symptoms have been present for 1 day and indicates a pain score of 0/10. MEDICAL/SURGICAL HISTORY: Cardiovascular disease. Pacemaker. COMPARISON: [facility] – [place], 01/22/2018. . FINDINGS: Cardiomegaly stable from prior. The lungs are symmetrically aerated and clear. Both hemidiaphragms we ll delineated. Cardiac pacer with one lead, stable. CONCLUSION: Stable cardiomegaly without radiographic evidence of infiltrate or congestive heart failure. Electronically signed by: Ignacio Wiseman MD 05/27/2018 11:56 PM EDT
[2018-05-28 05:45] LABS: Chol/HDL Ratio 1.88 Ratio; HDL Cholesterol 67.4 mg/dL (40.0-60.0)
[2018-05-28] MEDS: dilTIAZem CD 120 MG Capsule PO SCH (08:05)
--- NOTE | 2018-05-28 08:45 | P.CONNEU ---
History of Present Illness Service: Neurology Primary Care Provider: Gaurav Jeff Chief Complaint: Possible stroke History of Present Illness: 77-year-old female admitted for possible slurred speech and abdominal complaints. Abdominal complaints of resolved. Limited endorsement of any slurred speech symptoms. Patient is overall a poor historian. She is limited history of any weakness or headache. States that a previous stroke but no residuals. States she lives alone has a couple daughters 11 state couple of other children live in [place]. She takes Eliquis twice a day and has been compliant with the medication. MRI brain scan negative for any acute stroke. Vessel imaging negative as well. Review of Systems All other systems reviewed negative except as stated in HPI PMFSH - History History Provided By: Patient - Medical History Medical History: Medical History (Last Reviewed 05/28/18 @ 13:18 by Oly Wynn) Afib Pacemaker Stroke - Family History Family History: Family History (Last Reviewed 05/28/18 @ 13:18 by Oly Wynn) Mother Hypertension Colon cancer - Tobacco History Second Hand Smoke Exposure: No Tobacco Use In Past 30 Days: No Smoking Status: Never smoker - Alcohol History How Often Do You Have a Drink Containing Alcohol: Never - Substance Use History Substance History: No History of Abuse - Travel History Recent Travel Out of the Country Within the Last 8 Weeks: No - Immunization History Tetanus Immunization: Unsure Hx Influenza Vaccine This Season: Unable to Assess Medications and Allergies Active Medications: Active Medications Aspirin (Aspirin Chew) 81 mg PO DAILY [facility] Last Admin: 05/28/18 08:04 Dose: 81 mg Atorvastatin Calcium (Lipitor) 40 mg PO DAILY [facility] Last Admin: 05/28/18 08:04 Dose: 40 mg Dextrose (D50w Vial) 50 ml IV.PUSH UNSCH PRN PRN Reason: PER HYPOGLYCEMIA PROTOCOL Diltiazem HCl (Cardizem Cd 24hr) 120 mg PO DAILY [facility] Last Admin: 05/28/18 08:05 Dose: 120 mg Glucagon (Glucagon Inj) 1 mg OTHER UNSCH PRN PRN Reason: for Hypoglycemia Protocol Sodium Chloride (Ns Inj) 1,000 mls @ 70 mls/hr IV.CONT .[id number] [facility] Last Infusion: 05/28/18 07:55 Dose: 0 mls/hr Sodium Chloride (Ns Flush) 2 ml IV.FLUSH BID [facility] Last Admin: 05/28/18 08:05 Dose: 2 ml Sodium Chloride (Ns Flush) 2 ml IV.FLUSH PRN PRN PRN Reason: FLUSH AFTER USING IV ACCESS Vitamin D (Vitamin D3) 5,000 unit PO DAILY [facility] Last Admin: 05/28/18 08:05 Dose: 5,000 unit Allergies Allergy/AdvReac Type Severity Reaction Status Date / Time No Known Allergies Allergy Unknown none Uncoded 05/27/18 20:59 Home Medications Medication Instructions Recorded Confirmed Type apixaban [Eliquis] 5 mg PO BID 05/27/18 05/27/18 History atorvastatin 40 mg PO DAILY 05/27/18 05/27/18 History cholecalciferol (vitamin D3) 5,000 unit PO DAILY 05/27/18 05/27/18 History [Vitamin D3] clonidine HCl 2 mg PO BID 05/27/18 05/27/18 History diltiazem HCl [DILT-XR] 120 mg PO DAILY 05/27/18 05/27/18 History ferrous sulfate 325 mg PO DAILY 05/27/18 05/27/18 History furosemide 20 mg PO DAILY 05/27/18 05/27/18 History omega 8-gnv-wgs-fish oil [Fish Oil] 1,000 mg PO DAILY 05/27/18 05/27/18 History potassium chloride 10 meq PO DAILY 05/27/18 05/27/18 History lisinopril 40 mg PO DAILY 05/28/18 05/28/18 History metformin 500 mg PO DAILY 05/28/18 05/28/18 History Exam Vital signs: Vital Signs 05/27/18 18:07 05/27/18 18:19 05/27/18 19:12 Temperature Pulse Rate 70 70 60 Respiratory Rate 12 16 Blood Pressure 179/94 H 160/88 H 133/72 Pulse Oximetry 96 98 97 05/27/18 21:30 05/27/18 21:35 05/27/18 22:00 Temperature Pulse Rate 62 64 62 Respiratory Rate 16 16 16 Blood Pressure 127/72 127/72 123/61 Pulse Oximetry 96 98 05/27/18 22:32 05/28/18 00:00 05/28/18 04:00 Temperature 97.9 F 97.6 F Pulse Rate 65 79 73 Respiratory Rate 16 16 18 Blood Pressure 183/88 H 157/91 H 179/91 H Pulse Oximetry 98 95 96 05/28/18 04:30 Temperature 98.9 F Pulse Rate 82 Respiratory Rate 18 Blood Pressure 156/76 H Pulse Oximetry 98 Intake & Output 05/27/18 05/28/18 05/28/18 18:59 06:59 18:59 Intake Total 250 / 250 Balance 250 / 250 Weight 65.771 kg 70.2 kg Intake: IV 250 / 250 NS Inj 1,000 ML @ 125 mls/hr IV 250 / 250 .CONT .Q8H [facility] Rx#:[id number] Other: # Voids 1 Narrative: GENERAL: in NAD, SKIN: Warm and dry. HEAD: Atraumatic. Normocephalic. EYES: Pupils equal and round. No scleral icterus. ENT: No nasal bleeding or discharge. Mucous membranes pink and moist. NECK: Trachea midline. No JVD. CARDIOVASCULAR: Regular rate and paced rhythm. RESPIRATORY: No accessory muscle use. GASTROINTESTINAL: Abdomen soft, non-tender, nondistended. MUSCULOSKELETAL: Extremities without clubbing, cyanosis, or edema. No obvious deformities. NEUROLOGICAL: Awake and alert. No aphasia, oriented x 1-2, impaired short-term memory very mild dyskinetic movements at times fluent articulate, No facial asymmetry, OU 3-2mm, eomi, VFF, No drift, Motor grossly within normal limits. Five out of 5 muscle strength in the arms and legs. Tone normal in all 4 limbs, Sensory normal in all 4 extremities to pin, msr 1-2+ sym, no clonus, planterflexor, PSYCHIATRIC: Appropriate mood and affect; - Constitutional no acute distress - Routine HEENT Exam Head: Present: normocephalic Results - Labs CBC & Chem 7: 05/27/18 18:30 05/27/18 18:30 Labs: Laboratory Results - last 24 hr 05/27/18 05/27/18 05/27/18 18:30 18:30 18:30 WBC 11.0 RBC 4.24 Hgb 12.6 Hct 39.0 MCV 91.9 MCH 29.8 MCHC 32.4 RDW 16.5 Plt Count 205 MPV 9.3 Neut % (Auto) 88.5 H Lymph % (Auto) 8.8 L [place] % (Auto) 2.1 Eos % (Auto) 0.1 Baso % (Auto) 0.5 Neut # (Auto) 9.7 H Lymph # (Auto) 1.0 [place] # (Auto) 0.2 Eos # (Auto) 0.0 Baso # (Auto) 0.1 WBC Differential . Differential Comment Auto diff final PT 11.5 INR 1.1 Sodium 141 Potassium 4.3 Chloride 107 Carbon Dioxide 24.1 Anion Gap 10 BUN 32 H Creatinine 1.77 H Estimated GFR 28 L POC Glucose Random Glucose 142 H Calcium 9.9 Total Bilirubin 0.4 AST 28 ALT 35 Alkaline Phosphatase 102 Ammonia Total Protein 7.4 Albumin 4.2 Triglycerides Cholesterol LDL Cholesterol, Calc HDL Cholesterol Cholesterol/HDL Ratio 05/27/18 05/28/18 05/28/18 18:44 04:59 07:47 WBC RBC Hgb Hct MCV MCH MCHC RDW Plt Count MPV Neut % (Auto) Lymph % (Auto) [place] % (Auto) Eos % (Auto) Baso % (Auto) Neut # (Auto) Lymph # (Auto) [place] # (Auto) Eos # (Auto) Baso # (Auto) WBC Differential Differential Comment PT INR Sodium Potassium Chloride Carbon Dioxide Anion Gap BUN Creatinine Estimated GFR POC Glucose 114 H Random Glucose Calcium Total Bilirubin AST ALT Alkaline Phosphatase Ammonia Less than 10 L Total Protein Albumin Triglycerides 65 Cholesterol 127 LDL Cholesterol, Calc 47 HDL Cholesterol 67.4 H Cholesterol/HDL Ratio 1.88 - Imaging Impressions Head CT 05/27/18 18:21 CONCLUSION: 1. No acute findings in the brain. 2. Chronic ischemic changes stable from prior. . Chest X-Ray 05/27/18 18:40 CONCLUSION: Stable cardiomegaly without radiographic evidence of infiltrate or congestive heart failure. Review/Management - Diagnosis (1) Chronic arterial ischemic stroke Code(s): I69.30 - Unspecified sequelae of cerebral infarction Status: Acute Current Visit: Yes (2) Dysphasia Code(s): R47.02 - Dysphasia Status: Acute Current Visit: Yes (3) Nausea & vomiting Code(s): R11.2 - Nausea with vomiting, unspecified Status: Acute Current Visit: Yes (4) Hypertension Code(s): I10 - Essential (primary) hypertension Status: Acute Current Visit : Yes (5) Cognitive impairment Code(s): R41.89 - Other symptoms and signs involving cognitive functions and awareness Status: Acute Current Visit: Yes - Review/Management Plan: Questionable TIA May be developing cognitive impairment Recommendations continue Eliquis EEG Blood pressure control Therapy eval Follow exam Behavioral modification and risk factor reduction. Weight loss, blood pressure control, blood sugar control, lipid control. Exercise (3) Nausea & vomiting Qualifiers: Vomiting type: unspecified Vomiting Intractability: non-intractable Qualified Code(s): R11.2 - Nausea with vomiting, unspecified
--- NOTE | 2018-05-28 09:46 | ECHRPT ---
Indication: CVA/TIA CONCLUSIONS Normal left ventricular size. Wall thickness is normal. The left ventricular systolic function is normal with an estimated ejection fraction in the range of 55-60%. No regional wall motion abnormalities are present. The left atrial size is mildly dilated. Slight aortic valve sclerosis is present. Trace aortic valve regurgitation. Mild mitral annular calcification is present. Mild mitral valve regurgitation. There is mild tricuspid valve regurgitation. The estimated systolic pulmonary pressure is 50 mm Hg. BP: / HR: Rhythm: Technical Quality: FINDINGS LEFT VENTRICLE Normal left ventricular size. Wall thickness is normal. The left ventricular systolic function is normal with an estimated ejection fraction in the range of 55-60%. No regional wall motion abnormalities are present. RIGHT VENTRICLE Normal right ventricular size and systolic function. LEFT ATRIUM The left atrial size is mildly dilated. RIGHT ATRIUM The right atrial size is normal. 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 AORTA The aortic root and proximal ascending aorta are normal in size on limited imaging. MITRAL VALVE Mild mitral annular calcification is present. Mild mitral valve regurgitation. AORTIC VALVE Slight aortic valve sclerosis is present. Trace aortic valve regurgitation. TRICUSPID VALVE There is mild tricuspid valve regurgitation. The estimated systolic pulmonary pressure is 50 mm Hg. PULMONARY VALVE The pulmonary valve is not well visualized. VESSELS The inferior vena cava is normal in size. PERICARDIUM No pericardial effusion. Tao Monahan MD (Electronically Signed) Final Date:28 May 2018 09:44
--- NOTE | 2018-05-28 12:42 | P.PN ---
Subjective Interval history: Follow-up for likely stroke. Patient is currently doing well. She denies any chest pain, shortness of breath, fever or chills. However she has persistent expressive dysphasia. Physical Exam Vital signs: Vital Signs 05/27/18 18:07 05/27/18 18:19 05/27/18 19:12 Temperature Pulse Rate 70 70 60 Respiratory Rate 12 16 Blood Pressure 179/94 H 160/88 H 133/72 Pulse Oximetry 96 98 97 05/27/18 21:30 05/27/18 21:35 05/27/18 22:00 Temperature Pulse Rate 62 64 62 Respiratory Rate 16 16 16 Blood Pressure 127/72 127/72 123/61 Pulse Oximetry 96 98 05/27/18 22:32 05/28/18 00:00 05/28/18 04:00 Temperature 97.9 F 97.6 F Pulse Rate 65 79 73 Respiratory Rate 16 16 18 Blood Pressure 183/88 H 157/91 H 179/91 H Pulse Oximetry 98 95 96 05/28/18 04:30 05/28/18 08:00 Temperature 98.9 F 98.1 F Pulse Rate 82 82 Respiratory Rate 18 20 Blood Pressure 156/76 H 181/87 H Pulse Oximetry 98 96 Intake & Output 05/27/18 05/28/18 05/28/18 18:59 06:59 18:59 Intake Total 250 / 250 Balance 250 / 250 Weight 65.771 kg 70.2 kg Intake: IV 250 / 250 NS Inj 1,000 ML @ 125 mls/hr IV 250 / 250 .CONT .Q8H [facility] Rx#:[id number] Other: # Voids 1 Narrative: GENERAL: Alert, NAD. Expressive dysphasia present. SKIN: Warm and dry. HEAD: Normocephalic. EYES: No scleral icterus. No injection or drainage. NECK: Supple, trachea midline. No JVD or lymphadenopathy. CARDIOVASCULAR: Regular rate and rhythm without murmurs, gallops, or rubs. RESPIRATORY: Breath sounds equal bilaterally. No accessory muscle use. GASTROINTESTINAL: Abdomen soft, non-tender, nondistended. MUSCULOSKELETAL: No cyanosis, or edema. BACK: Nontender without obvious deformity. No CVA tenderness. Results - Labs CBC & Chem 7: 05/27/18 18:30 05/27/18 18:30 Laboratory Results - last 24 hr 05/27/18 05/27/18 05/27/18 18:30 18:30 18:30 WBC 11.0 RBC 4.24 Hgb 12.6 Hct 39.0 MCV 91.9 MCH 29.8 MCHC 32.4 RDW 16.5 Plt Count 205 MPV 9.3 Neut % (Auto) 88.5 H Lymph % (Auto) 8.8 L [place] % (Auto) 2.1 Eos % (Auto) 0.1 Baso % (Auto) 0.5 Neut # (Auto) 9.7 H Lymph # (Auto) 1.0 [place] # (Auto) 0.2 Eos # (Auto) 0.0 Baso # (Auto) 0.1 WBC Differential . Differential Comment Auto diff final PT 11.5 INR 1.1 Sodium 141 Potassium 4.3 Chloride 107 Carbon Dioxide 24.1 Anion Gap 10 BUN 32 H Creatinine 1.77 H Estimated GFR 28 L POC Glucose Random Glucose 142 H Calcium 9.9 Total Bilirubin 0.4 AST 28 ALT 35 Alkaline Phosphatase 102 Ammonia Total Protein 7.4 Albumin 4.2 Triglycerides Cholesterol LDL Cholesterol, Calc HDL Cholesterol Cholesterol/HDL Ratio 05/27/18 05/28/18 05/28/18 18:44 04:59 07:47 WBC RBC Hgb Hct MCV MCH MCHC RDW Plt Count MPV Neut % (Auto) Lymph % (Auto) [place] % (Auto) Eos % (Auto) Baso % (Auto) Neut # (Auto) Lymph # (Auto) [place] # (Auto) Eos # (Auto) Baso # (Auto) WBC Differential Differential Comment PT INR Sodium Potassium Chloride Carbon Dioxide Anion Gap BUN Creatinine Estimated GFR POC Glucose 114 H Random Glucose Calcium Total Bilirubin AST ALT Alkaline Phosphatase Ammonia Less than 10 L Total Protein Albumin Triglycerides 65 Cholesterol 127 LDL Cholesterol, Calc 47 HDL Cholesterol 67.4 H Cholesterol/HDL Ratio 1.88 - Imaging Impressions Head CT 05/27/18 18:21 CONCLUSION: 1. No acute findings in the brain. 2. Chronic ischemic changes stable from prior. . Chest X-Ray 05/27/18 18:40 CONCLUSION: Stable cardiomegaly without radiographic evidence of infiltrate or congestive heart failure. Assessment and Plan - Plan 77-year-old female with a history of hypertension, CHF, atrial fibrillation status post pacemaker, CVA who presents from SNF secondary to nausea, vomiting, diarrhea started around 3 PM, however is also found to be aphasic. Probable acute stroke or TIA -Patient is currently on aspirin 81 mg daily daily, atorvastatin 40 mg daily. -Neurology is on board. Patient is a scheduled to undergo MRI studies. -Patient passed bedside swallow eval. Will start her on mechanical soft diet. Atrial fibrillation -Patient was on apixaban 5 mg p.o. twice daily. Currently not resumed. -Continue rate control medication diltiazem CD 120 mg daily. Continue telemetry. Hypertension -Currently will allow permissive hypertension. -We will start amlodipine 5 mg daily tonight or tomorrow morning. Full code. SCDs.
[2018-05-28] MEDS: Sod Chloride 0.9% Inj 1,000 ML IV.CONT SCH (12:44)
[2018-05-28 15:41] LABS: Hemoglobin A1c 6.4 % (4.3-6.0)
--- NOTE | 2018-05-28 15:56 | MR ---
EXAM DATE: 05/28/2018 6:57 AM EDT AGE/SEX: 77 years / Female INDICATIONS: Slurred speech. CLINICAL DATA: This is the patient's subsequent encounter. Patient reports that signs and symptoms h ave been present for 2 days and indicates a pain score of 0/10. MEDICAL/SURGICAL HISTORY: Hypertension. . Biotronic pacemaker, skin cancer removed [place] [facility] [place]. . TECHNIQUE: 3D fhgs-pp-hfebor MRA was performed. Source images, multiplanar STS MIP, and 3D volum e MIP reconstructions were reviewed. FINDINGS: Anterior Circulation: Intracranial Carotid Arteries: Patent. GONZALO: There is no evidence for aneurysm, vessel truncation or stenosis, and no evidence for vascular m alformation. MCA: There is no evidence for aneurysm, vessel truncation or stenosis, and no evidence for vascular m alformation. Posterior Circulation: Distal Vertebral Arteries: Distal Vertebral arteries are symetrical and patent. Basilar Artery: There is no evidence for aneurysm, vessel truncation or stenosis, and no evidence for vascular malformation. VISUAL C DEVELOPER and Cerebellar Branches: There is no evidence for aneurysm, vessel truncation or stenosis, and no evidence for vascular malformation. CONCLUSION: 1. Negative MRA Cow ([place]) non contrast. Specifically, no evidence for large vessel occl usion. Electronically signed by: Jhonny Coy MD 05/28/2018 3:54 PM EDT
--- NOTE | 2018-05-28 16:02 | MR ---
EXAM DATE: 05/28/2018 6:58 AM EDT AGE/SEX: 77 years / Female INDICATIONS: Slurred speech. CLINICAL DATA: This is the patient's subsequent encounter. Patient reports that signs and symptoms h ave been present for 2 days and indicates a pain score of 0/10. MEDICAL/SURGICAL HISTORY: Hypertension. . Biotronic pacemaker, skin cancer removed COMPARISON: [facility] [place], 05/27/2018. [facility] [place] BRAIN [place]/O CONTRAST, 01/22/2018. . TECHNIQUE: Multiplanar, multisequence examination of the brain was performed without contrast. FINDINGS: Cerebrum: There is mild generalized atrophy with ventricular size within normal limits given the degr ee of atrophy. No midline shift, mass lesion, hemorrhage or acute infarction. No extraaxial fluid c ollections are seen. The pituitary gland and suprasellar cistern are normal in configuration. White Matter: There is moderate periventricular and subcortical white matter signal change bilateral ly. Posterior Fossa: The cerebellum and brainstem demonstrate no acute abnormality. There is susceptibili ty artifact in the region of the midbrain bilaterally. The 4th ventricle is midline. The cerebellopo ntine angle is within normal limits. The cerebellar tonsils are normal in position. Diffusion Imaging: No areas of restricted diffusion are seen. Extracranial: There are mucous retention cysts within the maxillary antra bilaterally. CONCLUSION: 1. No acute intracranial abnormality is identified. There are no findings to indicate recent ischemi a. 2. Chronic findings include generalized atrophy and moderate severity chronic white matter changes. Electronically signed by: Suman Grey MD 05/28/2018 4:01 PM EDT
--- NOTE | 2018-05-28 16:17 | MR ---
EXAM DATE: 05/28/2018 6:57 AM EDT AGE/SEX: 77 years / Female INDICATIONS: . Slurred speech. CLINICAL DATA: This is the patient's subsequent encounter. Patient reports that signs and symptoms h ave been present for 2 days and indicates a pain score of 0/10. MEDICAL/SURGICAL HISTORY: Hypertension. . Biotronic pacemaker, skin cancer removed [place] [facility] [place]. . TECHNIQUE: 3D time-of- flight MRA of the extracranial circulation was performed using a neuroCurbed.comcul ar coil. Post processing was performed including rotating sub-volume maximum intensity projections o f each carotid artery, rotating full-volume maximum intensity projections of both carotid arteries, s agittal and coronal sliding thin-slab reformations of each carotid artery, and left oblique sliding t hin-slab reformation through the aortic arch to include the origin of the arch branch vessels. FINDINGS: Examination was performed as a noncontrast study. Therefore, image quality is less optimal than the contrast-enhanced carotid artery evaluation. Aortic Arch : There is a three-vessel origin of the great vessels from the aorta. No evidence of o stial narrowing. Right Carotid : Right common carotid artery demonstrates no significant narrowing and no dissection. Carotid bulb demonstrates no significant atherosclerotic plaque. Internal iliac artery also demonstr ates no significant stenosis. Left Carotid : Common carotid artery demonstrates no significant abnormality. Carotid bulb and inter nal carotid artery demonstrate no significant luminal narrowing. Vertebrals : Vertebral arteries are codominant. The proximal and distal aspects of the left vertebra l artery are not well visualized, likely related to technique given the appearance. CONCLUSION: No significant abnormality in the neck arterial vasculature. Percent stenosis is calculated using the diameter of the stenotic region over the diameter of the nor mal distal internal carotid artery Electronically signed by: Suman Grey MD 05/28/2018 4:15 PM EDT
[2018-05-28 21:17] LABS: Thyroid Stimulating Hormone 0.943 uIU/mL (0.358-3.740)
[2018-05-29 03:16] LABS: Bilirubin,Urine Negative (Negative); Clarity,Urine Clear (Clear); Color,Urine Yellow (Yellw/Straw); Glucose,Urine (UA) Negative (Negative); Hyaline Casts,Urine 12 /lpf (0-3); Leukocyte Esterase,Urine Negative (Negative); Mucus,Urine Few /lpf (Occasional); Nitrite,Urine Negative (Negative); Specific Gravity,Urine 1.015 (1.002-1.035)
[2018-05-29] MEDS: Sod Chloride 0.9% Inj 1,000 ML IV.CONT SCH ×2 (04:30→15:52)
[2018-05-29] MEDS: dilTIAZem CD 120 MG Capsule PO SCH (08:42)
[2018-05-29] MEDS ORDERED: amLODIPine 5 MG Tablet PO SCH (09:00)
--- NOTE | 2018-05-29 09:29 | P.PNNEU ---
Subjective Subjective Comments: No cp, no dyspnea, no arredondo, no focal weakness, no vision loss Daughter at bedside discussed with her Active Medications: Active Medications Amlodipine Besylate (Norvasc) 5 mg PO DAILY [facility] Last Admin: 05/29/18 08:42 Dose: 5 mg Atorvastatin Calcium (Lipitor) 40 mg PO DAILY [facility] Last Admin: 05/29/18 08:42 Dose: 40 mg Dextrose (D50w Vial) 50 ml IV.PUSH UNSCH PRN PRN Reason: PER HYPOGLYCEMIA PROTOCOL Diltiazem HCl (Cardizem Cd 24hr) 120 mg PO DAILY [facility] Last Admin: 05/29/18 08:42 Dose: 120 mg Glucagon (Glucagon Inj) 1 mg OTHER UNSCH PRN PRN Reason: for Hypoglycemia Protocol Sodium Chloride (Ns Inj) 1,000 mls @ 70 mls/hr IV.CONT .[id number] [facility] Last Admin: 05/29/18 04:30 Dose: 70 mls/hr Sodium Chloride (Ns Flush) 2 ml IV.FLUSH BID [facility] Last Admin: 05/29/18 08:42 Dose: 2 ml Sodium Chloride (Ns Flush) 2 ml IV.FLUSH PRN PRN PRN Reason: FLUSH AFTER USING IV ACCESS Vitamin D (Vitamin D3) 5,000 unit PO DAILY [facility] Last Admin: 05/29/18 08:42 Dose: 5,000 unit Allergies/Adverse Reactions: Allergies Allergy/AdvReac Type Severity Reaction Status Date / Time No Known Allergies Allergy Unknown none Uncoded 05/27/18 20:59 Review of Systems All other systems reviewed negative except as stated in HPI Physical Exam Vital signs: Vital Signs 05/28/18 12:00 05/28/18 16:00 05/28/18 20:00 Temperature 98.5 F 98.7 F 98.8 F Pulse Rate 73 77 82 Respiratory Rate 20 18 17 Blood Pressure 190/93 H 181/84 H 187/88 H Pulse Oximetry 96 99 98 05/29/18 00:00 05/29/18 04:00 Temperature 98.6 F 97.9 F Pulse Rate 76 88 Respiratory Rate 17 16 Blood Pressure 151/82 H 171/91 H Pulse Oximetry 96 97 Intake & Output 05/28/18 05/29/18 05/29/18 18:59 06:59 18:59 Intake Total 1240 / 1240 1900 / 1900 Balance 1240 / 1240 1900 / 1900 Weight 70.3 kg Intake: IV 1000 / 1000 1750 / 1750 NS Inj 1,000 ML @ 70 mls/hr IV. 1000 / 1000 1000 / 1000 CONT .[id number] [facility] Rx#:[id number] Oral 240 / 240 150 / 150 Other: # Voids 4 1 Date of Last Bowel Movement 05/27/18 # Bowel Movements 0 Narrative: GENERAL: in NAD, SKIN: Warm and dry. HEAD: Atraumatic. Normocephalic. EYES: Pupils equal and round. No scleral icterus. ENT: No nasal bleeding or discharge. Mucous membranes pink and moist. NECK: Trachea midline. No JVD. CARDIOVASCULAR: Regular rate and paced rhythm. RESPIRATORY: No accessory muscle use. GASTROINTESTINAL: Abdomen soft, non-tender, nondistended. MUSCULOSKELETAL: Extremities without clubbing, cyanosis, or edema. No obvious deformities. NEUROLOGICAL: Awake and alert. No aphasia, oriented x 2-3, no involuntary movements fluent articulate, No facial asymmetry, OU 3-2mm, eomi, VFF, No drift , Motor grossly within normal limits. Five out of 5 muscle strength in the arms and legs. Tone normal in all 4 limbs, gait not assessed secondary fall risk PSYCHIATRIC: Appropriate mood and affect; - Constitutional no acute distress - Routine HEENT Exam Head: Present: normocephalic Objective Laboratory Results - last 24 hr 05/28/18 05/28/18 05/28/18 04:59 04:59 13:06 POC Glucose 114 H Hemoglobin A1c 6.4 H Vitamin B12 445 TSH 0.943 Urine Color Urine Clarity Urine pH Ur Specific [place] Urine Protein Urine Glucose (UA) Urine Ketones Urine Occult Blood Urine Nitrate Urine Bilirubin Urine Urobilinogen Ur Leukocyte Esterase Urine RBC Urine WBC Hyaline Casts Urine Mucus Micro UA Comment Ur Microscopic Review Urine Culture Comments 05/28/18 05/28/18 05/29/18 16:39 21:48 02:56 POC Glucose 109 113 H Hemoglobin A1c Vitamin B12 TSH Urine Color Yellow Urine Clarity Clear Urine pH 6.0 Ur Specific [place] 1.015 Urine Protein 100 H Urine Glucose (UA) Negative Urine Ketones Negative Urine Occult Blood Small H Urine Nitrate Negative Urine Bilirubin Negative Urine Urobilinogen Less than 2 Ur Leukocyte Esterase Negative Urine RBC 3 Urine WBC 1 Hyaline Casts 12 Urine Mucus Few H Micro UA Comment Culture not ind Ur Microscopic Review Not Reportable Urine Culture Comments Culture not ind 05/29/18 07:27 POC Glucose 95 Hemoglobin A1c Vitamin B12 TSH Urine Color Urine Clarity Urine pH Ur Specific [place] Urine Protein Urine Glucose (UA) Urine Ketones Urine Occult Blood Urine Nitrate Urine Bilirubin Urine Urobilinogen Ur Leukocyte Esterase Urine RBC Urine WBC Hyaline Casts Urine Mucus Micro UA Comment Ur Microscopic Review Urine Culture Comments Review/Management - Diagnosis (1) Chronic arterial ischemic stroke Code(s): I69.30 - Unspecified sequelae of cerebral infarction Status: Acute Current Visit: Yes (2) Dysphasia Code(s): R47.02 - Dysphasia Status: Acute Current Visit: Yes (3) Nausea & vomiting Code(s): R11.2 - Nausea with vomiting, unspecified Status: Acute Current Visit: Yes (4) Hypertension Code(s): I10 - Essential (primary) hypertension Status: Acute Current Visit : Yes (5) Cognitive impairment Code(s): R41.89 - Other symptoms and signs involving cognitive functions and awareness Status: Acute Current Visit: Yes - Review/Management Plan: Questionable TIA May be developing cognitive impairment Recommendations continue Eliquis EEG; pending Blood pressure control Therapy eval Follow exam Behavioral modification and risk factor reduction. Weight loss, blood pressure control, blood sugar control, lipid control. Exercise Discharge planning after EEG no driving Discussed with patient and daughter (3) Nausea & vomiting Qualifiers: Vomiting type: unspecified Vomiting Intractability: non-intractable Qualified Code(s): R11.2 - Nausea with vomiting, unspecified
--- NOTE | 2018-05-29 15:35 | P.PN ---
Subjective Interval history: Follow-up TIA May 29, 2018-patient seen and examined alert and oriented x3, no acute event overnight. EEG report pending. Daughter by the bedside. Physical Exam Vital signs: Vital Signs 05/28/18 16:00 05/28/18 20:00 05/29/18 00:00 Temperature 98.7 F 98.8 F 98.6 F Pulse Rate 77 82 76 Respiratory Rate 18 17 17 Blood Pressure 181/84 H 187/88 H 151/82 H Pulse Oximetry 99 98 96 05/29/18 04:00 05/29/18 08:00 05/29/18 12:00 Temperature 97.9 F 98.2 F 98.4 F Pulse Rate 88 80 80 Respiratory Rate 16 16 14 Blood Pressure 171/91 H 168/98 H 118/78 Pulse Oximetry 97 94 L 97 Intake & Output 05/28/18 05/29/18 05/29/18 18:59 06:59 18:59 Intake Total 1240 / 1240 1900 / 1900 Balance 1240 / 1240 1900 / 1900 Weight 70.3 kg Intake: IV 1000 / 1000 1750 / 1750 NS Inj 1,000 ML @ 70 mls/hr IV. 1000 / 1000 1000 / 1000 CONT .[id number] [facility] Rx#:[id number] Oral 240 / 240 150 / 150 Other: # Voids 4 1 Date of Last Bowel Movement 05/27/18 # Bowel Movements 0 Narrative: GENERAL: NAD SKIN: Warm and dry. HEAD: Normocephalic. EYES: No scleral icterus. No injection or drainage. NECK: Supple, trachea midline. No JVD or lymphadenopathy. CARDIOVASCULAR: Regular rate and rhythm without murmurs, gallops, or rubs. RESPIRATORY: Breath sounds equal bilaterally. No accessory muscle use. GASTROINTESTINAL: Abdomen soft, non-tender, nondistended. MUSCULOSKELETAL: No cyanosis, or edema. BACK: Nontender without obvious deformity. No CVA tenderness. Results - Labs CBC & Chem 7: 05/27/18 18:30 05/27/18 18:30 Laboratory Results - last 24 hr 05/28/18 05/28/18 05/28/18 04:59 04:59 16:39 POC Glucose 109 Hemoglobin A1c 6.4 H Vitamin B12 445 TSH 0.943 Urine Color Urine Clarity Urine pH Ur Specific [place] Urine Protein Urine Glucose (UA) Urine Ketones Urine Occult Blood Urine Nitrate Urine Bilirubin Urine Urobilinogen Ur Leukocyte Esterase Urine RBC Urine WBC Hyaline Casts Urine Mucus Micro UA Comment Ur Microscopic Review Urine Culture Comments 05/28/18 05/29/18 05/29/18 21:48 02:56 07:27 POC Glucose 113 H 95 Hemoglobin A1c Vitamin B12 TSH Urine Color Yellow Urine Clarity Clear Urine pH 6.0 Ur Specific [place] 1.015 Urine Protein 100 H Urine Glucose (UA) Negative Urine Ketones Negative Urine Occult Blood Small H Urine Nitrate Negative Urine Bilirubin Negative Urine Urobilinogen Less than 2 Ur Leukocyte Esterase Negative Urine RBC 3 Urine WBC 1 Hyaline Casts 12 Urine Mucus Few H Micro UA Comment Culture not ind Ur Microscopic Review Not Reportable Urine Culture Comments Culture not ind 05/29/18 11:40 POC Glucose 133 H Hemoglobin A1c Vitamin B12 TSH Urine Color Urine Clarity Urine pH Ur Specific [place] Urine Protein Urine Glucose (UA) Urine Ketones Urine Occult Blood Urine Nitrate Urine Bilirubin Urine Urobilinogen Ur Leukocyte Esterase Urine RBC Urine WBC Hyaline Casts Urine Mucus Micro UA Comment Ur Microscopic Review Urine Culture Comments - Imaging Impressions Head MRA 05/28/18 06:57 CONCLUSION: 1. Negative MRA [place] ([place]) non contrast. Specifically, no evidence for large vessel occlusion. Neck MRA 05/28/18 06:57 CONCLUSION: No significant abnormality in the neck arterial vasculature. _ Percent stenosis is calculated using the diameter of the stenotic region over the diameter of the normal distal internal carotid artery _ Head MRI 05/28/18 06:58 CONCLUSION: 1. No acute intracranial abnormality is identified. There are no findings to indicate recent ischemia. 2. Chronic findings include generalized atrophy and moderate severity chronic white matter changes. Assessment and Plan - Plan 77-year-old female with Probable acute stroke or TIA -Patient is currently on aspirin 81 mg daily daily, atorvastatin 40 mg daily. -Neurology is on board. Brain MRI/MRA negative -EEG report pending -PT to treat and eval Atrial fibrillation -Resume apixaban 5 mg p.o. twice daily. -Continue rate control medication diltiazem CD 120 mg daily. Hypertension -Discontinue amlodipine 5 mg daily, resume outpatient medications Diabetes type 2 Hold oral metformin Start low insulin sliding scale Full code. SCDs.
[2018-05-29] MEDS ORDERED: Dextrose 50% in Water 50 ML Vial IV.PUSH PRN (15:36)
[2018-05-29] MEDS: Insulin NovoLOG Aspart Correctional Sugar Inj SQ SCH ×2 (16:22→21:30)
[2018-05-30] MEDS: Insulin NovoLOG Aspart Correctional Sugar Inj SQ SCH ×2 (08:21→13:00)
--- NOTE | 2018-05-30 08:40 | P.PNNEU ---
Subjective Subjective Comments: No cp, no dyspnea, no arredondo, no focal weakness, no vision loss Active Medications: Active Medications Apixaban (Eliquis) 5 mg PO BID [facility] Last Admin: 05/29/18 21:28 Dose: 5 mg Atorvastatin Calcium (Lipitor) 40 mg PO DAILY [facility] Last Admin: 05/29/18 08:42 Dose: 40 mg Dextrose (D50w Vial) 50 ml IV.PUSH UNSCH PRN PRN Reason: PER HYPOGLYCEMIA PROTOCOL Diltiazem HCl (Cardizem Cd 24hr) 120 mg PO DAILY [facility] Last Admin: 05/29/18 08:42 Dose: 120 mg Ferrous Sulfate (Ferosul) 325 mg PO DAILY [facility] Furosemide (Lasix) 20 mg PO DAILY [facility] Glucagon (Glucagon Inj) 1 mg OTHER PRN PRN PRN Reason: for Hypoglycemia Protocol Sodium Chloride (Ns Inj) 1,000 mls @ 70 mls/hr IV.CONT .[id number] [facility] Last Infusion: 05/29/18 18:58 Dose: 0 mls/hr Insulin Aspart (Novolog Insulin Correctional Sugar Inj) 0 unit SQ ACHS [facility]; Protocol Last Admin: 05/30/18 08:21 Dose: Not Given Lisinopril (Prinivil) 40 mg PO DAILY [facility] Sodium Chloride (Ns Flush) 2 ml IV.FLUSH BID [facility] Last Admin: 05/29/18 21:29 Dose: 2 ml Sodium Chloride (Ns Flush) 2 ml IV.FLUSH PRN PRN PRN Reason: FLUSH AFTER USING IV ACCESS Last Admin: 05/29/18 21:29 Dose: 2 ml Vitamin D (Vitamin D3) 5,000 unit PO DAILY [facility] Last Admin: 05/29/18 08:42 Dose: 5,000 unit Allergies/Adverse Reactions: Allergies Allergy/AdvReac Type Severity Reaction Status Date / Time No Known Allergies Allergy Unknown none Uncoded 05/27/18 20:59 Physical Exam Vital signs: Vital Signs 05/29/18 12:00 05/29/18 16:00 05/29/18 20:00 Temperature 98.4 F 98.3 F 99.5 F Pulse Rate 80 87 85 Respiratory Rate 14 18 16 Blood Pressure 118/78 158/80 H 160/88 H Pulse Oximetry 97 98 95 05/30/18 00:00 05/30/18 00:30 05/30/18 04:00 Temperature 98.7 F 98.5 F Pulse Rate 78 78 Respiratory Rate 14 16 Blood Pressure 168/95 H 158/68 H 166/89 H Pulse Oximetry 94 L 95 Intake & Output 05/29/18 05/30/18 05/30/18 18:59 06:59 18:59 Weight 70.3 kg Other: # Voids 2 1 Date of Last Bowel Movement 05/28/18 05/28/18 Narrative: GENERAL: in NAD, SKIN: Warm and dry. HEAD: Atraumatic. Normocephalic. EYES: Pupils equal and round. No scleral icterus. ENT: No nasal bleeding or discharge. Mucous membranes pink and moist. NECK: Trachea midline. No JVD. CARDIOVASCULAR: Regular rate and paced rhythm. RESPIRATORY: No accessory muscle use. GASTROINTESTINAL: Abdomen soft, non-tender, nondistended. MUSCULOSKELETAL: Extremities without clubbing, cyanosis, or edema. No obvious deformities. NEUROLOGICAL: Awake and alert. No aphasia, oriented x 2-3, no involuntary movements fluent articulate, No facial asymmetry, OU 3-2mm, eomi, VFF, No drift , Motor grossly within normal limits. Five out of 5 muscle strength in the arms and legs. Tone normal in all 4 limbs, gait not assessed secondary fall risk PSYCHIATRIC: Appropriate mood and affect; . - Constitutional no acute distress - Routine HEENT Exam Head: Present: normocephalic Objective Laboratory Results - last 24 hr 05/29/18 05/29/18 05/29/18 11:40 16:13 20:20 POC Glucose 133 H 116 H 144 H 05/30/18 08:00 POC Glucose 115 H Review/Management - Diagnosis (1) Chronic arterial ischemic stroke Code(s): I69.30 - Unspecified sequelae of cerebral infarction Status: Acute Current Visit: Yes (2) Dysphasia Code(s): R47.02 - Dysphasia Status: Acute Current Visit: Yes (3) Nausea & vomiting Code(s): R11.2 - Nausea with vomiting, unspecified Status: Acute Current Visit: Yes (4) Hypertension Code(s): I10 - Essential (primary) hypertension Status: Acute Current Visit : Yes (5) Cognitive impairment Code(s): R41.89 - Other symptoms and signs involving cognitive functions and awareness Status: Acute Current Visit: Yes - Review/Management Plan: Questionable TIA May be developing cognitive impairment Recommendations continue Eliquis EEG; pending Blood pressure control Therapy eval Follow exam Behavioral modification and risk factor reduction. Weight loss, blood pressure control, blood sugar control, lipid control. Exercise Discharge planning after EEG no driving Discharge from neurology standpoint (3) Nausea & vomiting Qualifiers: Vomiting type: unspecified Vomiting Intractability: non-intractable Qualified Code(s): R11.2 - Nausea with vomiting, unspecified
[2018-05-30] MEDS ORDERED: Lisinopril 20 MG Tablet PO SCH (09:00)
[2018-05-30] MEDS ORDERED: Ferrous Sulfate 325 MG Tablet PO SCH (09:00)
[2018-05-30] MEDS ORDERED: Furosemide 20 MG Tablet PO SCH (09:00)
[2018-05-30] MEDS: dilTIAZem CD 120 MG Capsule PO SCH (09:29)
[2018-05-30] MEDS: Sod Chloride 0.9% Inj 1,000 ML IV.CONT SCH (09:29)
--- NOTE | 2018-05-30 09:55 | P.PN ---
Subjective Interval history: Follow-up TIA May 29, 2018-patient seen and examined alert and oriented x3, no acute event overnight. EEG report pending. Daughter by the bedside. May 30, 2018-patient seen and examined, states she did have a good night sleep however denies any chest pain or shortness of breath. EEG report pending Physical Exam Vital signs: Vital Signs 05/29/18 12:00 05/29/18 16:00 05/29/18 20:00 Temperature 98.4 F 98.3 F 99.5 F Pulse Rate 80 87 85 Respiratory Rate 14 18 16 Blood Pressure 118/78 158/80 H 160/88 H Pulse Oximetry 97 98 95 05/30/18 00:00 05/30/18 00:30 05/30/18 04:00 Temperature 98.7 F 98.5 F Pulse Rate 78 78 Respiratory Rate 14 16 Blood Pressure 168/95 H 158/68 H 166/89 H Pulse Oximetry 94 L 95 Intake & Output 05/29/18 05/30/18 05/30/18 18:59 06:59 18:59 Weight 70.3 kg Other: # Voids 2 1 Date of Last Bowel Movement 05/28/18 05/28/18 Narrative: GENERAL: NAD, SKIN: Warm and dry. HEAD: Atraumatic. Normocephalic. EYES: Pupils equal and round. No scleral icterus. ENT: No nasal bleeding or discharge. Mucous membranes pink and moist. NECK: Trachea midline. No JVD. CARDIOVASCULAR: Regular rate and paced rhythm. RESPIRATORY: No accessory muscle use. GASTROINTESTINAL: Abdomen soft, non-tender, nondistended. MUSCULOSKELETAL: Extremities without clubbing, cyanosis, or edema. No obvious deformities. NEUROLOGICAL: Awake and alert. No aphasia, oriented x 2-3, no involuntary movements fluent articulate, No facial asymmetry, OU 3-2mm, eomi, VFF, No drift , Motor grossly within normal limits. Five out of 5 muscle strength in the arms and legs. Tone normal in all 4 limbs, gait not assessed secondary fall risk . Results - Labs CBC & Chem 7: 05/27/18 18:30 05/27/18 18:30 Laboratory Results - last 24 hr 05/29/18 05/29/18 05/29/18 11:40 16:13 20:20 POC Glucose 133 H 116 H 144 H 05/30/18 08:00 POC Glucose 115 H Assessment and Plan - Plan 77-year-old female with Probable acute stroke or TIA -Patient is currently on aspirin 81 mg daily daily, atorvastatin 40 mg daily. -Neurology is on board. Brain MRI/MRA negative -EEG report pending -PT to treat and eval Atrial fibrillation -Continue apixaban 5 mg p.o. twice daily. -Continue rate control medication diltiazem CD 120 mg daily. Hypertension -s/p amlodipine 5 mg daily, continue outpatient medications Diabetes type 2 Hold oral metformin Continue low insulin sliding scale Full code. SCDs.
[2018-05-30 10:25] VITALS: RESP 14; O2SAT 97
--- NOTE | 2018-05-30 10:47 | MG ---
cc: Balbir Jones MD EEG NUMBER: [id number] INDICATIONS: Hyperventilation not performed. Generalized atrophy. Atrial fibrillation. Stroke. MEDICATIONS: Lipitor. INTERPRETATION: A 9 Hz 60 microvolt posterior and diffuse rhythm is seen. No focal abnormalities are noted. No seizure activity is seen. Hyperventilation is not performed. Photic stimulation is performed without significant posterior driving. IMPRESSION: Normal awake electroencephalogram. No evidence for a focal or diffuse abnormality. Balbir Jones MD DJM/rs , 10:37 AM , 10:41 AM
--- NOTE | 2018-05-30 14:36 | P.DS ---
Date of admission: 05/27/18 21:21 Primary care physician: Gaurav Jeff Brief History from admission: 77-year-old female with a history of hypertension, CHF, atrial fibrillation status post pacemaker, CVA who presents from SNF secondary to nausea, vomiting, diarrhea started around 3 PM, however is also found to be aphasic. Patient herself is a poor historian. History is obtained from chart review and discussion with the ER physician. ER physician reports family saying this is new. Patient tells me she is at [facility], however cannot tell me the date or the year, kept saying [facility]. DS: Summary Hospital Course: While in hospital, patient was treated for: Probable acute stroke or TIA -Patient was treated with aspirin 81 mg daily daily, atorvastatin 40 mg daily. -Neurology is on board. Brain MRI/MRA negative -EEG negative -PT to treat and eval Atrial fibrillation -Treated with apixaban 5 mg p.o. twice daily. -Rate control on diltiazem CD 120 mg daily. Hypertension -s/p amlodipine 5 mg daily, continue outpatient medications Diabetes type 2 Resume oral metformin on discharge Continue low insulin sliding scale Full code. SCDs. - Time Spent with Patient Total time spent providing and/or coordinating discharge services: Greater than 30 minutes - Quality: VTE Deep Vein Thrombosis/Pulmonary Embolism Present on Admission: No Exam Vital signs: Vital Signs 05/29/18 16:00 05/29/18 20:00 05/30/18 00:00 Temperature 98.3 F 99.5 F 98.7 F Pulse Rate 87 85 78 Respiratory Rate 18 16 14 Blood Pressure 158/80 H 160/88 H 168/95 H Pulse Oximetry 98 95 94 L 05/30/18 00:30 05/30/18 04:00 05/30/18 08:00 Temperature 98.5 F 98.2 F Pulse Rate 78 75 Respiratory Rate 16 14 Blood Pressure 158/68 H 166/89 H 193/102 H Pulse Oximetry 95 97 Intake & Output 05/29/18 05/30/18 05/30/18 18:59 06:59 18:59 Weight 70.3 kg Other: # Voids 2 1 Date of Last Bowel Movement 05/28/18 05/28/18 05/28/18 Results Procedures completed during hospitalization: None Labs on day of discharge: Labs from last 24 hours 05/30/18 05/30/18 05/29/18 11:34 08:00 20:20 POC Glucose 156 H 115 H 144 H 05/29/18 16:13 POC Glucose 116 H - Impressions ITS Impressions Head CT 05/27/18 18:21 CONCLUSION: 1. No acute findings in the brain. 2. Chronic ischemic changes stable from prior. . Chest X-Ray 05/27/18 18:40 CONCLUSION: Stable cardiomegaly without radiographic evidence of infiltrate or congestive heart failure. Head MRA 05/28/18 06:57 CONCLUSION: 1. Negative MRA [place] ([place]) non contrast. Specifically, no evidence for large vessel occlusion. Neck MRA 05/28/18 06:57 CONCLUSION: No significant abnormality in the neck arterial vasculature. _ Percent stenosis is calculated using the diameter of the stenotic region over the diameter of the normal distal internal carotid artery _ Head MRI 05/28/18 06:58 CONCLUSION: 1. No acute intracranial abnormality is identified. There are no findings to indicate recent ischemia. 2. Chronic findings include generalized atrophy and moderate severity chronic white matter changes. Discharge Plan - Discharge Disposition Patient Disposition: 03 Discharge to SNF - Discharge Condition Condition: Stable - Discharge Order Discharge Orders: Discharge Order (Routine); Ordered 05/30/18 Ordered By: Oli Madrid - Physicians Team Primary Care Provider: Gaurav Jeff Attending Provider: Oli Madrid Other Providers: Thomas Harris MD ; Anna Fish MD ; [employer] ; [facility],[place]
[2018-05-30 15:25] VITALS: BP 145/86; PULSE 85; TEMP 98.5
--- NOTE | 2018-05-30 16:38 | HM ---
Date Performed: 05/28/2018 Time Performed: 18:59:00 HOOKUP DATE: 05/28/18 06:59:00 PM Wed ANALYSIS START TIME: 05/28/2018 7:04:00 PM ANALYSIS END TIME: 05/29/2018 4:38:00 PM PATIENT AGE: 77 PATIENT HEIGHT PATIENT WEIGHT DRUG LIST PATIENT DIAGNOSIS TEST NARRATIVE: The patient's average heart rate was 80 BPM. Heart rates greater than 120 B PM were noted 2% of the time. No episodes of bradycardia were noted. No pauses exceeding 2.0 sec onds were noted. 1699 ventricular ectopics, which represented 2% of the total beat count, were no juan. The highest ventricular ectopic frequency occurred from 03:00 PM to 04:00 PM [place]. During this time 119 VE(s) occurred. Ventricular ectopics were observed as 1659 isolated beat(s) and as 20 coupl et(s). No runs were noted. Some of the ventricular beats occurred in bigeminal cycles. 1229 sup raventricular ectopics, which represented 1% of the total beat count, were noted. The highest suprav entricular ectopic frequency occurred from 12:00 PM to 01:00 PM [place]. During this time 130 SVE(s) occ urred. In channel 1, a single episode of ST depression (defined as -1.0 mm or more) occurred at 0 1:11:26 PM [place] with a maximum depression of -1.6 mm. Multiple episodes of ST depression (defined as -1.0 mm or more) were noted in channel 2. The maximum depression of -2.5 mm occurred at 10:31:20 AM [place]. Multiple episodes of ST depression (defined as -1.0 mm or more) were noted in channel 3. The maximum depression of -2.2 mm occurred at 01:11:59 PM [place]. PATIENT DIARY WAS NOT RETURNED WITH WENDY R MONITOR. TEST INTERPRETATION: No diary was returned. No significant pauses are present. There is baseline artifact present. As best I can tell, the underlying rhythm is occasionally Sinus rhythm but appears to have atrial fibrillation or flutter with rapid response along with what may be a vent ricular paced rhythm. Occasional PVCs and couplets are probably present. Signed by : Soto Echeverria
== END 2018-05-30 18:00 ==
LOC: NEPE 18:00 → NEDA 18:00 → N05 22:14
PROVIDERS: ADMIT Hospitalist; ATTEND Hospitalist

== ENCOUNTER 2018-07-02 18:29 | Inpatient (IN) ==
--- NOTE | 2018-07-02 19:39 | ED ---
HPI General Chief Complaint: Altered Mental Status Stated Complaint: R side weakness Time Seen by Provider: 07/02/18 19:21 Source: patient Mode of arrival: EMS Limitations: no limitations History of Present Illness HPI Narrative: 77-year-old female presents to the emergency apartment from home by EMS transport after neighbor who was with her at the time noticed her to have altered speech confusion possible expressive aphasia and right-sided weakness. Patient reports about 3:30 PM this afternoon while playing cards she started noticing that her right hand was shaking while she was "holding 3 [place]". Patient states she had no change in her mentation had no headache had no visual disturbance had no double vision loss of vision or blurred vision had no difficulty with speaking had no difficulty swallowing no one mentioned a facial droop she did not notice any weakness affecting her left upper extremity or left lower extremity had no weakness affecting her right lower extremity and denied having any chest pain palpitations shortness of breath sweats nausea vomiting abdominal pain back pain mid scapular pain upper or lower extremity pain or numbness and no sensation of feeling faint or having fainted. There is no report of syncope or seizure activity per EMS. Reportedly upon EMS arrival patient NIH score was 0. Patient reports she was just here 3 weeks ago for a TIA and she thinks she had a TIA today. Patient states she has been here approximately 2 hours and in that timeframe all of her symptoms have resolved she is not certain as to the duration of the symptoms. Patient is currently prescribed Eliquis since her last hospitalization 3 weeks ago. Family member at bedside reports that she was not present but the neighbor reported altered mentation change in her speech and eye droop but she does not know which side but does report patient is back to her baseline. Granddaughter also reports that the patient shared with her that she did not awaken until 2 PM this afternoon because she has been tired since last evening. Family member also reports that patient did not take any of her medications for today because she was tired. Family member also reports that patient had episodes of dizziness on Saturday. Patient has history of hypertension, CHF, atrial fibrillation, pacemaker, CVA and recurrent TIAs. No tobacco use and no alcohol use. No recent fall or injury. Onset (ago): hour(s) Time: 03:45 Timing confirmed by: other (patient) Location: Reports speech (per ems report, per family member report--per neighbor ) and right arm ("shaking hand") History of same: Yes (3 weeks ago, negative acute abnormality by CT brain w/o ( chronic changes), MRI Brain, mra brain and neck) Severity: moderate Quality: Reports weak Relieving factors: time Exacerbating factors: none Context: Reports sudden onset On Anticoagulants: Yes (Eliquis) Associated symptoms: Denies confusion, chest pain, cough, diaphoresis, fever/ chills, headaches, loss of appetite, malaise, nausea/vomiting, vertigo, seizures , shortness of breath, syncope and weakness Treatments Prior to Arrival: Reports none Related Data Home Medications Medication Instructions Recorded Confirmed apixaban [Eliquis] 5 mg PO BID 05/27/18 07/02/18 atorvastatin 40 mg PO DAILY 05/27/18 07/02/18 cholecalciferol (vitamin D3) 5,000 unit PO DAILY 05/27/18 07/02/18 [Vitamin D3] clonidine HCl 0.2 mg PO BID 05/27/18 07/02/18 diltiazem HCl [DILT-XR] 120 mg PO DAILY 05/27/18 07/02/18 ferrous sulfate 325 mg PO DAILY 05/27/18 07/02/18 furosemide 20 mg PO DAILY 05/27/18 07/02/18 omega 1-tno-awl-fish oil [Fish Oil] 1,000 mg PO DAILY 05/27/18 07/02/18 potassium chloride 10 meq PO DAILY 05/27/18 07/02/18 lisinopril 40 mg PO DAILY 05/28/18 07/02/18 metformin 500 mg PO DAILY 05/28/18 07/02/18 Allergies Allergy/AdvReac Type Severity Reaction Status Date / Time No Known Allergies Allergy Verified 07/02/18 18:40 Review of Systems ROS: all other systems reviewed are negative [facility] Medical History Medical History Afib (Acute) Pacemaker (Acute) Stroke (Acute) TIA (transient ischemic attack) (Acute) Family History Family History Mother Hypertension Colon cancer Social History Social History Substance History: No History of Abuse Second Hand Smoke Exposure: No Smoking Status: Never smoker How Often Do You Have a Drink Containing Alcohol: Never Recent Travel in [facility] within the Last 8 Weeks: No Recent Out of Country Travel within the Last 8 Weeks: No Immunization History Tetanus Immunization: <5 Years Exam Narrative Exam Narrative: GENERAL: Well-developed well-nourished elderly female in no acute distress no respiratory distress conversant able to relay her own medical history GCS 15 SKIN: Focused skin assessment warm/dry. HEAD: Atraumatic. Normocephalic. EYES: Pupils equal and round. No scleral icterus. No injection or drainage. ENT: No nasal bleeding or discharge. Mucous membranes pink and moist. NECK: Trachea midline. No JVD. CARDIOVASCULAR: Regular rate and rhythm. No murmur appreciated. RESPIRATORY: No accessory muscle use. Clear to auscultation. Breath sounds equal bilaterally. GASTROINTESTINAL: Abdomen soft, non-tender, nondistended. Hepatic and splenic margins not palpable. MUSCULOSKELETAL: No obvious deformities. No clubbing. No cyanosis. No edema. NEUROLOGICAL: Awake and alert. No obvious cranial nerve deficits. Motor grossly within normal limits. No limb ataxia. No pronator drift. Normal speech. PSYCHIATRIC: Appropriate mood and affect; insight and judgment normal. Course Consultations Consultation #1: discussed with neurology solution design engineer Dr Watson Initial Documented Vital Signs Temperature 99.1 F 07/02/18 18:36 Pulse Rate 80 07/02/18 18:36 Respiratory Rate 20 07/02/18 18:36 Blood Pressure 196/77 H 07/02/18 18:36 Pulse Oximetry 99 07/02/18 18:36 Last Documented Vital Signs Temperature 99.1 F 07/02/18 18:36 Pulse Rate 70 07/02/18 23:02 Respiratory Rate 18 07/02/18 23:02 Blood Pressure 135/75 07/02/18 23:02 Pulse Oximetry 98 07/02/18 23:02 NIH Stroke Scale NIH Stroke Scale Level of Consciousness: 0-Alert Orientation Questions: 0-Answers both correct Responds to Commands: 0-Both tasks correct Gaze Eye Movement: 0-Horizontal movement WNL Visual Baum: 0-No visual field defect Facial Movement: 0-Normal Motor Functions Arm LEFT: 0-No drift Motor Functions Arm RIGHT: 0-No drift Motor Functions Leg LEFT: 0-No drift Motor Functions Leg RIGHT: 0-No drift Limb Ataxia: 0-No ataxia Sensory Loss: 0-No sensory loss Best Language: 0-Normal Articulation: 0-Normal Extinction or Inattention Sensory: 0-Absent Total: 0 Medical Decision Making MDM Narrative Medical decision making narrative: 77-year-old female with history of hypertension atrial fibrillation CVA recurrent TIAs presents to the emergency department after presumptively a TIA occurring just prior to arrival to the emergency department that has now resolved. Patient is currently on Eliquis 5 mg twice daily has taken no Eliquis today. Patient has taken none of her medications today. Patient placed on surveillance monitor no findings for atrial fibrillation. EKG ordered along with imaging and basic labs CT brain noncontrast reveals no acute process specifically no bleed Lab values resulted serum sodium mildly elevated 146. Creatinine chronically elevated as patient is chronic renal insufficiency BUN of 39 creatinine 1.82 this is mildly increased from comparison BUN and creatinine with last visit at time of discharge Patient remains asymptomatic is aware of imaging results and denies any complaints at this time Troponin I is found to be mildly elevated at 0.07 EKG is paced rhythm with intermittent intrinsic rhythm ischemic changes ST segment depression noted inferiorly as well as abnormal T T waves anterior laterally for ischemia patient again asked if any preceding or recent chest pain pressure or discomfort referred neck jaw back shoulder arm pain shortness of breath nausea vomiting and patient denies any discomfort at this time. Patient is aware that she will be admitted for evaluation of recurrent TIA symptoms on Eliquis as well as for serial cardiac enzymes. Patient's case discussed with Dr. Lozada for observation admission is aware patient's case has been discussed with on-call neurology Dr. Watson who request patient to be continued on Eliquis Medical Screen Exam Complete: Yes Emergency Medical Condition: Yes Differential Diagnosis Differential Diagnosis: TIA, CVA, UTI, electrolyte disturbance, arrhythmia, acs , medication noncompliance Medical Records Medical records reviewed: Yes I reviewed the patient's medical records. Lab Data Lab results reviewed: Yes I reviewed the patient's lab results. Result diagrams: 07/02/18 19:52 07/02/18 19:52 Lab Results 07/02/18 07/02/18 07/02/18 Range/Units 19:52 19:52 19:52 WBC 8.9 (4.0-11.0) th/mm3 RBC 4.09 (4.00-5.30) mil/mm3 Hgb 12.1 (11.6-15.3) gm/dL Hct 37.5 (35.0-46.0) % MCV 91.6 (80.0-100.0) fL MCH 29.6 (27.0-34.0) pg MCHC 32.3 (32.0-36.0) % RDW 16.7 (11.6-17.2) % Plt Count 299 (150-450) th/mm3 MPV 8.9 (7.0-11.0) fL Neut % (Auto) 77.6 H (16.0-70.0) % Lymph % (Auto) 15.9 (9.0-44.0) % [place] % (Auto) 5.1 (0.0-8.0) % Eos % (Auto) 0.8 (0.0-4.0) % Baso % (Auto) 0.6 (0.0-2.0) % Neut # (Auto) 6.9 (1.8-7.7) th/mm3 Lymph # (Auto) 1.4 (1.0-4.8) th/mm3 [place] # (Auto) 0.4 (0.0-0.9) th/mm3 Eos # (Auto) 0.1 (0.0-0.4) th/mm3 Baso # (Auto) 0.1 (0.0-0.2) th/mm3 WBC Differential . Differential Comment Auto diff final PT 11.4 (9.8-11.6) sec INR 1.1 Ratio APTT 26.0 (24.3-30.1) sec Sodium 146 H (136-145) meq/L Potassium 4.4 (3.5-5.1) meq/L Chloride 110 H (98-107) meq/L Carbon Dioxide 27.6 (21.0-32.0) meq/L Anion Gap 8 (5-15) meq/L BUN 39 H (7-18) mg/dL Creatinine 1.82 H (0.50-1.00) mg/dL Estimated GFR 27 L (>89) mL/min Random Glucose 103 (74-106) mg/dL Calcium 9.7 (8.5-10.1) mg/dL Total Creatine Kinase 35 (26-192) U/L Troponin I 0.07 H (0.02-0.05) ng/mL 07/02/18 Range/Units 22:45 WBC (4.0-11.0) th/mm3 RBC (4.00-5.30) mil/mm3 Hgb (11.6-15.3) gm/dL Hct (35.0-46.0) % MCV (80.0-100.0) fL MCH (27.0-34.0) pg MCHC (32.0-36.0) % RDW (11.6-17.2) % Plt Count (150-450) th/mm3 MPV (7.0-11.0) fL Neut % (Auto) (16.0-70.0) % Lymph % (Auto) (9.0-44.0) % [place] % (Auto) (0.0-8.0) % Eos % (Auto) (0.0-4.0) % Baso % (Auto) (0.0-2.0) % Neut # (Auto) (1.8-7.7) th/mm3 Lymph # (Auto) (1.0-4.8) th/mm3 [place] # (Auto) (0.0-0.9) th/mm3 Eos # (Auto) (0.0-0.4) th/mm3 Baso # (Auto) (0.0-0.2) th/mm3 WBC Differential Differential Comment PT (9.8-11.6) sec INR Ratio APTT (24.3-30.1) sec Sodium (136-145) meq/L Potassium (3.5-5.1) meq/L Chloride (98-107) meq/L Carbon Dioxide (21.0-32.0) meq/L Anion Gap (5-15) meq/L BUN (7-18) mg/dL Creatinine (0.50-1.00) mg/dL Estimated GFR (>89) mL/min Random Glucose (74-106) mg/dL Calcium (8.5-10.1) mg/dL Total Creatine Kinase (26-192) U/L Troponin I 0.12 H (0.02-0.05) ng/mL Imaging Data Radiologist's impression: Head CT 07/02/18 19:21 CONCLUSION: 1. No acute hemorrhage, mass or evidence of acute infarction. 2. Stable small lacunar infarcts and chronic small vessel ischemic change. . ECG Data EKG Prior to Arrival: No Interpretation: EKG: Electronically paced rhythm with intermittent intrinsic rhythm with ST depression inferiorly and T wave changes anterolaterally for ischemia;no acute ST elevation; comparison EKG paced o/w not available for review. Discharge Plan Discharge Disposition Patient Disposition: 30 Still Patient Discharge Condition Condition: Stable Discharge Details Diagnosis: TIA (transient ischemic attack), Elevated troponin Physicians Team ED Provider: Vonnie Chakraborty Primary Care Provider: Gaurav Jeff Attending Provider: Kranthi Lozada Other Providers: Elmer Payne Status ED Status: Admitted Observation Patient
--- NOTE | 2018-07-02 20:05 | CT ---
EXAM DATE: 07/02/2018 8:00 PM EDT AGE/SEX: 77 years / Female INDICATIONS: Right sided weakness. Dizziness. Old lacunar infarcts. CLINICAL DATA: This is the patient's initial encounter. Patient reports that signs and symptoms have been present for 1 day and indicates a pain score of 0/10. MEDICAL/SURGICAL HISTORY: Stroke. Transient ischemic attack. Pacemaker. RADIATION DOSE: 37.88 CTDI (mGy) [place] [facility] [place]. . TECHNIQUE: CT of the head without contrast. Using automated exposure control and adjustment of the mA and/or kV according to patient size, radiation dose was kept as low as reasonably achievable to ob tain optimal diagnostic quality images. DICOM format image data is available electronically for revi ew and comparison. FINDINGS: Cerebrum: The ventricles are normal for age with moderate atrophic change. No evidence of midline sh ift, mass lesion, hemorrhage or acute infarction. Old lacunar infarcts are again noted in the basal g anglia. Chronic small vessel ischemic changes are present. No extraaxial fluid collections are seen. Posterior Fossa: The cerebellum and brainstem are intact. The 4th ventricle is midline. The cerebe llopontine angle is unremarkable. Extracranial: The visualized portion of the orbits is intact. There is a retention cyst in the left maxillary sinus. Skull: The calvaria is intact. No evidence of skull fracture. CONCLUSION: 1. No acute hemorrhage, mass or evidence of acute infarction. 2. Stable small lacunar infarcts and chronic small vessel ischemic change. . Electronically signed by: Erwin Kline MD 07/02/2018 8:04 PM EDT
[2018-07-02 20:07] LABS: Baso # (Auto) 0.1 th/mm3 (0.0-0.2); Baso % (Auto) 0.6 % (0.0-2.0); Eos # (Auto) 0.1 th/mm3 (0.0-0.4); Eos % (Auto) 0.8 % (0.0-4.0); Hematocrit 37.5 % (35.0-46.0); Hemoglobin 12.1 gm/dL (11.6-15.3); Lymph # (Auto) 1.4 th/mm3 (1.0-4.8); Lymph % (Auto) 15.9 % (9.0-44.0); Mean Corpuscular HGB Conc 32.3 % (32.0-36.0); Mean Corpuscular Hemoglobin 29.6 pg (27.0-34.0); Mean Corpuscular Volume 91.6 fL (80.0-100.0); Mean Platelet Volume 8.9 fL (7.0-11.0); Mono # (Auto) 0.4 th/mm3 (0.0-0.9); Mono % (Auto) 5.1 % (0.0-8.0); Neut # (Auto) 6.9 th/mm3 (1.8-7.7); Neut % (Auto) 77.6 % (16.0-70.0); Platelet Count 299 th/mm3 (150-450); Red Blood Count 4.09 mil/mm3 (4.00-5.30); Red Cell Distribution Width 16.7 % (11.6-17.2); White Blood Count 8.9 th/mm3 (4.0-11.0)
[2018-07-02 20:17] LABS: INR 1.1 Ratio; Prothrombin Time 11.4 sec (9.8-11.6)
[2018-07-02 20:24] LABS: Calcium 9.7 mg/dL (8.5-10.1); Carbon Dioxide 27.6 meq/L (21.0-32.0); Potassium 4.4 meq/L (3.5-5.1)
[2018-07-02 20:29] LABS: Troponin I 0.07 ng/mL (0.02-0.05)
[2018-07-02] MEDS ORDERED: Bisacodyl 10 MG Supp RECTAL PRN (21:43)
[2018-07-02] MEDS ORDERED: Sodium Chlor 0.9% Inj 250 ML IV.SIG SCH (22:00)
[2018-07-02] MEDS ORDERED: Sodium Chloride 0.9% 2 ML Flush PRN IV.FLUSH (22:00)
[2018-07-02] MEDS: Sod Chloride 0.9% Inj 1,000 ML IV.CONT SCH (22:03)
[2018-07-02 23:25] LABS: Bilirubin,Urine Negative (Negative); Clarity,Urine Clear (Clear); Color,Urine Yellow (Yellw/Straw); Glucose,Urine (UA) Negative (Negative); Leukocyte Esterase,Urine Negative (Negative); Nitrite,Urine Negative (Negative); Urobilinogen,Urine 0.2 mg/dL (Less than 2)
[2018-07-02 23:49] LABS: Specific Gravity,Urine 1.011 (1.002-1.035)
[2018-07-02 23:50] LABS: WBC,Urine 0-5 /hpf (0-5)
--- NOTE | 2018-07-03 02:47 | P.HPIM ---
History of Present Illness Service: [facility] Hospitalists . Primary Care Physician: Gaurav Jeff Chief Complaint: confusion, speech problems, right sided weakenss and right arm tremors History of Present Illness: Ms. Lomeli is a 77 y/o female with a history of a CVA 12 years ago, TIA 3 weeks ago, atrial fibrillation, sick sinus syndrome status post pacemaker placement , and chronic kidney disease who presented to the emergency room on 07/02 after a neighbor called EMS because the patient seemed to be having some confusion, possible expressive aphasia, right-sided weakness, and right hand tremor. Head CT showed no acute hemorrhage, mass, or acute infarction; stable small lacunar infarcts and chronic small vessel ischemic changes. The patient was admitted to the hospitalist team for further evaluation. The patient is seen in the CDU. She is alert and oriented and able to recall her medical history and treating physicians. She has a very slight hesitation in her speech but it is very minimal and she has no focal deficits noted on neurological examination. The patient states she was playing cards at the clubhouse of her apartment when her friends noticed her right hand tremoring and called EMS. She reports that she does not have a great deal of memory regarding the event and denies having any unilateral weakness or speech problems and these were reported in the emergency room physician's documentation. She states she has been feeling very tired recently and slept for quite a bit of the day on Saturday. Reportedly, she did not take some of her medications on 07/01/2018 due to sleepiness. Inpatient Certification: I certify that the inpatient services were ordered in accordance with Medicare regulations governing the order. This includes certification that hospital inpatient services are reasonable and necessary and in the case of services not specified as inpatient-only under 42 CFR 419.22(n), that they are appropriately provided as inpatient services in accordance to with the 2-midnight benchmark under 43 CFR 412.3(e) Estimated Total Length of Stay (Days): 3 Plans for Post Hospital Care: Not yet determined Review of Systems All other systems reviewed negative except as stated in [facility]PI [facility] - History History Provided By: Patient - Medical History Medical History: Medical History (Last Updated 07/03/18 @ 02:20 by PRESTON Echavarria) Chronic kidney disease TIA (transient ischemic attack) Type 2 diabetes mellitus Afib Pacemaker Stroke - Surgical History Surgical History: Surgical History (Last Updated 07/03/18 @ 02:20 by PRESTON Echavarria) History of permanent cardiac pacemaker placement Onset Date: ~03/27/17 - Family History Family History: Family History (Last Reviewed 07/03/18 @ 03:23 by PRESTON Echavarria) Mother Hypertension Colon cancer - Social History I have reviewed the patient's Social History: Yes - Tobacco History Second Hand Smoke Exposure: No Smoking Status: Never smoker - Alcohol History How Often Do You Have a Drink Containing Alcohol: Never - Substance Use History Substance History: No History of Abuse - Travel History Recent Travel in the [place] Within the Last 8 Weeks: No Recent Travel Out of the Country Within the Last 8 Weeks: No - Immunization History Tetanus Immunization: <5 Years Medications and Allergies Active Medications: Active Medications Al Hydroxide/Mg Hydroxide (Milk Of Magnesia Liq) 30 ml PO Q12H PRN PRN Reason: Mild Constipation Apixaban (Eliquis) 5 mg PO BID KENROY Atorvastatin Calcium (Lipitor) 40 mg PO DAILY KENROY Bisacodyl (Dulcolax Supp) 10 mg RECTAL DAILY PRN PRN Reason: SEVERE CONSITIPATION Clonidine HCl (Catapres) 0.2 mg PO BID KENROY Diltiazem HCl (Cardizem Cd 24hr) 120 mg PO DAILY KENROY Furosemide (Lasix) 20 mg PO DAILY KENROY Sodium Chloride (Ns Inj) 1,000 mls @ 70 mls/hr IV.CONT .[id number] KENROY Last Admin: 07/02/18 22:03 Dose: 70 mls/hr Lactulose (Lactulose Liq) 30 ml PO DAILY PRN PRN Reason: SEVERE CONSITIPATION Sennosides (Senokot) 17.2 mg PO Q12H PRN PRN Reason: Moderate Constipation Sodium Chloride (Ns Flush) 2 ml IV.FLUSH BID KENROY Sodium Chloride (Ns Flush) 2 ml IV.FLUSH PRN PRN PRN Reason: FLUSH AFTER USING IV ACCESS Allergies Allergy/AdvReac Type Severity Reaction Status Date / Time No Known Allergies Allergy Verified 07/02/18 18:40 Home Medications Medication Instructions Recorded Confirmed Type apixaban [Eliquis] 5 mg PO BID 05/27/18 07/02/18 History atorvastatin 40 mg PO DAILY 05/27/18 07/02/18 History cholecalciferol (vitamin D3) 5,000 unit PO DAILY 05/27/18 07/02/18 History [Vitamin D3] clonidine HCl 0.2 mg PO BID 05/27/18 07/02/18 History diltiazem HCl [DILT-XR] 120 mg PO DAILY 05/27/18 07/02/18 History ferrous sulfate 325 mg PO DAILY 05/27/18 07/02/18 History furosemide 20 mg PO DAILY 05/27/18 07/02/18 History omega 5-yck-sjr-fish oil [Fish Oil] 1,000 mg PO DAILY 05/27/18 07/02/18 History potassium chloride 10 meq PO DAILY 05/27/18 07/02/18 History lisinopril 40 mg PO DAILY 05/28/18 07/02/18 History metformin 500 mg PO DAILY 05/28/18 07/02/18 History Exam Vital signs: Vital Signs 07/02/18 18:36 07/02/18 20:01 07/02/18 23:02 Temperature 99.1 F Pulse Rate 80 70 70 Respiratory Rate 20 18 18 Blood Pressure 196/77 H 136/72 135/75 Pulse Oximetry 99 99 98 07/02/18 23:43 Temperature 98.7 F Pulse Rate 71 Respiratory Rate 18 Blood Pressure 148/86 H Pulse Oximetry 93 L Intake & Output 07/02/18 07/02/18 07/03/18 06:59 18:59 06:59 Weight 70.307 kg 70.3 kg Other: Weight On Admission 70.3 kg Narrative: GENERAL: This is a well-nourished, well-developed patient, in no apparent distress. SKIN: No rashes, ecchymoses or lesions. Cool and dry. HEAD: Atraumatic. Normocephalic. EYES: No scleral icterus. No injection or drainage. ENT: Nose without bleeding, purulent drainage. NECK: Trachea midline. No JVD or lymphadenopathy. CARDIOVASCULAR: Regular rate and rhythm without murmurs, gallops, or rubs. RESPIRATORY: Clear to auscultation. Breath sounds equal bilaterally. No wheezes , rales, or rhonchi. GASTROINTESTINAL: Abdomen soft, non-tender, nondistended. No guarding. MUSCULOSKELETAL: Extremities without clubbing, cyanosis, or edema. No calf tenderness. NEUROLOGICAL: Awake and alert. Motor and sensory grossly within normal limits. Patient demonstrates a minimal intermittent hesitancy before saying words - not sure about baseline. No pronator drift. CN II-XII grossly intact. . Results - Labs CBC & Chem 7: 07/02/18 19:52 07/02/18 19:52 Labs: Short CBC 07/02/18 Range/Units 19:52 WBC 8.9 (4.0-11.0) th/mm3 Hgb 12.1 (11.6-15.3) gm/dL Hct 37.5 (35.0-46.0) % Plt Count 299 (150-450) th/mm3 BMP 07/02/18 19:52 Sodium 146 H Potassium 4.4 Chloride 110 H Carbon Dioxide 27.6 BUN 39 H Creatinine 1.82 H Calcium 9.7 Cardiac Enzymes 07/02/18 07/02/18 07/03/18 Range/Units 19:52 22:45 01:45 Total Creatine Kinase 35 (26-192) U/L Troponin I 0.07 H 0.12 H 0.11 H (0.02-0.05) ng/mL Urine 07/02/18 Range/Units 22:02 Urine Color Yellow (Yellw/Straw) Urine Clarity Clear (Clear) Urine pH 6.0 (5.0-8.5) Ur Specific [place] 1.011 (1.002-1.035) Urine Protein Negative (Neg-Trace) mg/dL Urine Glucose (UA) Negative (Negative) mg/dL - Imaging Impressions Head CT 07/02/18 19:21 CONCLUSION: 1. No acute hemorrhage, mass or evidence of acute infarction. 2. Stable small lacunar infarcts and chronic small vessel ischemic change. . Caprini VTE Risk Assessment Caprini VTE Risk Assessment: Moderate/High Risk (score >= 2) Caprini Risk Assessment Model: Point Value = 1 Point Value = 2 Point Value = 3 Point Value = 5 Age 41-60 Minor surgery BMI > 25 kg/m2 Swollen legs Varicose veins or History of unexplained or recurrent spontaneous Oral contraceptives or hormone replacement Sepsis (< 1 month) Serious lung disease, including pneumonia (< 1 month) Abnormal pulmonary function Acute myocardial infarction Congestive heart failure (< 1 month) History of inflammatory bowel disease Medical patient at bed rest Age 61-74 Arthroscopic surgery Major open surgery (> 45 min) Laparoscopic surgery (> 45 min) Malignancy Confined to bed (> 72 hours) Immobilizing plaster cast Central venous access Age >= 75 History of VTE Family history of VTE Factor V Leiden Prothrombin [id number] Lupus anticoagulant Anticardiolipin antibodies Elevated serum homocysteine Heparin-induced thrombocytopenia Other congenital or acquired thrombophilia Stroke (< 1 month) Elective arthroplasty Hip, pelvis, or leg fracture Acute spinal cord injury (< 1 month) Prophylaxis Regimen: Total Risk Factor Score Risk Level Prophylaxis Regimen 0-1 Low Early ambulation 2 Moderate Order ONE of the following: *Sequential Compression Device (SCD) *Heparin 5000 units SQ BID 3-4 Higher Order ONE of the following medications: *Heparin 5000 units SQ TID *Enoxaparin/Lovenox 40 mg SQ daily (WT < 150 kg, CrCl > 30 mL/min) *Enoxaparin/Lovenox 30 mg SQ daily (WT < 150 kg, CrCl > 10-29 mL/min) *Enoxaparin/Lovenox 30 mg SQ BID (WT < 150 kg, CrCl > 30 mL/min) AND/OR *Sequential Compression Device (SCD) 5 or more Highest Order ONE of the following medications: *Heparin 5000 units SQ TID (Preferred with Epidurals) *Enoxaparin/Lovenox 40 mg SQ daily (WT < 150 kg, CrCl > 30 mL/min) *Enoxaparin/Lovenox 30 mg SQ daily (WT < 150 kg, CrCl > 10-29 mL/min) *Enoxaparin/Lovenox 30 mg SQ BID (WT < 150 kg, CrCl > 30 mL/min) AND *Sequential Compression Device (SCD) Assessment and Plan - Plan Ms. Lomeli is a 77 y/o female with a history of a CVA 12 years ago, TIA 3 weeks ago, atrial fibrillation, sick sinus syndrome status post pacemaker placement , and chronic kidney disease who presented to the emergency room on 07/02 after a neighbor called EMS because the patient seemed to be having some confusion, possible expressive aphasia, right-sided weakness, and right hand tremor. Head CT showed no acute hemorrhage, mass, or acute infarction; stable small lacunar infarcts and chronic small vessel ischemic changes. MRI/MRA could not be done d/t pacemaker. The patient was admitted to the hospitalist team for further evaluation. TIA vs CVA - Head CT showed no acute hemorrhage, mass, or acute infarction; stable small lacunar infarcts and chronic small vessel ischemic changes. -Continue home Eliquis -Add daily ASA 325 mg -consult to neurology - assistance appreciated -Frequent neuro checks and vital signs -N.p.o. 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 -appreciate assistance Atrial fibrillation -continuous cardiac telemetry to monitor for arrhythmia to monitor heart rate -Continue home diltiazem -Eliquis as above Type 2 Diabetes Mellitus -Hemoglobin A1c 6.4 on 05/28/2018 -Accu-Cheks before meals and at bedtime with low-dose NovoLog sliding scale coverage -Hypoglycemia protocol -Monitor trends and blood glucose readings and adjust treatments as indicated Hyperlipidemia -Lipid profile 05/28/2018 showed triglycerides 65, total cholesterol 127, LDL 47 , and HDL 67.4 -Continue home atorvastatin Chronic kidney disease -BUN elevated at 39, creatinine elevated at 1.82, estimated GFR low at 27 -some alert labs 05/27/2018 -Gentle IV fluid hydration with normal saline at 70 cc/h -Avoid nephrotoxins -Monitor renal functions DVT prophylaxis -Home Eliquis resumed Discussed Condition With: Dr. Lozada, patient, and RN . H&P: Quality - VTE Deep Vein Thrombosis/Pulmonary Embolism Present on Admission: No
[2018-07-03] MEDS ORDERED: Dextrose 50% in Water 50 ML Vial IV.PUSH PRN (03:20)
--- NOTE | 2018-07-03 03:53 | XR ---
EXAM DATE: 07/03/2018 3:43 AM EDT AGE/SEX: 77 years / Female INDICATIONS: Shortness of breath CLINICAL DATA: This is the patient's initial encounter. Patient reports that signs and symptoms have been present for 1 day and indicates a pain score of 0/10. MEDICAL/SURGICAL HISTORY: Cardiovascular disease. Pacemaker. COMPARISON: C, CHEST 1V SINGLE AP, 05/27/2018. . FINDINGS: No infiltrate, effusion or pneumothorax. Heart size stable, upper limits of normal. Cardiac pacer again seen. Thoracic aorta is tortuous and atherosclerotic. CONCLUSION: No acute cardiopulmonary disease demonstrated. Electronically signed by: Suman Lorenz MD 07/03/2018 3:52 AM EDT
[2018-07-03] MEDS: Insulin NovoLOG Aspart Correctional Sugar Inj SQ SCH ×4 (08:00→21:16)
[2018-07-03] MEDS ORDERED: Aspirin 325 MG Tablet PO SCH (09:00)
[2018-07-03 09:12] LABS: Baso # (Auto) 0.1 th/mm3 (0.0-0.2); Baso % (Auto) 0.8 % (0.0-2.0); Eos # (Auto) 0.1 th/mm3 (0.0-0.4); Eos % (Auto) 1.1 % (0.0-4.0); Hematocrit 34.5 % (35.0-46.0); Hemoglobin 11.5 gm/dL (11.6-15.3); Lymph # (Auto) 2.1 th/mm3 (1.0-4.8); Lymph % (Auto) 22.9 % (9.0-44.0); Mean Corpuscular HGB Conc 33.4 % (32.0-36.0); Mean Corpuscular Hemoglobin 30.7 pg (27.0-34.0); Mean Corpuscular Volume 91.8 fL (80.0-100.0); Mono # (Auto) 0.6 th/mm3 (0.0-0.9); Mono % (Auto) 6.6 % (0.0-8.0); Neut # (Auto) 6.3 th/mm3 (1.8-7.7); Neut % (Auto) 68.6 % (16.0-70.0); Platelet Count 238 th/mm3 (150-450); Red Blood Count 3.76 mil/mm3 (4.00-5.30); Red Cell Distribution Width 16.9 % (11.6-17.2); White Blood Count 9.2 th/mm3 (4.0-11.0)
--- NOTE | 2018-07-03 09:27 | MB ---
cc: Balbir Jones MD DATE: 07/03/2018 HISTORY OF PRESENT ILLNESS: A 77-year-old right-handed woman with hypertension, [id number]-ffvegbvme diabetes, hypercholesterolemia, pacemaker, on Eliquis, sees Dr. Orosco. She had a stroke she says 13 years ago, left-sided weakness, which he had full recovery for. Then about 2 weeks ago, she said she had another stroke with left-sided weakness. She is on Eliquis, she thinks 2.5 b.i.d. Then, yesterday she had about 2 seconds of right hand tremor and was brought into the hospital. She says there was nothing more than that. No chest pain, palpitations, or headache. No history of seizures. She has not woken up wet the bed or bit her tongue. No odd smells, tastes, or rene vu. She initially came to ER after a neighbor who was with her said she had change in her speech, confusion, possible aphasia and right-sided weakness. The patient herself said she just had a right hand tremor when she was holding some cards. She felt somewhat tired recently and had not got up until 2 p.m. NIH stroke scale was 0 in the ER. REVIEW OF SYSTEMS: Denies any CABG; stent; renal, hepatic, or pulmonary disease; thyroid disease; lupus; ulcer; cancer; seizure. SOCIAL HISTORY: Not a smoker or drinker, lives by herself. FAMILY HISTORY: Negative for cancer, seizure, or stroke. PAST MEDICAL HISTORY: Seen by Dr. Harris on 05/28 with slurred speech, abdominal pain. She was taking Eliquis twice a day at that time, 5 mg b.i.d., and thought her memory was slightly impaired, very mild dyskinetic movements, normal strength and tone. CBC showed chronic changes, stable. MEDICATIONS: Here and at home: Potassium, fish oil, metformin, lisinopril, Lasix, iron, clonidine, atorvastatin, Eliquis 5 b.i.d., diltiazem. PHYSICAL EXAMINATION: VITAL SIGNS: Possibly atrial flutter on the EKG. Afebrile, 71, 16, 196/77-129/71. NECK: There are no carotid bruits. HEART: Regular rhythm. I do not detect a murmur. NEUROLOGIC: Pupils are equal. Visual stephens are full. Extraocular movements intact without nystagmus. Face is symmetric with normal sensation. Tongue was midline. Hearing was intact. There is no drift. She had normal strength in upper and lower extremities bilaterally. DTRs are trace throughout. Toes withdrew bilaterally, maybe a little bit more on the left than the right. Pinprick was intact throughout. She is not ataxic on [id number]. Speech is fluent. She is not aphasic. Gives a good history. DIAGNOSTIC DATA: Labs: CBC is normal. UA normal. Basic metabolic profile: Creatinine 1.8, BUN 39. Troponin 0.07- 0.11. CPK was normal. Coags normal. Recently, she had an LDL that was normal in 12/2017. LFTs normal recently. UA was quite positive in 12/2017. C. difficile has been negative in December. She had MRI of the brain in May. No new stroke, some atrophy and white matter changes. She had an MRA of the neck in May that was normal. She had an MRA of the jena of [place] in 05/2018, that was normal. She had a CT scan of the brain yesterday, stable small lacunar-type infarcts. Review of those films, events are a little bit prominent white matter changes. I do not see any major stroke. Review of her brain MRI from May is showing basically the same as the CT scan, white matter changes bilaterally. No cortically-based infarct. She had an EEG done in May that was normal. Other labs here, a UA yesterday was normal. Her B12 in May and thyroid were normal. Ammonia level was normal in May. IMPRESSION AND PLAN: She looks at baseline at this time. She has got some renal insufficiency and this is progressively somewhat worse than it was in March of last year, but better than in December. At this time, I would continue on her Eliquis. I am not sure there is much really new going on here. We could add on a baby aspirin. I note she has a history of atrial fibrillation by Holter monitor in May and looks like atrial flutter on her EKG here and her echocardiogram on last admission was essentially unremarkable. I think she is okay to be discharged. She could follow up in the office. I do not see anything new here neurologically. If we repeat an MRI and that is negative, she can be discharged. MD FRANCA Brasher/edda , 08:25 AM , 08:37 AM
[2018-07-03 09:41] LABS: Calcium 9.2 mg/dL (8.5-10.1); Carbon Dioxide 26.2 meq/L (21.0-32.0); Potassium 4.4 meq/L (3.5-5.1)
[2018-07-03] MEDS: dilTIAZem CD 120 MG Capsule PO SCH (10:30)
[2018-07-03] MEDS: Furosemide 20 MG Tablet PO SCH (10:30)
--- NOTE | 2018-07-03 13:02 | MR ---
EXAM DATE: 07/03/2018 12:34 PM EDT AGE/SEX: 77 years / Female INDICATIONS: CVA. CLINICAL DATA: This is the patient's initial encounter. Patient reports that signs and symptoms have been present for 1 day and indicates a pain score of 0/10. MEDICAL/SURGICAL HISTORY: Hypertension. Pacemaker. COMPARISON: [facility] [place], MR HEAD W/O CONTRAST, 05/28/2018. . TECHNIQUE: Multiplanar, multisequence examination of the brain was performed without contrast. FINDINGS: Cerebrum: There is diffuse atrophy. The ventricles are normal for age. No evidence of midline shift , mass lesion, hemorrhage or acute infarction. No extraaxial fluid collections are seen. The pituit ryan gland and suprasellar cistern are normal in configuration. White Matter: No significant signal abnormalities are seen in the white matter. Posterior Fossa: The cerebellum and brainstem are intact. The 4th ventricle is midline. The cerebel lopontine angle is unremarkable. The cerebellar tonsils are normal in position. Diffusion Imaging: No focal areas of restricted diffusion are seen. No evidence of acute infarction . Extracranial: The visualized portions of the orbits and paranasal sinuses are unremarkable. CONCLUSION: 1. Diffuse atrophy and ischemic demyelinization. Very similar to May exam. No visible acute st roke is identified on the diffusion-weighted sequences Electronically signed by: Jurgen Alfred MD 07/03/2018 1:00 PM EDT
--- NOTE | 2018-07-03 15:44 | ECG ---
Date Performed: 07/02/2018 Time Performed: 20:22:14 PTAGE: 77 years EKG: Atrial fibrillation with demand pacing. Since previous tracing, no significant change noted ABNORMAL ECG PREVIOUS TRACING : 05/27/2018 18.42 DOCTOR: Corbin Orosco Interpretating Date/Time 07/03/2018 15:42:48
--- NOTE | 2018-07-03 15:45 | ECG ---
Date Performed: 07/02/2018 Time Performed: 23:01:07 PTAGE: 77 years EKG: Atrial fibrillation with demand pacing. Since previous tracing, no significant change noted ABNORMAL ECG PREVIOUS TRACING : 07/02/2018 20.22 DOCTOR: Corbin Orosco Interpretating Date/Time 07/03/2018 15:43:15
--- NOTE | 2018-07-03 15:49 | ECG ---
Date Performed: 07/03/2018 Time Performed: 01:36:17 PTAGE: 77 years EKG: Atrial fibrillation with emand pacing. Since previous tracing, no significant change noted ABNORMAL ECG PREVIOUS TRACING : 07/02/2018 23.01.07 DOCTOR: Corbin Orosco Interpretating Date/Time 07/03/2018 15:47:46
[2018-07-03] MEDS: Sodium Chloride 0.9% 2 ML Flush BID IV.FLUSH SCH ×2 (19:06→21:39)
[2018-07-03] MEDS: Sod Chloride 0.9% Inj 1,000 ML IV.CONT SCH (19:06)
--- NOTE | 2018-07-03 23:55 | MB ---
cc: BrentDominic Sarah CEE DATE: 07/03/2018 REASON FOR CONSULTATION: Elevated troponin. HISTORY OF PRESENT ILLNESS: Janessa Lomeli is a pleasant 77-year-old female who sees my partner, Dr. Orosco, in the office and presented to [facility] due to neurological issues. She states that she came in because her hand was shaking like a tremor, but apparently there was some concern for slurred speech and confusion as well as possible expressive aphasia and right-sided weakness. During the workup, a troponin was checked and found to be elevated. I was asked to see her for this. She denies any chest pain or shortness of breath. She was seen by neurology and they felt that there was no new neurological compromise. PAST MEDICAL HISTORY: 1. Atrial fibrillation. 2. Recent TIA. 3. History of a CVA. 4. Chronic kidney disease. 5. Type 2 diabetes mellitus. PAST SURGICAL HISTORY: Placement of a permanent pacemaker (03/27/2017). ALLERGIES: NO KNOWN DRUG ALLERGIES. MEDICATIONS: 1. Lasix 20 mg daily. 2. Iron 325 mg daily. 3. Potassium chloride 10 mEq daily. 4. Cardizem CD 120 mg daily. 5. Clonidine 0.2 mg b.i.d. 6. Lipitor 40 mg daily. 7. Eliquis 5 mg b.i.d. 8. Fish oil 1000 mg daily. 9. Lisinopril 40 mg daily. 10. Metformin 500 mg daily. FAMILY HISTORY: Denies premature coronary artery disease or sudden cardiac within the family. SOCIAL HISTORY: Denies tobacco, alcohol or drug abuse. REVIEW OF SYSTEMS: Fourteen systems were reviewed including osteopathic. Pertinent positives and negatives above, otherwise negative. PHYSICAL EXAMINATION: VITAL SIGNS: Temperature 98.5, heart rate 68, blood pressure 154/78, respirations 16, pulse oximetry 95% on room air. GENERAL: The patient appears well, in no acute distress, alert, awake and oriented x 3. HEENT: Extraocular muscles intact. Mucous membranes moist. NECK: Supple. No JVD at 45 degrees. No carotid bruits heard bilaterally. Carotid upstroke is brisk in nature. HEART: Regular rate and rhythm. Positive first and second heart sounds with no noted murmurs, gallops or rubs. LUNGS: Clear to auscultation bilaterally. No wheezes, rales or rhonchi. ABDOMEN: Soft, nontender, nondistended. No organomegaly noted. EXTREMITIES: Show no clubbing, cyanosis or edema. She may have slight weakness on the left side compared to the right side, but this is minimal. SKIN: Warm, dry and intact. OSTEOPATHIC: No kyphoscoliosis, lordosis or paraspinal tender points. LABORATORY DATA: Hemoglobin 11.5, hematocrit 34.5, platelets 238. Potassium 4.4, BUN 34, creatinine 1.55. Troponin flat at 0.12. Electrocardiogram (07/03/2018 at 0136 hours), atrial fibrillation with demand pacemaker, [place] beats show a right bundle branch pattern with some mild ST-T wave changes. This is similar to previous EKGs noted in the office. IMPRESSION: 1. Possible neurological symptoms due to transient ischemic attack. 2. Minimally elevated troponin. 3. Atrial fibrillation, currently on Eliquis. 4. Type 2 diabetes mellitus. 5. Acute kidney injury. 6. Hyperlipidemia. 7. Baseline chronic kidney disease. RECOMMENDATIONS: 1. Ms. Lomeli presented with neurological symptoms and has been seen by neurology, although they do not feel that this is a new neurological event. She is to undergo an MRI later today. 2. She previously has had a stroke and has known atrial fibrillation and will continue on Eliquis. Neurology has added aspirin to her current Eliquis therapy. 3. She does have a minimally elevated troponin, although this is flat and I would consider this nonspecific. She has no signs or symptoms of acute coronary syndrome. She did come in with accelerated hypertension with a blood pressure of 196/77 as well as some acute on chronic kidney disease. 4. EKG does show some abnormality when not pacing, but this has been seen in the office on previous EKGs. 5. From my standpoint, would not consider further ischemic workup at this time with recent neurological event. 6. No further cardiac workup at this time. The patient may be discharged to follow up with Dr. Orosco as previously scheduled. Thank you for allowing me to see Janessa Lomeli. If there are any questions, please do not hesitate to call. DO STEVAN Majano/ronnie , 10:53 PM , 11:32 PM
[2018-07-04] MEDS: Sod Chloride 0.9% Inj 1,000 ML IV.CONT SCH ×2 (00:40→16:18)
[2018-07-04] MEDS: Insulin NovoLOG Aspart Correctional Sugar Inj SQ SCH ×4 (03:00→18:12)
--- NOTE | 2018-07-04 07:40 | P.PNNEU ---
Subjective Active Medications: Active Medications Al Hydroxide/Mg Hydroxide (Milk Of Magnesia Liq) 30 ml PO Q12H PRN PRN Reason: Mild Constipation Apixaban (Eliquis) 5 mg PO BID [facility] Last Admin: 07/03/18 21:38 Dose: 5 mg Aspirin (Aspirin Chew) 81 mg PO DAILY [facility] Last Admin: 07/03/18 13:19 Dose: 81 mg Atorvastatin Calcium (Lipitor) 40 mg PO DAILY [facility] Last Admin: 07/03/18 10:30 Dose: 40 mg Bisacodyl (Dulcolax Supp) 10 mg RECTAL DAILY PRN PRN Reason: SEVERE CONSITIPATION Clonidine HCl (Catapres) 0.2 mg PO BID [facility] Last Admin: 07/03/18 21:38 Dose: 0.2 mg Dextrose (D50w Vial) 50 ml IV.PUSH UNSCH PRN PRN Reason: PER HYPOGLYCEMIA PROTOCOL Diltiazem HCl (Cardizem Cd 24hr) 120 mg PO DAILY [facility] Last Admin: 07/03/18 10:30 Dose: 120 mg Furosemide (Lasix) 20 mg PO DAILY [facility] Last Admin: 07/03/18 10:30 Dose: 20 mg Glucagon (Glucagon Inj) 1 mg OTHER PRN PRN PRN Reason: for Hypoglycemia Protocol Sodium Chloride (Ns Inj) 1,000 mls @ 70 mls/hr IV.CONT .[id number] [facility] Last Admin: 07/04/18 00:40 Dose: 70 mls/hr Insulin Aspart (Novolog Insulin Correctional Sugar Inj) 0 unit SQ ACHS AND 3AM [facility]; Protocol Last Admin: 07/04/18 03:00 Dose: Not Given Lactulose (Lactulose Liq) 30 ml PO DAILY PRN PRN Reason: SEVERE CONSITIPATION Sennosides (Senokot) 17.2 mg PO Q12H PRN PRN Reason: Moderate Constipation Sodium Chloride (Ns Flush) 2 ml IV.FLUSH BID [facility] Last Admin: 07/03/18 21:39 Dose: Not Given Sodium Chloride (Ns Flush) 2 ml IV.FLUSH PRN PRN PRN Reason: FLUSH AFTER USING IV ACCESS Allergies/Adverse Reactions: Allergies Allergy/AdvReac Type Severity Reaction Status Date / Time No Known Allergies Allergy Verified 07/02/18 18:40 Physical Exam Vital signs: Vital Signs 07/03/18 08:00 07/03/18 08:03 07/03/18 17:25 Temperature 98.6 F 98.5 F Pulse Rate 71 68 Respiratory Rate 16 16 Blood Pressure 177/87 H 154/78 H Pulse Oximetry 95 94 L 95 07/03/18 20:00 07/04/18 00:00 07/04/18 04:00 Temperature 99.0 F 98.5 F 98.4 F Pulse Rate 73 62 65 Respiratory Rate 18 16 16 Blood Pressure 147/77 H 116/69 92/60 L Pulse Oximetry 96 96 96 Intake & Output 07/03/18 07/04/18 07/04/18 18:59 06:59 18:59 Intake Total 1000 / 1000 1000 / 1000 Balance 1000 / 1000 1000 / 1000 Intake: IV 1000 / 1000 1000 / 1000 NS Inj 1,000 ML @ 70 mls/hr IV. 1000 / 1000 1000 / 1000 CONT .[id number] [facility] Rx#:[id number] Other: # Urine Diapers 1 Narrative: awake alert no new co moving ok Objective Laboratory Results - last 24 hr 07/03/18 07/03/18 07/03/18 08:17 08:17 10:45 WBC 9.2 RBC 3.76 L Hgb 11.5 L Hct 34.5 L MCV 91.8 MCH 30.7 MCHC 33.4 RDW 16.9 Plt Count 238 MPV 9.0 Neut % (Auto) 68.6 Lymph % (Auto) 22.9 Wood % (Auto) 6.6 Eos % (Auto) 1.1 Baso % (Auto) 0.8 Neut # (Auto) 6.3 Lymph # (Auto) 2.1 Wood # (Auto) 0.6 Eos # (Auto) 0.1 Baso # (Auto) 0.1 WBC Differential . Differential Comment Auto diff final Sodium 147 H Potassium 4.4 Chloride 111 H Carbon Dioxide 26.2 Anion Gap 10 BUN 34 H Creatinine 1.55 H Estimated GFR 32 L POC Glucose Random Glucose 82 Calcium 9.2 Troponin I 0.09 H 07/03/18 07/03/18 07/03/18 14:13 19:03 20:49 WBC RBC Hgb Hct MCV MCH MCHC RDW Plt Count MPV Neut % (Auto) Lymph % (Auto) [place] % (Auto) Eos % (Auto) Baso % (Auto) Neut # (Auto) Lymph # (Auto) [place] # (Auto) Eos # (Auto) Baso # (Auto) WBC Differential Differential Comment Sodium Potassium Chloride Carbon Dioxide Anion Gap BUN Creatinine Estimated GFR POC Glucose 108 107 Random Glucose Calcium Troponin I 0.11 H Review/Management - Review/Management Plan: imp mri neg for any new or 2 week old cva just some wm changes ok by me to dc on asa [address] mauro 3 weeks
[2018-07-04 08:14] LABS: Calcium 8.6 mg/dL (8.5-10.1); Carbon Dioxide 24.8 meq/L (21.0-32.0); Potassium 4.2 meq/L (3.5-5.1)
[2018-07-04] MEDS: Sodium Chloride 0.9% 2 ML Flush BID IV.FLUSH SCH (09:17)
[2018-07-04] MEDS: dilTIAZem CD 120 MG Capsule PO SCH (09:17)
[2018-07-04] MEDS: Furosemide 20 MG Tablet PO SCH (09:17)
--- NOTE | 2018-07-04 10:07 | P.PN ---
Subjective Interval history: Follow-up for expressive aphasia, right-sided weakness/tremor. Patient reports her symptoms have resolved and she feels back to normal. She denies any headache, lightheadedness, speech deficit, unilateral numbness/tingling, chest pain, shortness of breath, or abdominal complaints. She feels ready for discharge. She has been cleared by both neurology and cardiology. The patient has been instructed to follow-up with her neurologist Dr. Harris and her wardrobe attendant Dr. Orosco, patient verbalized understanding. Physical Exam Vital signs: Vital Signs 07/03/18 17:25 07/03/18 20:00 07/04/18 00:00 Temperature 98.5 F 99.0 F 98.5 F Pulse Rate 68 73 62 Respiratory Rate 16 18 16 Blood Pressure 154/78 H 147/77 H 116/69 Pulse Oximetry 95 96 96 07/04/18 04:00 07/04/18 08:21 Temperature 98.4 F 98.5 F Pulse Rate 65 65 Respiratory Rate 16 20 Blood Pressure 92/60 L 112/71 Pulse Oximetry 96 97 Intake & Output 07/03/18 07/04/18 07/04/18 18:59 06:59 18:59 Intake Total 1000 / 1000 1000 / 1000 Balance 1000 / 1000 1000 / 1000 Intake: IV 1000 / 1000 1000 / 1000 NS Inj 1,000 ML @ 70 mls/hr IV. 1000 / 1000 1000 / 1000 CONT .[id number] [facility] Rx#:[id number] Other: # Urine Diapers 1 Date of Last Bowel Movement 07/03/18 Narrative: GENERAL: Well-nourished, well-developed pleasant elderly female patient in [facility]. SKIN: Warm and dry. No rash. HEENT: Normocephalic. Atraumatic. Pupils equal and round. Mucous membranes pink and moist. CARDIOVASCULAR: Regular rate and rhythm. No murmur appreciated. RESPIRATORY: No accessory muscle use. Clear to auscultation. Breath sounds equal bilaterally. GASTROINTESTINAL: Abdomen soft, non-tender, nondistended. Normoactive bowel sounds x4. MUSCULOSKELETAL: No obvious deformities. Extremities without clubbing, cyanosis , or edema. NEUROLOGICAL: Awake and alert. No obvious cranial nerve deficits. Motor grossly within normal limits. Moving all extremities spontaneously. Normal speech. PSYCHIATRIC: Appropriate mood and affect; insight and judgment normal. Results - Labs CBC & Chem 7: 07/03/18 08:17 07/04/18 07:06 Laboratory Results - last 24 hr 07/03/18 07/03/18 07/03/18 10:45 14:13 19:03 Sodium Potassium Chloride Carbon Dioxide Anion Gap BUN Creatinine Estimated GFR POC Glucose 108 Random Glucose Calcium Troponin I 0.09 H 0.11 H 07/03/18 07/04/18 07/04/18 20:49 07:06 08:58 Sodium 143 Potassium 4.2 Chloride 109 H Carbon Dioxide 24.8 Anion Gap 9 BUN 35 H Creatinine 1.66 H Estimated GFR 30 L POC Glucose 107 116 H Random Glucose 106 Calcium 8.6 Troponin I - Imaging Impressions Head MRI 07/03/18 00:00 CONCLUSION: 1. Diffuse atrophy and ischemic demyelinization. Very similar to May exam. No visible acute stroke is identified on the diffusion-weighted sequences Assessment and Plan - Plan 77 y/o female with a history of a CVA 12 years ago, TIA 3 weeks ago, atrial fibrillation, sick sinus syndrome status post pacemaker placement 03/27/2017, and chronic kidney disease who presented to the emergency room on 07/02/2018 after a neighbor called EMS because the patient seemed to be having some confusion, possible expressive aphasia, right-sided weakness, and right hand tremor. Head CT showed no acute hemorrhage, mass, or acute infarction; stable small lacunar infarcts and chronic small vessel ischemic changes. MRI/MRA could not be done d/t pacemaker. The patient was admitted to the hospitalist team for further evaluation. TIA vs CVA - Head CT showed no acute hemorrhage, mass, or acute infarction; stable small lacunar infarcts and chronic small vessel ischemic changes. -Brain MRI reviewed, shows diffuse atrophy and ischemic demyelinization similar to May exam; no acute stroke -Continue home Eliquis -Added daily ASA 81 mg -consult to neurology - assistance appreciated -Frequent neuro checks and vital signs -PT/OT/ST, recommending home health care and walker, case management arranged prior to discharge -Symptoms resolved, cleared for discharge by neurology, recommended adding aspirin 81 mg daily to her Eliquis Elevated troponin I -Troponin I trended as follows #1 -0.07, #2 -0.12, and #3 -0.11 -was 0.04 on -Consult patient's wardrobe attendant Dr. Orosco, seen by Dr. Kennedy, elevated troponins nonspecific, cleared for discharge with outpatient follow-up Atrial fibrillation -continuous cardiac telemetry to monitor for arrhythmia to monitor heart rate -Continue home diltiazem -on Eliquis as above Type 2 Diabetes Mellitus -Hemoglobin A1c 6.4 on 05/28/2018 -Accu-Cheks before meals and at bedtime with low-dose NovoLog sliding scale coverage -Hypoglycemia protocol -Monitor trends and blood glucose readings and adjust treatments as indicated Hyperlipidemia -Lipid profile 05/28/2018 showed triglycerides 65, total cholesterol 127, LDL 47 , and HDL 67.4 -Continue home atorvastatin Chronic kidney disease -BUN elevated at 39, creatinine elevated at 1.82, estimated GFR low at 27 -some alert labs 05/27/2018 -Gentle IV fluid hydration with normal saline at 70 cc/h -Avoid nephrotoxins -Monitor renal functions DVT prophylaxis -Home Eliquis resumed Discharge Planning: Discharge patient to home with home health care PT/nursing Condition on discharge: Stable Heart healthy diet as tolerated Ad Katya activity Rx written: Aspirin 81 mg daily Follow-up with primary care physician, neurologist Dr. Harris, wardrobe attendant Dr. Orosco
--- NOTE | 2018-07-04 11:04 | P.DCO ---
- Diagnosis (1) History of CVA with residual deficit Status: Acute (2) Hypertension Status: Acute (3) Cognitive impairment Status: Acute (4) TIA (transient ischemic attack) Status: Acute - Physical Therapy Order: Evaluate and treat, Improve ambulation, Strength and gait training - Home Health Nursing Order: Medical education, Signs/symptoms of disease process, Nursing assessment with vital signs - Case Management Consult Yes - Certification I have seen patient Janessa Lomeli on 07/04/18. My clinical findings support the need for the requested home health care services because: Limited mobility due to disease progression, Deconditioned with increased weakness, Limited ability to care for self I certify that my clinical findings support that this patient is homebound because: Unsteady gait/balance, Unsafe to leave home unassisted
--- NOTE | 2018-07-04 23:30 | P.PNCA ---
Subjective Interval history: No events overnight Feels back to baseline Medications and Allergies Allergies Allergy/AdvReac Type Severity Reaction Status Date / Time No Known Allergies Allergy Verified 07/02/18 18:40 Home Medications Medication Instructions Recorded Confirmed Type apixaban [Eliquis] 5 mg PO BID 05/27/18 07/02/18 History atorvastatin 40 mg PO DAILY 05/27/18 07/02/18 History cholecalciferol (vitamin D3) 5,000 unit PO DAILY 05/27/18 07/02/18 History [Vitamin D3] clonidine HCl 0.2 mg PO BID 05/27/18 07/02/18 History diltiazem HCl [DILT-XR] 120 mg PO DAILY 05/27/18 07/02/18 History ferrous sulfate 325 mg PO DAILY 05/27/18 07/02/18 History furosemide 20 mg PO DAILY 05/27/18 07/02/18 History omega 9-cxv-aog-fish oil [Fish Oil] 1,000 mg PO DAILY 05/27/18 07/02/18 History potassium chloride 10 meq PO DAILY 05/27/18 07/02/18 History lisinopril 40 mg PO DAILY 05/28/18 07/02/18 History metformin 500 mg PO DAILY 05/28/18 07/02/18 History Physical Exam Vital signs: Vital Signs 07/04/18 00:00 07/04/18 04:00 07/04/18 08:21 Temperature 98.5 F 98.4 F 98.5 F Pulse Rate 62 65 65 Respiratory Rate 16 16 20 Blood Pressure 116/69 92/60 L 112/71 Pulse Oximetry 96 96 97 Intake & Output 07/04/18 07/04/18 07/05/18 06:59 18:59 06:59 Intake Total 1000 / 1000 1000 / 1000 Balance 1000 / 1000 1000 / 1000 Intake: IV 1000 / 1000 1000 / 1000 NS Inj 1,000 ML @ 70 mls/hr IV. 1000 / 1000 1000 / 1000 CONT .[id number] [facility] Rx#:[id number] Other: # Urine Diapers 1 Date of Last Bowel Movement 07/03/18 Narrative: GENERAL: Well-nourished, well-developed pleasant elderly female patient in [facility]. SKIN: Warm and dry. No rash. HEENT: Normocephalic. Atraumatic. Pupils equal and round. Mucous membranes pink and moist. CARDIOVASCULAR: Regular rate and rhythm. No murmur appreciated. RESPIRATORY: No accessory muscle use. Clear to auscultation. Breath sounds equal bilaterally. GASTROINTESTINAL: Abdomen soft, non-tender, nondistended. Normoactive bowel sounds x4. MUSCULOSKELETAL: No obvious deformities. Extremities without clubbing, cyanosis , or edema. NEUROLOGICAL: Awake and alert. No obvious cranial nerve deficits. Motor grossly within normal limits. Moving all extremities spontaneously. Normal speech. PSYCHIATRIC: Appropriate mood and affect; insight and judgment normal. Results 07/03/18 08:17 07/04/18 07:06 Cardiac Enzymes 07/03/18 07/03/18 07/03/18 Range/Units 01:45 10:45 14:13 Troponin I 0.11 H 0.09 H 0.11 H (0.02-0.05) ng/mL CBC 07/03/18 Range/Units 08:17 WBC 9.2 (4.0-11.0) th/mm3 RBC 3.76 L (4.00-5.30) mil/mm3 Hgb 11.5 L (11.6-15.3) gm/dL Hct 34.5 L (35.0-46.0) % Plt Count 238 (150-450) th/mm3 Neut # (Auto) 6.3 (1.8-7.7) th/mm3 Lymph # (Auto) 2.1 (1.0-4.8) th/mm3 [place] # (Auto) 0.6 (0.0-0.9) th/mm3 Eos # (Auto) 0.1 (0.0-0.4) th/mm3 Baso # (Auto) 0.1 (0.0-0.2) th/mm3 Comprehensive Metabolic Panel 07/03/18 07/04/18 Range/Units 08:17 07:06 Sodium 147 H 143 (136-145) meq/L Potassium 4.4 4.2 (3.5-5.1) meq/L Chloride 111 H 109 H (98-107) meq/L Carbon Dioxide 26.2 24.8 (21.0-32.0) meq/L BUN 34 H 35 H (7-18) mg/dL Creatinine 1.55 H 1.66 H (0.50-1.00) mg/dL Calcium 9.2 8.6 (8.5-10.1) mg/dL Intake and Output 07/04/18 07/04/18 07/05/18 14:59 22:59 06:59 Intake Total 1000 / 1000 Balance 1000 / 1000 Intake: IV 1000 / 1000 NS Inj 1,000 ML @ 70 mls/hr IV. 1000 / 1000 CONT .[id number] [facility] Rx#:[id number] Other: Date of Last Bowel Movement 07/03/18 - Imaging and Cardiology Imaging: Impressions Chest X-Ray 07/03/18 00:00 CONCLUSION: No acute cardiopulmonary disease demonstrated. Head MRI 07/03/18 00:00 CONCLUSION: 1. Diffuse atrophy and ischemic demyelinization. Very similar to May exam. No visible acute stroke is identified on the diffusion-weighted sequences Assessment and Plan - Assessment (1) Chronic arterial ischemic stroke Code(s): I69.30 - Unspecified sequelae of cerebral infarction Status: Acute (2) Hypertension Code(s): I10 - Essential (primary) hypertension Status: Acute (3) TIA (transient ischemic attack) Code(s): G45.9 - Transient cerebral ischemic attack, unspecified Status: Acute (4) Elevated troponin Code(s): R74.8 - Abnormal levels of other serum enzymes Status: Acute (5) History of CVA with residual deficit Code(s): I69.30 - Unspecified sequelae of cerebral infarction Status: Acute - Plan 1) Neurologic event Concern for TIA with history of CVA Eliquis with ASA per Neurology 2) Minimally elevated troponin Non-specific No signs of ACS Con't medical management with recent CVA and possible TIA Consider outpatient stress testing 3) Abnormal EKG Mostly V-paced Occasional elem beats have ST/T wave inversions, similar to previous in the office 4) Cardiovascularly stable for discharge Follow up with Dr. Orosco
== END 2018-07-04 18:47 | disposition home health service (06) ==
LOC: NEDA 18:29 → NEPC 18:29 → NEPHCDU 23:20
PROVIDERS: ADMIT Hospitalist; ATTEND Hospitalist